=== PATIENT | female | born 1940 | race Caucasian/White ===

== ENCOUNTER → 2020-05-24 12:04 | Outpatient (BNVA) | payer MEDICARE, SELFPAY | PROVIDERS: PCP Family Medicine; Visit Provider Internal Medicine Endocrinology, Diabetes & Metabolism | DX: Z13.89 Encounter for screening for other disorder (principal) | CPT/HCPCS: 99212 ==

== ENCOUNTER 2020-05-31 08:05 | Outpatient (REF) | payer MEDICARE, SELFPAY ==
[2020-05-31 10:18] LABS: Estimated Average Glucose 148 mg/dL; Hemoglobin A1c % 6.8 %
[2020-05-31 10:29] LABS: Alkaline Phosphatase 85 U/L (39-117); Anion Gap 16 (12-20); Aspartate Amino Transferase 15 U/L (5-31); Bilirubin Total 0.4 mg/dL (0.0-1.0); Carbon Dioxide 20 mmol/L (22-29); Chloride 104 mmol/L (96-108); Cholesterol 88 mg/dL; Estimated Glomerular Filt Rate 16; Glucose Fasting 139 mg/dL (60-99); Potassium 4.6 mmol/l (3.3-5.1); Sodium 135 mmol/L (135-145); Total Protein 6.9 g/dL (6.5-8.0); Triglycerides 78 mg/dL
[2020-05-31 10:30] LABS: Alanine Aminotransferase 21 U/L (0-31); Calcium 10.8 mg/dL (8.4-10.2); HDL Cholesterol 39 mg/dL; LDL Cholesterol Calculated 34 mg/dl
[2020-05-31 11:09] LABS: Blood Urea Nitrogen 102 mg/dL (9-16)
[2020-05-31 14:17] LABS: Creatinine Urine 35.98 mg/dL; Microalbum/Creatinine Ratio Ur 714.2 ug/mg cr
[2020-06-01 07:22] LABS: LDL Cholesterol Direct 35 mg/dL (<100)
== END 2020-05-31 08:06 | disposition home or self-care (01) ==
LOC: HO.LAB 08:05
PROVIDERS: PCP Family Medicine; Visit Provider Internal Medicine Endocrinology, Diabetes & Metabolism
DX: Z13.89 Encounter for screening for other disorder (principal)
CPT/HCPCS: 80053; 80061; 82043; 83036; 83721

== ENCOUNTER 2020-05-31 12:58 | Inpatient (IN) | payer MEDICARE, SELFPAY ==
[2020-05-31] VITALS (7 sets, daily range): BP systolic 139–179; BP diastolic 56–77; PULSE 66–81; RESP 16–18; TEMP 36.5–36.8; O2SAT 96–100; BMI 17.3
--- NOTE | 2020-05-31 15:32 | ECG_ITS ---
Test Reason : ABNORMAL LABS, WEAKNESS Blood Pressure : / mmHG Vent. Rate : 078 BPM Atrial Rate : 078 BPM P-R Int : 214 ms QRS Dur : 076 ms QT Int : 346 ms P-R-T Axes : 039 018 013 degrees QTc Int : 394 ms Poor data quality Sinus rhythm with 1st degree A-V block Nonspecific ST abnormality Abnormal ECG When compared with ECG of 25-NOV-2018 13:48, Heart rate has increased Nonspecific ST abnormality is new Referred By: Kaleigh Brown Electronically Signed By:JACQUES DICKERSON MD
--- NOTE | 2020-05-31 15:32 | CT_ITS ---
EXAMINATION: CT ABDOMEN AND PELVIS WITHOUT CONTRAST CLINICAL INFORMATION: Nausea. Abdominal pain. COMPARISON: 01/15/2010. Ultrasound 08/26/2018 TECHNIQUE: Multidetector volumetric imaging was performed from the superior aspect of the liver through the pubic symphysis. Sagittal and coronal reformatted images were obtained on the technologist's workstation. This CT examination was performed using dose optimization techniques as appropriate, variously including the following: *Automated exposure control *Adjustment of mA and/or kV according to patient size (this includes techniques or standardized protocols for targeted exams where dose is matched to indication/reason for exam; i.e. extremities or head) *Use of iterative reconstruction technique DLP: 334 mGy-cm FINDINGS: LUNG BASES: Bibasilar atelectasis. Enlarged heart. Note is made of significantly dense bilateral breast tissue. LIVER, GALLBLADDER, AND BILIARY TREE: The liver is normal in size, shape, and attenuation. No focal hepatic lesion or biliary ductal dilatation is present. The gallbladder is unremarkable with no evidence of radiopaque gallstones, gallbladder wall thickening, or obvious pericholecystic inflammatory changes. PANCREAS: Unremarkable. SPLEEN: Unremarkable. ADRENAL GLANDS: Unremarkable. KIDNEYS AND URETERS: There is moderate to severe bilateral hydroureteronephrosis. Atrophic right kidney with cortical thinning. Normal size of the left kidney. There are no renal calculi. The ureters are dilated to the level of the bladder. BLADDER: The bladder is distended. Mild circumferential wall thickening with faint adjacent inflammation. Likely diverticulum at the dome of the bladder. No bladder calculi. GASTROINTESTINAL TRACT: The stomach is unremarkable. Normal caliber small bowel. There is no bowel obstruction. Colonic diverticulosis noted without diverticulitis. Mild to moderate colonic stool burden. No free air or free fluid. ABDOMINAL WALL: No significant hernia is appreciated. LYMPH NODES: Normal. VASCULAR: Normal caliber aorta with mild atherosclerotic calcification. PELVIC VISCERA: The uterus and adnexa are unremarkable. OSSEOUS STRUCTURES: No acute or suspicious osseous abnormality. CT/CT abdomen pelvis wo con IMPRESSION: Moderate to severe bilateral hydroureteronephrosis with dilatation to the level of the bladder. No calculi. Chronic right renal atrophy. The bladder is distended with mild circumferential wall thickening. The presence of bladder diverticulum suggests there may be an outlet obstruction. Cystitis also a consideration.
--- NOTE | 2020-05-31 15:33 | ED_ITS ---
HPI - Recheck/Abnormal Lab/Rx General Chief Complaint: Recheck/Abnormal Lab/Rx Stated Complaint: abnormal lab Time Seen by Provider: 05/31/20 15:31 Source: patient and family Mode of arrival: EMS Limitations: altered mental status History of Present Illness complaint: abnormal lab (BUN) Initial visit (ago): day(s) (today) Initial visit for: other (check up) Returns today for: called because of abnormal lab/test Symptoms since prior visit: no new symptoms Context: called for abnormal lab result Associated symptoms: malaise, nausea and abdominal pain Related Data Home Medications Medication Instructions Recorded Confirmed atorvastatin 10 mg tablet 10 mg PO DAILY 05/24/20 05/31/20 denosumab 60 mg/mL subcutaneous 60 mg SUBCUT [id number] 05/24/20 05/31/20 syringe terazosin 1 mg capsule 1 mg PO BEDTIME 05/24/20 05/31/20 insulin aspart U-100 [Novolog 7 - 10 unit SUBCUT TIDAC 05/31/20 05/31/20 Flexpen U-100 Insulin] insulin glargine U-300 conc 12 unit SUBCUT DAILY 05/31/20 05/31/20 [Toujeo SoloStar U-300 Insulin] patiromer calcium sorbitex 8.4 g PO DAILY 05/31/20 05/31/20 [Veltassa] Allergies Allergy/AdvReac Type Severity Reaction Status Date / Time levofloxacin [From LEVAQUIN] Allergy Unknown RASH Verified 05/31/20 15:17 Review of Systems Review of Systems: Constitutional : No Weight loss, No Fever, No Chills ENT/Mouth : No sore throat, No Rhinorrhea Eyes: No Swelling, No Redness Cardiovascular : No Chest Pain, No SOB, NoEdema Respiratory : No Cough, No Sputum, No Wheezing Gastrointestinal : Positive Nausea, noVomiting, no Diarrhea, positive abdominal Pain, No Hematochezia, No Melena Genitourinary : No Dysuria, No Urinary Frequency, No Hematuria, No Urgency Musculoskeletal : No joint pain, No Myalgias, No Joint Swelling Skin : No Skin Lesions, No rash Neuro : pos Weakness, No Numbness, No Dizziness, No Headache Psych : No Anxiety/Panic, No Depression Heme/Lymph: No Bruising, No Lymphadenopathy Endocrine : No Polyuria, No Polydipsia All other systems reviewed and are negative. [facility] Past Medical History Attestation statement: The following information was validated with the patient. Medical History (Updated 05/31/20 @ 17:12 by Kaleigh Brown DO) CKD (chronic kidney disease) stage 4, GFR 15-29 ml/min Dementia Diabetes type 2, uncontrolled Diabetic nephropathy associated with type 2 diabetes mellitus Intellectual disability detention (current) use of insulin Osteoporosis Parkinson disease Urinary retention Social History Social History Alcohol intake: never Smoking Status: Never smoker Smoked in Last 30 Days: No Use of substances other than those prescribed or required for medical reasons: No Advance Directives: No Advance Directives Information Provided: Yes Physical Exam Vital Signs: Vital Signs: Last Vital Signs Temp 98.0 F 05/31/20 15:35 Pulse 78 05/31/20 15:35 Resp 18 05/31/20 15:35 BP 165/67 H 05/31/20 15:35 Pulse Ox 97 05/31/20 15:35 Body Mass Index 17.3 Appearance: Appears frail and weak. Oriented X3. No acute distress. Eyes: Pupils equal, round and reactive to light. ENT: Pharynx normal. Neck: Normal inspection. Neck supple. CVS: Normal heart rate and rhythm. Pulses normal. Respiratory: No respiratory distress. Breath sounds normal. Abdomen: Soft and mild diffuse ttp - slightly distended Skin: Skin warm and dry. Normal skin color. Normal skin turgor. Extremities: No lower extremity edema. No calf ttp Neuro: Oriented X 3. No motor deficit. No sensory deficit. Course Course Course Narrative: IVF and maher ordered plan to admit, given likely cystitis, ceftriaxone ordered MDM - Recheck/Abnormal Lab/Rx MDM Narrative Medical decision making narrative: 80 yo female here from her doctors office for elevated BUN daughter notes for 3 days increased weakness / anorexia / malaise, denies GIB symptoms, her abdomen is ttp will need labs, IVF, CT scan for obstruction, anticipate admission Lab Data Result diagrams: 05/31/20 16:11 05/31/20 16:11 Labs: Lab Results 05/31/20 05/31/20 05/31/20 Range/Units 16:11 16:11 16:11 WBC 4.1 L (4.8-10.8) X10*3/uL RBC 3.57 L (4.20-5.50) X10*6/uL Hgb 10.8 L (12.0-16.0) g/dl Hct 33.3 L (37-47) % MCV 93.3 (80-98) fL MCH 30.3 (27.0-33.0) pg MCHC 32.4 (31.0-35.0) g/dl RDW 13.8 (11.0-16.0) % Plt Count 191 (160-400) X10*3/uL MPV 11.9 (9.4-12.3) fL Immature Gran % (Auto) 0.0 (0.0-0.4) % Neut % (Auto) 63.9 (45-73) % Lymph % (Auto) 23.4 (20-40) % [place] % (Auto) 10.0 (2-11) % Eos % (Auto) 2.2 (0-4) % Baso % (Auto) 0.5 (0-2) % Lymph # (Auto) 1.0 L (1.2-4.9) X10*3/uL [place] # (Auto) 0.4 (0.1-1.2) X10*3/uL Eos # (Auto) 0.1 (0.0-0.4) X10*3/uL Baso # (Auto) 0.0 (0.0-0.2) X10*3/uL Abs Immat Gran (auto) 0.00 (0.00-0.03) X10*3/uL Absolute Neuts (auto) 2.6 (2.0-8.3) X10*3/uL Absolute Nucleated RBC 0.000 (0.0-0.012) X10*3/uL Nucleated RBC % (auto) 0.0 (0.0-0.2) /100WBC Hold Blue Top SEE NOTE Sodium 137 (135-145) mmol/L Potassium 4.7 (3.3-5.1) mmol/l Chloride 103 (96-108) mmol/L Carbon Dioxide 22 (22-29) mmol/L Anion Gap 17 (12-20) BUN 104 H* (9-16) mg/dL Creatinine 2.94 H (0.5-1.4) mg/dL Estim Creat Clear Calc 9.0 Estimated GFR 15 Random Glucose 152 H (60-115) mg/dL Calcium 11.0 H (8.4-10.2) mg/dL Magnesium (1.6-2.6) mg/dL Total Bilirubin (0.0-1.0) mg/dL Direct Bilirubin (0.0-0.5) mg/dL AST (5-31) U/L ALT (0-31) U/L Alkaline Phosphatase (39-117) U/L Total Protein (6.5-8.0) g/dL Albumin (3.5-5.0) g/dL Lipase (8-78) U/L COVID-19 (GIANCARLO) (Negative) COVID-19 Clin Com 05/31/20 05/31/20 Range/Units 16:11 16:11 WBC (4.8-10.8) X10*3/uL RBC (4.20-5.50) X10*6/uL Hgb (12.0-16.0) g/dl Hct (37-47) % MCV (80-98) fL MCH (27.0-33.0) pg MCHC (31.0-35.0) g/dl RDW (11.0-16.0) % Plt Count (160-400) X10*3/uL MPV (9.4-12.3) fL Immature Gran % (Auto) (0.0-0.4) % Neut % (Auto) (45-73) % Lymph % (Auto) (20-40) % [place] % (Auto) (2-11) % Eos % (Auto) (0-4) % Baso % (Auto) (0-2) % Lymph # (Auto) (1.2-4.9) X10*3/uL [place] # (Auto) (0.1-1.2) X10*3/uL Eos # (Auto) (0.0-0.4) X10*3/uL Baso # (Auto) (0.0-0.2) X10*3/uL Abs Immat Gran (auto) (0.00-0.03) X10*3/uL Absolute Neuts (auto) (2.0-8.3) X10*3/uL Absolute Nucleated RBC (0.0-0.012) X10*3/uL Nucleated RBC % (auto) (0.0-0.2) /100WBC Hold Blue Top Sodium (135-145) mmol/L Potassium (3.3-5.1) mmol/l Chloride (96-108) mmol/L Carbon Dioxide (22-29) mmol/L Anion Gap (12-20) BUN (9-16) mg/dL Creatinine (0.5-1.4) mg/dL Estim Creat Clear Calc Estimated GFR Random Glucose (60-115) mg/dL Calcium (8.4-10.2) mg/dL Magnesium 2.1 (1.6-2.6) mg/dL Total Bilirubin 0.4 (0.0-1.0) mg/dL Direct Bilirubin < 0.2 (0.0-0.5) mg/dL AST 16 (5-31) U/L ALT 19 (0-31) U/L Alkaline Phosphatase 87 (39-117) U/L Total Protein 7.1 (6.5-8.0) g/dL Albumin 3.9 (3.5-5.0) g/dL Lipase 28 (8-78) U/L COVID-19 (GIANCARLO) Negative (Negative) COVID-19 Clin Com See Note Discharge Plan Discharge Clinical Impression: Elevated BUN, Weakness Renal failure, chronic Qualifiers: Chronic kidney disease stage: unspecified stage Qualified Code(s): N18.9 - Chronic kidney disease, unspecified Patient Disposition: Admitted As Inpatient
[2020-05-31] MEDS: 0.9 % Sodium Chloride 500 ML IV (16:15)
[2020-05-31 16:18] LABS: Basophils Percent Auto 0.5 % (0-2); Eosinophils Absolute Auto 0.1 X10*3/uL (0.0-0.4); Eosinophils Percent Auto 2.2 % (0-4); Hematocrit 33.3 % (37-47); Hemoglobin 10.8 g/dl (12.0-16.0); Lymphocytes Percent Auto 23.4 % (20-40); Mean Corpuscular HGB Conc 32.4 g/dl (31.0-35.0); Mean Corpuscular Hemoglobin 30.3 pg (27.0-33.0); Mean Corpuscular Volume 93.3 fL (80-98); Mean Platelet Volume 11.9 fL (9.4-12.3); Monocytes Absolute Auto 0.4 X10*3/uL (0.1-1.2); Neutrophils Absolute Auto 2.6 X10*3/uL (2.0-8.3); Neutrophils Percent Auto 63.9 % (45-73); Platelet Count 191 X10*3/uL (160-400); Red Blood Count 3.57 X10*6/uL (4.20-5.50); Red Cell Distribution Width 13.8 % (11.0-16.0); White Blood Count 4.1 X10*3/uL (4.8-10.8)
[2020-05-31 16:19] LABS: MANUAL DIFF FLAG NO
[2020-05-31 16:37] LABS: COVID-19 Test Negative (Negative); IDNOW Serial# 9DD0AD1C
[2020-05-31 16:54] LABS: Alanine Aminotransferase 19 U/L (0-31); Albumin Level 3.9 g/dL (3.5-5.0); Alkaline Phosphatase 87 U/L (39-117); Anion Gap 17 (12-20); Aspartate Amino Transferase 16 U/L (5-31); Bilirubin Direct < 0.2 mg/dL (0.0-0.5); Bilirubin Total 0.4 mg/dL (0.0-1.0); Carbon Dioxide 22 mmol/L (22-29); Chloride 103 mmol/L (96-108); Glucose Random 152 mg/dL (60-115); Lipase 28 U/L (8-78); Magnesium 2.1 mg/dL (1.6-2.6); Potassium 4.7 mmol/l (3.3-5.1); Sodium 137 mmol/L (135-145); Total Protein 7.1 g/dL (6.5-8.0)
[2020-05-31] MEDS: ondansetron HCL 4 MG/2 ML VIAL IVPUSH (16:57)
--- NOTE | 2020-05-31 16:58 | PC.NURSE ---
iv inserted, labs drawn, covid swab performed, pt ivf started and medicated per order, will continue to monitor
[2020-05-31 17:05] LABS: Blood Urea Nitrogen 104 mg/dL (9-16); Estimated Glomerular Filt Rate 15
[2020-05-31 17:49] LABS: Lactic Acid 1.4 mmol/L (0.5-2.0)
--- NOTE | 2020-05-31 17:57 | PC.NURSE ---
CONN CATH INSERTED, URINE OBTAINED, BC DRAWN
[2020-05-31] MEDS: cefTRIAXone sodium 1 GM in 0.9 % Sodium Chloride 50 ML IV (18:08)
--- NOTE | 2020-05-31 18:09 | PC.NURSE ---
iv antibiotis given per order
[2020-05-31 18:19] LABS: Glucose Urine UA NEG (NEG); Leukocyte Esterase Urine 3+ (NEG); Nitrite Urine NEG (NEG); Urine Blood 3+ (NEG); Urine Ketones NEG (NEG); Urine Protein 1+ MG/DL (NEG-TRACE)
[2020-05-31 18:21] LABS: Appearance Urine CLOUDY; Color Urine YELLOW
[2020-05-31 18:30] LABS: Bacteria Urine 3+ /LPF; WBC Urine TNTC /HPF (0-4)
--- NOTE | 2020-05-31 20:14 | PM.IMHP ---
History of Present Illness Date of Service: 05/31/20 <Sabra Ramírez NP - Last Filed: 05/31/20 20:22> Chief Complaint: Abnormal labs <Sabra Ramírez NP - Last Filed: 05/31/20 20:22> 80-year-old Slovenian-speaking woman presented to the ER with her sister. Apparently she had went few days ago for lab work at her PCPs office and was called today and told to come to the ER due to abnormal labs. Patient's sister who is the patient's primary care provider reported that the patient had been in her usual state of health. No fever, chills, nausea vomiting, diarrhea. Her BUN was 104, creatinine 2.94. Abdominal CT showed moderate to severe bilateral hydro ureter nephrosis with dilation to the level of the bladder. Possible bladder outlet obstruction, cystitis considered. She was given Zofran, ceftriaxone and 500 mL of IV fluids. Patient be admitted for further management treatment of UTI, hydronephrosis. <Sabra Ramírez NP - Last Filed: 05/31/20 20:22> [facility] Medical History: Medical History (Updated 06/08/20 @ 00:00 by Shalini Morrison) CKD (chronic kidney disease) stage 4, GFR 15-29 ml/min Dementia Diabetes type 2, uncontrolled Diabetic nephropathy associated with type 2 diabetes mellitus Intellectual disability senior living (current) use of insulin Osteoporosis Parkinson disease Urinary retention <Sabra Ramírez NP - Last Filed: 05/31/20 20:22> Family History: Family History (System 06/01/20 @ 10:55 by Carline Butt) Father No problems noted. Mother Diabetes <Sabra Ramírez NP - Last Filed: 05/31/20 20:22> Social History: Social History (System 06/01/20 @ 10:55 by Carline Butt) Household Members: Family Housing: Apartment Alcohol intake: never Smoking Status: Never smoker service: No Current occupational status: disabled <Sabra Ramírez NP - Last Filed: 05/31/20 20:22> Meds Allergies/Adverse reactions: Allergies Allergy/AdvReac Type Severity Reaction Status Date / Time levofloxacin [From LEVAQUIN] Allergy Unknown RASH Verified 06/01/20 10:55 <Sabra Ramírez NP - Last Filed: 05/31/20 20:22> Home medications: Home Medications Medication Instructions Recorded Confirmed Type atorvastatin 10 mg tablet 10 mg PO DAILY 05/24/20 05/31/20 History denosumab 60 mg/mL subcutaneous 60 mg SUBCUT [id number] 05/24/20 05/31/20 History syringe Toujeo SoloStar U-300 Insulin 12 unit SUBCUT DAILY 05/31/20 05/31/20 History Veltassa 8.4 g PO DAILY 05/31/20 05/31/20 History insulin aspart U-100 [Novolog 7 - 10 unit SUBCUT TIDAC 05/31/20 05/31/20 History Flexpen U-100 Insulin] <Sabra Ramírez NP - Last Filed: 05/31/20 20:22> Physical Exam Vital Signs and Narrative: Vital Signs: Last Vital Signs Temp 98.0 F 05/31/20 20:09 Pulse 72 05/31/20 20:09 Resp 16 05/31/20 20:09 BP 169/65 H 05/31/20 20:09 Pulse Ox 97 05/31/20 20:09 Body Mass Index 17.3 <Sabra Ramírez NP - Last Filed: 05/31/20 20:22> Results Labs CBC and Chem 7: : 06/04/20 09:06 06/04/20 09:06 <Sabra Ramírez NP - Last Filed: 05/31/20 20:22> Labs: Laboratory Results - last 24 hr 05/31/20 05/31/20 05/31/20 16:11 16:11 16:11 MCV 93.3 MCH 30.3 MCHC 32.4 RDW 13.8 Plt Count 191 MPV 11.9 Immature Gran % (Auto) 0.0 Neut % (Auto) 63.9 Lymph % (Auto) 23.4 [place] % (Auto) 10.0 Eos % (Auto) 2.2 Baso % (Auto) 0.5 Lymph # (Auto) 1.0 L [place] # (Auto) 0.4 Eos # (Auto) 0.1 Baso # (Auto) 0.0 Abs Immat Gran (auto) 0.00 Absolute Neuts (auto) 2.6 Absolute Nucleated RBC 0.000 Nucleated RBC % (auto) 0.0 Hold Blue Top SEE NOTE Anion Gap 17 Estim Creat Clear Calc 9.0 Estimated GFR 15 Random Glucose 152 H Lactic Acid Calcium 11.0 H Magnesium Total Bilirubin Direct Bilirubin AST ALT Alkaline Phosphatase Total Protein Albumin Lipase Urine Color Urine Appearance Urine pH Ur Specific [place] Urine Protein Urine Glucose (UA) Urine Ketones Urine Blood Urine Nitrite Ur Leukocyte Esterase Urine RBC Urine WBC Ur Squamous Epith Cells Urine Bacteria COVID-19 (GIANCARLO) COVID-19 Clin Com 05/31/20 05/31/20 05/31/20 16:11 16:11 17:26 MCV MCH MCHC RDW Plt Count MPV Immature Gran % (Auto) Neut % (Auto) Lymph % (Auto) [place] % (Auto) Eos % (Auto) Baso % (Auto) Lymph # (Auto) [place] # (Auto) Eos # (Auto) Baso # (Auto) Abs Immat Gran (auto) Absolute Neuts (auto) Absolute Nucleated RBC Nucleated RBC % (auto) Hold Blue Top Anion Gap Estim Creat Clear Calc Estimated GFR Random Glucose Lactic Acid 1.4 Calcium Magnesium 2.1 Total Bilirubin 0.4 Direct Bilirubin < 0.2 AST 16 ALT 19 Alkaline Phosphatase 87 Total Protein 7.1 Albumin 3.9 Lipase 28 Urine Color Urine Appearance Urine pH Ur Specific [place] Urine Protein Urine Glucose (UA) Urine Ketones Urine Blood Urine Nitrite Ur Leukocyte Esterase Urine RBC Urine WBC Ur Squamous Epith Cells Urine Bacteria COVID-19 (GIANCARLO) Negative COVID-19 Clin Com See Note 05/31/20 17:51 MCV MCH MCHC RDW Plt Count MPV Immature Gran % (Auto) Neut % (Auto) Lymph % (Auto) [place] % (Auto) Eos % (Auto) Baso % (Auto) Lymph # (Auto) [place] # (Auto) Eos # (Auto) Baso # (Auto) Abs Immat Gran (auto) Absolute Neuts (auto) Absolute Nucleated RBC Nucleated RBC % (auto) Hold Blue Top Anion Gap Estim Creat Clear Calc Estimated GFR Random Glucose Lactic Acid Calcium Magnesium Total Bilirubin Direct Bilirubin AST ALT Alkaline Phosphatase Total Protein Albumin Lipase Urine Color YELLOW Urine Appearance CLOUDY Urine pH 7.0 Ur Specific [place] 1.010 Urine Protein 1+ H Urine Glucose (UA) NEG Urine Ketones NEG Urine Blood 3+ H Urine Nitrite NEG Ur Leukocyte Esterase 3+ H Urine RBC 76-150 H Urine WBC TNTC H Ur Squamous Epith Cells NONE Urine Bacteria 3+ COVID-19 (GIANCARLO) COVID-19 Clin Com <Sabra Ramírez NP - Last Filed: 05/31/20 20:22> Imaging Radiologist's Impressions: Impressions Abdomen/Pelvis CT 05/31/20 15:32 IMPRESSION: Moderate to severe bilateral hydroureteronephrosis with dilatation to the level of the bladder. No calculi. Chronic right renal atrophy. The bladder is distended with mild circumferential wall thickening. The presence of bladder diverticulum suggests there may be an outlet obstruction. Cystitis also a consideration. <Sabra Ramírez NP - Last Filed: 05/31/20 20:22> Assessment and Plan (1) DELORIS (acute kidney injury): Status: Resolved <Sabra Ramírez NP - Last Filed: 05/31/20 20:22> (2) UTI (urinary tract infection): Status: Resolved <Sabra Ramírez NP - Last Filed: 05/31/20 20:22> 80-year-old woman admitted with DELORIS on CKD, bilateral hydroureteronephrosis. Hydronephrosis/possible bladder outlet obstruction. Márquez catheter placed, urine draining, urology to follow. Continue terazosin. UTI. Rocephin , follow urine culture. DELORIS. Related to hydronephrosis /bladder outlet obstruction. IV fluids. Avoid nephrotoxins. Normocytic anemia. No signs of bleeding. Follow CBC daily. Diabetes mellitus. Sliding scale, ADA diet, long-acting insulin. DVT prophylaxis with heparin Case discussed with Dr. Nunez DNR <Sabra Ramírez NP - Last Filed: 05/31/20 20:22>
--- NOTE | 2020-05-31 20:47 | PC.NURSE ---
patient awake-non verbal at baseline, warm blanket given, vitals continue to be stable, maher cath patient/draining, will continue to monitor.
--- NOTE | 2020-05-31 23:24 | PC.NURSE ---
Report taken from Tiffanie, this RN resuming care.
--- NOTE | 2020-05-31 23:29 | PC.NURSE ---
Pt found asleep in bed, nonverbal at baseline, resting in NAD. VSS. Continue to monitor.
--- NOTE | 2020-06-01 00:42 | PC.NURSE ---
hvac engineering technician at bedside providing food/drink to pt. Pt tolerating PO well, swallowing soft foods without difficulty.
--- NOTE | 2020-06-01 01:14 | PM.EVENT ---
Event Note Date of Service: 05/31/20 Event Note: 80 y/o female who presented from home due to abnormal labs. To be admitted due to bialteral hydroureteronephrosis likely secondary to obstructive uropathy and UI. ROS/Physical exam as documented in H & P otherwise unremarkable. PMHx: CKD (chronic kidney disease) stage 4, GFR 15-29 ml/min Dementia Diabetes type 2, uncontrolled Diabetic nephropathy associated with type 2 diabetes mellitus Intellectual disability senior care (current) use of insulin Osteoporosis Parkinson disease Urinary retention Psx: none Toxic habits: No documented hx of alcohol abuse, smoking or IVDA Assessment/Plan: 1- Bilaeral Hydroureteronephrosis likely secondary to Obstructive uropathy 2- UTI Continue with Rocephin for gram neg coverage Follow up Bcx/Ucx Continue with M[facility]quez Urology to follow up in am Rest of the plan as discussed with JUWAN Ramírez per H and P.
--- NOTE | 2020-06-01 01:41 | PC.NURSE ---
[facility] RN unavailable to take report at this time, awaiting call back.
--- NOTE | 2020-06-01 02:35 | PC.NURSE ---
Report given to STEVE Waterman RN. Pt being prepared for transport to floor.
[2020-06-01 04:15] VITALS: BP 162/58; PULSE 69; RESP 18; TEMP 36.4
[2020-06-01] MEDS: 0.9 % Sodium Chloride Flush 3 ML SYRINGE IVFLUSH (05:59)
[2020-06-01] MEDS: 0.9 % Sodium Chloride 1,000 ML 75 ML IVCONT ×2 (05:59→20:12)
[2020-06-01 06:38] LABS: MANUAL DIFF FLAG NO
[2020-06-01 06:59] LABS: Eosinophils Absolute Auto 0.2 X10*3/uL (0.0-0.4); Eosinophils Percent Auto 4.4 % (0-4); Hematocrit 29.8 % (37-47); Hemoglobin 9.7 g/dl (12.0-16.0); Lymphocytes Absolute Auto 1.2 X10*3/uL (1.2-4.9); Lymphocytes Percent Auto 30.2 % (20-40); Mean Corpuscular HGB Conc 32.6 g/dl (31.0-35.0); Mean Corpuscular Hemoglobin 29.9 pg (27.0-33.0); Mean Platelet Volume 12.5 fL (9.4-12.3); Monocytes Absolute Auto 0.4 X10*3/uL (0.1-1.2); Monocytes Percent Auto 10.2 % (2-11); Neutrophils Absolute Auto 2.1 X10*3/uL (2.0-8.3); Neutrophils Percent Auto 54.2 % (45-73); Platelet Count 181 X10*3/uL (160-400); Red Blood Count 3.24 X10*6/uL (4.20-5.50); Red Cell Distribution Width 13.8 % (11.0-16.0); White Blood Count 3.8 X10*3/uL (4.8-10.8)
[2020-06-01 07:12] LABS: Anion Gap 13 (12-20); Blood Urea Nitrogen 97 mg/dL (9-16); Calcium 10.2 mg/dL (8.4-10.2); Carbon Dioxide 23 mmol/L (22-29); Chloride 108 mmol/L (96-108); Creatinine Clr Calc Pharmacy 9.4; Estimated Glomerular Filt Rate 16; Glucose Random 226 mg/dL (60-115); Potassium 5.1 mmol/l (3.3-5.1); Sodium 139 mmol/L (135-145)
[2020-06-01 07:51] LABS: Glucose, Whole Blood 241 mg/dL (60-115)
[2020-06-01 08:00] VITALS: BP 142/60; PULSE 73; RESP 20; TEMP 37.1; O2SAT 96
--- NOTE | 2020-06-01 08:56 | MHC.CM.PN ---
Patient has a diagnosis of Dementia and Intellectual disability; CM spoke with Sister/HCP/In School Suspension Coordinator/Blanca at [phone].Patient lives in a house with her Sister, [id number] and Grandson and she uses a w/c to assist with mobility. Patient receives a CCA/RN visit monthly and the goal is to return home. CM has initiated and will follow for dc planning. IMM addressed with Sister and the original will be mailed certified letter to her and a copy has been placed on the chart. PCP is Dr. Audra Perez.
[2020-06-01] MEDS: Atorvastatin Calcium 10 MG TABLET PO (11:19)
[2020-06-01 11:26] LABS: Glucose, Whole Blood 224 mg/dL (60-115)
[2020-06-01 12:00] VITALS: BP 152/60; PULSE 79; RESP 20; TEMP 36.6; O2SAT 97
[2020-06-01] MEDS: Insulin Lispro 100 UNIT/ML 3 ML VIAL SUBCUT (13:00)
--- NOTE | 2020-06-01 13:33 | PC.NURSE ---
blood sugar 224, pt didn't eat breakfast and ate minimal lunch. 7 units of scheduled insulin ordered as well as sliding scale. md made aware, advised to give sliding scale only. small amount of bright red blood noted to maher catheter insertion site, pink tinged urine present in maher bag. denies any pain. md and urologist aware.
[2020-06-01 14:51] VITALS: BMI 17.3
[2020-06-01 15:41] VITALS: BP 156/71; PULSE 82; RESP 18; TEMP 36.5; O2SAT 98
--- NOTE | 2020-06-01 15:47 | HO.PM.IMPN ---
Subjective Subjective Date of Service: 06/01/20 Interval History: patient seen and examined at bedside patient reported abdominal pain Physical Exam Vital Signs: Vital Signs: Last Vital Signs Temp 97.7 F 06/01/20 15:41 Pulse 82 06/01/20 15:41 Resp 18 06/01/20 15:41 BP 156/71 H 06/01/20 15:41 Pulse Ox 98 06/01/20 15:41 Body Mass Index 17.3 Appearance: Appears frail and weak. Oriented X3. No acute distress. Eyes: Pupils equal, round and reactive to light. ENT: Pharynx normal. Neck: Normal inspection. Neck supple. CVS: Normal heart rate and rhythm. Pulses normal. Respiratory: No respiratory distress. Breath sounds normal. Abdomen: Soft and mild diffuse ttp - slightly distended Skin: Skin warm and dry. Normal skin color. Normal skin turgor. Extremities: No lower extremity edema. No calf ttp Neuro: Oriented X 3. No motor deficit. No sensory deficit. Objective Data Current Medications Generic Name Dose Route Start Last Admin Trade Name Freq PRN Reason Stop Dose Admin Acetaminophen 650 mg 06/01/20 04:04 Acetaminophen 325 Mg Tablet PO Q6H PRN Pain, Mild (Pain Scale 1-3) Atorvastatin Calcium 10 mg 06/01/20 09:00 06/01/20 11:19 Atorvastatin Calcium 10 Mg Tablet PO 10 mg DAILY LEIGH Administration Doxazosin Mesylate 1 mg 06/01/20 21:00 Doxazosin Mesylate 1 Mg Tablet PO BEDTIME LEIGH Heparin Sodium (Porcine) 5,000 unit 06/01/20 05:00 06/01/20 05:59 Heparin Sodium,Porcine 5,000 Unit/Ml Vial SUBCUT Not Given Q12H [facility] Ceftriaxone Sodium 1 gm/ 50 mls @ 100 mls/hr 06/01/20 18:00 Sodium Chloride IV Q24H LEIGH Sodium Chloride 1,000 mls @ 75 mls/hr 06/01/20 04:04 06/01/20 05:59 Ns IVCONT 75 mls/hr .[id number] LEIGH Administration Insulin Glargine 12 unit 06/01/20 09:00 06/01/20 11:19 Insulin Glargine,Hum.Rec.Anlog 100 Unit/Ml 10 Ml Vial SUBCUT Not Given DAILY [facility] Insulin Human Lispro 7 unit 06/01/20 07:30 06/01/20 13:01 Insulin Lispro 100 Unit/Ml 3 Ml Vial SUBCUT Not Given TIDAC [facility] Insulin Human Lispro 0 unit 06/01/20 04:04 06/01/20 13:00 Insulin Lispro 100 Unit/Ml 3 Ml Vial SUBCUT 4 unit QIDACHS [facility] Administration Protocol Non-Formulary Medication 60 mg 06/01/20 04:04 Denosumab SUBCUT [id number] [facility] Non-Formulary Medication 8.4 gm 06/01/20 09:00 Patiromer Calcium Sorbitex [Veltassa] PO DAILY [facility] Ondansetron HCl 4 mg 06/01/20 04:04 Ondansetron Hcl 4 Mg/2 Ml Vial IVPUSH Q8H PRN Nausea and Vomiting Pharmacy Consult 1 each 05/31/20 15:31 Consult Rx Perform Med Rec MISCELLANE ONCE PRN Consult order Sodium Chloride 3 ml 06/01/20 04:04 06/01/20 11:19 0.9 % Sodium Chloride Flush 3 Ml Syringe IVFLUSH Not Given QSHIFT [facility] Labs CBC & Chem 7: 06/01/20 06:08 06/01/20 06:01 Microbiology Microbiology Results: Microbiology 05/31/20 18:23 Urine clean catch - Clean Catch Midstream Urine Culture - Preliminary Culture in progress. Assessment and Plan (1) DELORIS (acute kidney injury): Status: Acute (2) UTI (urinary tract infection): Status: Acute Assessment and Plan: 80-year-old woman admitted with DELORIS on CKD, bilateral hydroureteronephrosis. Hydronephrosis/possible bladder outlet obstruction. continueFoley catheter placed, Continue terazosin urology consult pending UTI. continueRocephin urine culture DELORIS. Related to hydronephrosis /bladder outlet obstruction. continue IV fluids. Avoid nephrotoxins. continue folic catheter Normocytic anemia. No signs of bleeding. Follow CBC daily. Diabetes mellitus. continue Sliding scale, ADA diet, long-acting insulin. DVT prophylaxis with heparin
[2020-06-01 16:14] LABS: Glucose, Whole Blood 232 mg/dL (60-115)
--- NOTE | 2020-06-01 17:06 | PM.UROCN ---
History of Present Illness Consult details Consult date: 06/01/20 Narrative: 80-year-old Surinamese-speaking female. Known to Urology. Had been reviewed previously. Has developmental delay. Looked after by her family. 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 At this point presented with imaging that did show moderate to severe bilateral hydroureteronephrosis. Dilated to the level of bladder. Elevated creatinine. If creatinine does not resolve with gentle fluids will need timed voiding. Either Márquez catheter and repeat creatinine after 48 hours. Or will need intermittent catheterization. This had been discussed before with the family. With they had felt neither approach would be appropriate with her for longer-term. Baseline creatinine 2.4 in November 2018. 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 Mother Diabetes Social History Social History (System 06/01/20 @ 10:55 by Carline Butt) Do you presently have visiting nurse or other home services: No Smoking Status: Never smoker Smoked in Last 30 Days: No Use of substances other than those prescribed or required for medical reasons: Unknown Currently Displaying Signs/Symptoms of Drug Intoxication Withdrawal: No Any prior treatment program specific to substance use: No Advance Directives: No Advance Directives Information Provided: Yes Advance Directives on File: No Do you have thoughts of harming others: None Do you have a plan to hurt others: No Plan Recently lost weight without trying: Unsure Meds Allergies Allergy/AdvReac Type Severity Reaction Status Date / Time levofloxacin [From LEVAQUIN] Allergy Unknown RASH Verified 06/01/20 10:55 Home Medications Medication Instructions Recorded Confirmed Type atorvastatin 10 mg tablet 10 mg PO DAILY 05/24/20 05/31/20 History denosumab 60 mg/mL subcutaneous 60 mg SUBCUT [id number] 05/24/20 05/31/20 History syringe terazosin 1 mg capsule 1 mg PO BEDTIME 05/24/20 05/31/20 History insulin aspart U-100 [Novolog 7 - 10 unit SUBCUT TIDAC 05/31/20 05/31/20 History Flexpen U-100 Insulin] insulin glargine U-300 conc 12 unit SUBCUT DAILY 05/31/20 05/31/20 History [Toujeo SoloStar U-300 Insulin] patiromer calcium sorbitex 8.4 g PO DAILY 05/31/20 05/31/20 History [Veltassa] Physical Exam Vital Signs: Vital Signs: Last Vital Signs Temp 97.7 F 06/01/20 15:41 Pulse 82 06/01/20 15:41 Resp 18 06/01/20 15:41 BP 156/71 H 06/01/20 15:41 Pulse Ox 98 06/01/20 15:41 Body Mass Index 17.3 Const: General: cooperative, healthy appearing, comfortable and no acute distress Nutritional Appearance: average body habitus Orientation/consciousness: oriented to person, oriented to place and oriented to time Eyes: General: appearance normal, both eyes and all related structures Chest: Chest palpation & inspection: normal inspection of the chest Resp: Effort & Inspection: normal respiratory effort Cardio: Rate: regular rate GI: Inspection: Yes normal to inspection Skin: Hair: normal Neuro: General: oriented to person, oriented to place and oriented to time Extrem: General: Yes normal to inspection Results Labs Result diagrams: 06/01/20 06:08 06/01/20 06:01 Labs: Abnormal lab results 05/31/20 06/01/20 06/01/20 Range/Units 17:51 06:01 06:08 WBC 3.8 L (4.8-10.8) X10*3/uL RBC 3.24 L (4.20-5.50) X10*6/uL Hgb 9.7 L (12.0-16.0) g/dl Hct 29.8 L (37-47) % MPV 12.5 H (9.4-12.3) fL Eos % (Auto) 4.4 H (0-4) % BUN 97 H* (9-16) mg/dL Creatinine 2.81 H (0.5-1.4) mg/dL POC Glucose (60-115) mg/dL Random Glucose 226 H D (60-115) mg/dL Urine Protein 1+ H (NEG-TRACE) MG/DL Urine Blood 3+ H (NEG) Ur Leukocyte Esterase 3+ H (NEG) Urine RBC 76-150 H (0) /HPF Urine WBC TNTC H (0-4) /HPF 06/01/20 06/01/20 06/01/20 Range/Units 07:46 11: 16:09 WBC (4.8-10.8) X10*3/uL RBC (4.20-5.50) X10*6/uL Hgb (12.0-16.0) g/dl Hct (37-47) % MPV (9.4-12.3) fL Eos % (Auto) (0-4) % BUN (9-16) mg/dL Creatinine (0.5-1.4) mg/dL POC Glucose 241 H 224 H 232 H (60-115) mg/dL Random Glucose (60-115) mg/dL Urine Protein (NEG-TRACE) MG/DL Urine Blood (NEG) Ur Leukocyte Esterase (NEG) Urine RBC (0) /HPF Urine WBC (0-4) /HPF Short CBC 06/01/20 Range/Units 06:08 WBC 3.8 L (4.8-10.8) X10*3/uL Hgb 9.7 L (12.0-16.0) g/dl Hct 29.8 L (37-47) % Plt Count 181 (160-400) X10*3/uL BMP 06/01/20 06:01 Sodium 139 Potassium 5.1 Chloride 108 Carbon Dioxide 23 BUN 97 H* Creatinine 2.81 H Calcium 10.2 D Urine 05/31/20 Range/Units 17:51 Urine Color YELLOW Urine Appearance CLOUDY Urine pH 7.0 (5.0-8.0) Ur Specific Bartley 1.010 (1.005-1.025) Urine Protein 1+ H (NEG-TRACE) MG/DL Urine Glucose (UA) NEG (NEG) MG/DL All other labs normal. Moderate to severe bilateral hydroureteronephrosis with dilatation to the level of the bladder. No calculi. Chronic right renal atrophy. The bladder is distended with mild circumferential wall thickening. The presence of bladder diverticulum suggests there may be an outlet obstruction. Cystitis also a consideration. Assessment and Plan (1) Bladder outlet obstruction: Status: Acute (2) Diabetic neuropathy associated with diabetes mellitus due to underlying condition: Status: Acute On alpha-renetta for emptying If failure to improve creatinine with hydration could consider short-term Márquez catheter use Procedures Abscess I/D Date of Service: 06/01/20
[2020-06-01] MEDS: Insulin Lispro 100 UNIT/ML 3 ML VIAL 7 UNIT SUBCUT (17:17)
[2020-06-01] MEDS: Heparin Sodium,Porcine 5,000 UNIT/ML VIAL 5000 UNIT SUBCUT (17:18)
[2020-06-01] MEDS: cefTRIAXone sodium 1 GM in 0.9 % Sodium Chloride 50 ML IV (17:27)
[2020-06-01 19:14] VITALS: BP 176/74; PULSE 72; RESP 18; TEMP 36.8; O2SAT 97
[2020-06-01] MEDS: Doxazosin Mesylate 1 MG TABLET PO (20:12)
[2020-06-01 20:31] LABS: Glucose, Whole Blood 96 mg/dL (60-115)
[2020-06-01 23:22] VITALS: BP 142/57; PULSE 82; RESP 20; TEMP 36.7; O2SAT 97
[2020-06-02] MEDS: 0.9 % Sodium Chloride Flush 3 ML SYRINGE IVFLUSH (00:39)
[2020-06-02 03:12] VITALS: BP 140/76; PULSE 82; RESP 20; TEMP 36.9; O2SAT 97
[2020-06-02] MEDS: Heparin Sodium,Porcine 5,000 UNIT/ML VIAL 5000 UNIT SUBCUT ×2 (05:31→18:14)
[2020-06-02 07:26] VITALS: BP 160/72; PULSE 50; RESP 20; TEMP 36.7; O2SAT 97
[2020-06-02 07:43] LABS: Glucose, Whole Blood 165 mg/dL (60-115)
[2020-06-02] MEDS: Insulin Lispro 100 UNIT/ML 3 ML VIAL SUBCUT ×3 (08:19→21:37)
[2020-06-02] MEDS: Insulin Lispro 100 UNIT/ML 3 ML VIAL 7 UNIT SUBCUT ×2 (08:19→11:58)
[2020-06-02] MEDS: Atorvastatin Calcium 10 MG TABLET PO (08:20)
[2020-06-02] MEDS: 0.9 % Sodium Chloride 1,000 ML 75 ML IVCONT ×2 (08:22→21:37)
[2020-06-02 10:25] LABS: MANUAL DIFF FLAG NO
[2020-06-02] MEDS: Insulin Glargine,Hum.rec.anlog 100 UNIT/ML 10 ML VIAL 12 UNIT SUBCUT (10:26)
[2020-06-02 10:38] LABS: Basophils Percent Auto 0.9 % (0-2); Eosinophils Absolute Auto 0.1 X10*3/uL (0.0-0.4); Eosinophils Percent Auto 2.1 % (0-4); Hematocrit 28.9 % (37-47); Hemoglobin 9.3 g/dl (12.0-16.0); Imm Gran Abs Auto 0.05 X10*3/uL (0.00-0.03); Imm Gran Pct Auto 1.2 % (0.0-0.4); Lymphocytes Percent Auto 22.9 % (20-40); Mean Corpuscular HGB Conc 32.2 g/dl (31.0-35.0); Mean Corpuscular Volume 93.2 fL (80-98); Mean Platelet Volume 12.5 fL (9.4-12.3); Monocytes Absolute Auto 0.3 X10*3/uL (0.1-1.2); Monocytes Percent Auto 6.4 % (2-11); Neutrophils Absolute Auto 2.8 X10*3/uL (2.0-8.3); Neutrophils Percent Auto 66.5 % (45-73); Platelet Count 174 X10*3/uL (160-400); Red Cell Distribution Width 14.1 % (11.0-16.0); White Blood Count 4.2 X10*3/uL (4.8-10.8)
--- NOTE | 2020-06-02 11:24 | MHC.CM.PN ---
The goal for dc continues to be for Patient to return home with her family/Caretakers. Patient is still receiving IV Ceftriaxone for a UTI and CM will continue to follow for dc planning and possible need to adjust the dc plan.
[2020-06-02 11:25] LABS: Glucose, Whole Blood 187 mg/dL (60-115)
[2020-06-02 11:29] LABS: Anion Gap 13 (12-20); Blood Urea Nitrogen 70 mg/dL (9-16); Carbon Dioxide 20 mmol/L (22-29); Chloride 111 mmol/L (96-108); Creatinine Clr Calc Pharmacy 11.1; Estimated Glomerular Filt Rate 20; Glucose Random 242 mg/dL (60-115); Potassium 4.1 mmol/l (3.3-5.1); Sodium 140 mmol/L (135-145)
[2020-06-02 12:00] VITALS: BP 158/70; PULSE 71; RESP 18; TEMP 36.6; O2SAT 98
--- NOTE | 2020-06-02 14:42 | HO.PM.IMPN ---
Subjective Subjective Date of Service: 06/02/20 Interval History: patient seen and examined at bedside patient reported some abdominal discomfort Review of Systems Constitutional : No Weight loss, No Fever, No Chills ENT/Mouth : No sore throat, No Rhinorrhea Eyes: No Swelling, No Redness Cardiovascular : No Chest Pain, No SOB, NoEdema Respiratory : No Cough, No Sputum, No Wheezing Gastrointestinal : Positive Nausea, noVomiting, no Diarrhea, positive abdominal Pain, No Hematochezia, No Melena Genitourinary : No Dysuria, No Urinary Frequency, No Hematuria, No Urgency Musculoskeletal : No joint pain, No Myalgias, No Joint Swelling Skin : No Skin Lesions, No rash Neuro : pos Weakness, No Numbness, No Dizziness, No Headache Psych : No Anxiety/Panic, No Depression Heme/Lymph: No Bruising, No Lymphadenopathy Endocrine : No Polyuria, No Polydipsia All other systems reviewed and are negative. Physical Exam Vital Signs: Vital Signs: Last Vital Signs Temp 97.7 F 06/01/20 15:41 Pulse 82 06/01/20 15:41 Resp 18 06/01/20 15:41 BP 156/71 H 06/01/20 15:41 Pulse Ox 98 06/01/20 15:41 Body Mass Index 17.3 Appearance: Appears frail and weak. Oriented X3. No acute distress. Eyes: Pupils equal, round and reactive to light. ENT: Pharynx normal. Neck: Normal inspection. Neck supple. CVS: Normal heart rate and rhythm. Pulses normal. Respiratory: No respiratory distress. Breath sounds normal. Abdomen: Soft and mild diffuse ttp - slightly distended Skin: Skin warm and dry. Normal skin color. Normal skin turgor. Extremities: No lower extremity edema. No calf ttp Neuro: Oriented X 3. No motor deficit. No sensory deficit. Const: Other: Last Vital Signs Temp 97.7 F 06/01/20 15:41 Pulse 82 06/01/20 15:41 Resp 18 06/01/20 15:41 BP 156/71 H 06/01/20 15:41 Pulse Ox 98 06/01/20 15:41 Body Mass Index 17.3 Cardio: Other: Last Vital Signs Temp 97.7 F 06/01/20 15:41 Pulse 82 06/01/20 15:41 Resp 18 06/01/20 15:41 BP 156/71 H 06/01/20 15:41 Pulse Ox 98 06/01/20 15:41 Body Mass Index 17.3 Objective Data Current Medications Generic Name Dose Route Start Last Admin Trade Name Freq PRN Reason Stop Dose Admin Acetaminophen 650 mg 06/01/20 04:04 Acetaminophen 325 Mg Tablet PO Q6H PRN Pain, Mild (Pain Scale 1-3) Atorvastatin Calcium 10 mg 06/01/20 09:00 06/02/20 08:20 Atorvastatin Calcium 10 Mg Tablet PO 10 mg DAILY LEIGH Administration Doxazosin Mesylate 1 mg 06/01/20 21:00 06/01/20 20:12 Doxazosin Mesylate 1 Mg Tablet PO 1 mg BEDTIME LEIGH Administration Heparin Sodium (Porcine) 5,000 unit 06/01/20 05:00 06/02/20 05:31 Heparin Sodium,Porcine 5,000 Unit/Ml Vial SUBCUT 5,000 unit Q12H LEIGH Administration Ceftriaxone Sodium 1 gm/ 50 mls @ 100 mls/hr 06/01/20 18:00 06/01/20 18:11 Sodium Chloride IV Infused Q24H LEIGH Infusion Sodium Chloride 1,000 mls @ 75 mls/hr 06/01/20 04:04 06/02/20 08:22 Ns IVCONT 75 mls/hr .[id number] LEIGH Administration Insulin Glargine 12 unit 06/01/20 09:00 06/02/20 10:26 Insulin Glargine,Hum.Rec.Anlog 100 Unit/Ml 10 Ml Vial SUBCUT 12 unit DAILY [facility] Administration Insulin Human Lispro 7 unit 06/01/20 07:30 06/02/20 11:58 Insulin Lispro 100 Unit/Ml 3 Ml Vial SUBCUT 7 unit TIDAC [facility] Administration Insulin Human Lispro 0 unit 06/01/20 04:04 06/02/20 11:59 Insulin Lispro 100 Unit/Ml 3 Ml Vial SUBCUT 2 unit QIDACHS [facility] Administration Protocol Non-Formulary Medication 60 mg 06/01/20 04:04 Denosumab SUBCUT [id number] [facility] Non-Formulary Medication 8.4 gm 06/01/20 09:00 Patiromer Calcium Sorbitex [Veltassa] PO DAILY [facility] Ondansetron HCl 4 mg 06/01/20 04:04 Ondansetron Hcl 4 Mg/2 Ml Vial IVPUSH Q8H PRN Nausea and Vomiting Pharmacy Consult 1 each 05/31/20 15:31 Consult Rx Perform Med Rec MISCELLANE ONCE PRN Consult order Sodium Chloride 3 ml 06/01/20 04:04 06/02/20 08:59 0.9 % Sodium Chloride Flush 3 Ml Syringe IVFLUSH Not Given QSHIFT LEIGH Labs CBC & Chem 7: 06/02/20 09:42 06/02/20 09:42 Microbiology Microbiology Results: Microbiology 05/31/20 18:23 Urine clean catch - Clean Catch Midstream Urine Culture - Final 05/31/20 17:43 Blood - Venous Blood Culture - Preliminary No growth after 24 hours. 05/31/20 17:43 Blood - Venous Blood Culture - Preliminary No growth after 24 hours. Assessment and Plan (1) DELORIS (acute kidney injury): Status: Acute (2) UTI (urinary tract infection): Status: Acute Assessment and Plan: 80-year-old woman admitted with DELORIS on CKD, bilateral hydroureteronephrosis. Hydronephrosis/possible bladder outlet obstruction. Continue Maher catheter Continue terazosin urology consulted recommended continue maher catheter plan to repeat imaging tomorrow UTI. [place]ce[place]in [place] [address] g negative rods DELORIS. Related to hydronephrosis /bladder outlet obstruction. creatinine little improved from 2.8-2.5 continue IV fluids. Avoid nephrotoxins. continue maher catheter Normocytic anemia. No signs of bleeding. Follow CBC daily. Diabetes mellitus. continue Sliding scale, ADA diet, long-acting insulin. DVT prophylaxis with heparin
[2020-06-02 16:00] VITALS: BP 176/75; PULSE 73; RESP 18; TEMP 36.4; O2SAT 97
[2020-06-02 16:37] LABS: Glucose, Whole Blood 88 mg/dL (60-115)
[2020-06-02] MEDS: cefTRIAXone sodium 1 GM in 0.9 % Sodium Chloride 50 ML IV (18:14)
[2020-06-02 19:16] VITALS: BP 122/77; PULSE 77; RESP 18; TEMP 36.8; O2SAT 97
[2020-06-02 20:46] LABS: Glucose, Whole Blood 186 mg/dL (60-115)
[2020-06-02] MEDS: Doxazosin Mesylate 1 MG TABLET PO (20:53)
[2020-06-02 23:15] VITALS: BP 138/84; PULSE 74; RESP 18; TEMP 37.2; O2SAT 95
--- NOTE | 2020-06-03 | US_ITS ---
EXAMINATION: US RETROPERITONEAL LIMITED (RENAL ONLY) CLINICAL INFORMATION: Hydronephrosis followup. COMPARISON: CT of the abdomen without contrast on 05/31/2020 and renal ultrasound on 08/26/2018 TECHNIQUE: Real-time imaging of the kidneys. FINDINGS: RIGHT KIDNEY: 5.1 x 2.1 x 5.1 cm (SAG x AP x TRV). The right kidney is atrophic with increased cortical echogenicity. No echogenic renal calculi or focal lesions are identified. There is mild hydronephrosis, overall decreased in extent when compared to a CT performed on 05/31/2020. LEFT KIDNEY: 4.8 x 3.3 x 4.1 cm (SAG x AP x TRV). There is mild hydronephrosis. There is a 2 mm echogenic focus which demonstrates twinkle artifact on color imaging which could potentially represent a punctate nonobstructing stone within the midpole. A 2.8 cm upper pole cyst is stable from the comparison CT and is anechoic. There is a minimally complex, septated 1.4 x 1.4 x 1.7 cm cyst within the lower pole. This is unchanged in size or character from the comparison ultrasound in 2019. US/US renal BI IMPRESSION: Mild bilateral hydronephrosis. This appears decreased in overall extent when compared to the CT on 05/31/2020. Atrophic right kidney. A simple, anechoic cyst within the upper pole of the left kidney is increased in size from the 2019 ultrasound, however, remains unchanged in character. A minimally complex cyst within the lower pole is unchanged in size and character.
[2020-06-03 02:59] VITALS: BP 128/64; PULSE 88; RESP 18; TEMP 37; O2SAT 98
[2020-06-03] MEDS: Heparin Sodium,Porcine 5,000 UNIT/ML VIAL 5000 UNIT SUBCUT (06:41)
[2020-06-03 07:02] LABS: Glucose, Whole Blood 161 mg/dL (60-115)
--- NOTE | 2020-06-03 07:36 | PC.NURSE ---
P -Patient had 8 beat of Vtach. I- Patient assessed, sleeping , asymptomatic. Dr. Enrique Tim notified. E Sinus Rhythm on telemetry, will continue to monitor.
[2020-06-03 07:41] LABS: Anion Gap 12 (12-20); Blood Urea Nitrogen 53 mg/dL (9-16); Calcium 8.1 mg/dL (8.4-10.2); Carbon Dioxide 20 mmol/L (22-29); Chloride 113 mmol/L (96-108); Creatinine Clr Calc Pharmacy 13.3; Estimated Glomerular Filt Rate 24; Glucose Random 161 mg/dL (60-115); Potassium 4.3 mmol/l (3.3-5.1); Sodium 141 mmol/L (135-145)
[2020-06-03 07:44] VITALS: BP 116/56; PULSE 84; RESP 18; TEMP 36.6; O2SAT 97
[2020-06-03] MEDS: Insulin Glargine,Hum.rec.anlog 100 UNIT/ML 10 ML VIAL 12 UNIT SUBCUT (10:55)
[2020-06-03] MEDS: 0.9 % Sodium Chloride 1,000 ML 75 ML IVCONT (10:55)
[2020-06-03 11:49] VITALS: BP 134/66; PULSE 85; RESP 20; TEMP 36.8; O2SAT 94
[2020-06-03 11:54] LABS: Glucose, Whole Blood 260 mg/dL (60-115)
[2020-06-03] MEDS: Insulin Lispro 100 UNIT/ML 3 ML VIAL SUBCUT (13:26)
[2020-06-03 15:21] VITALS: BP 135/66; PULSE 87; RESP 20; TEMP 37.2; O2SAT 95
--- NOTE | 2020-06-03 15:26 | P.PNIM_ITS ---
Subjective Subjective Date of Service: 06/02/20 Interval History: patient seen and examined at bedside patient reported weakness Review of Systems Constitutional : No Weight loss, No Fever, No Chills ENT/Mouth : No sore throat, No Rhinorrhea Eyes: No Swelling, No Redness Cardiovascular : No Chest Pain, No SOB, NoEdema Respiratory : No Cough, No Sputum, No Wheezing Gastrointestinal : Positive Nausea, noVomiting, no Diarrhea, positive abdominal Pain, No Hematochezia, No Melena Genitourinary : No Dysuria, No Urinary Frequency, No Hematuria, No Urgency Musculoskeletal : No joint pain, No Myalgias, No Joint Swelling Skin : No Skin Lesions, No rash Neuro : pos Weakness, No Numbness, No Dizziness, No Headache Psych : No Anxiety/Panic, No Depression Heme/Lymph: No Bruising, No Lymphadenopathy Endocrine : No Polyuria, No Polydipsia All other systems reviewed and are negative. Physical Exam Vital Signs: Vital Signs: Last Vital Signs Temp 97.7 F 06/01/20 15:41 Pulse 82 06/01/20 15:41 Resp 18 06/01/20 15:41 BP 156/71 H 06/01/20 15:41 Pulse Ox 98 06/01/20 15:41 Body Mass Index 17.3 Appearance: Appears frail and weak. Oriented X3. No acute distress. Eyes: Pupils equal, round and reactive to light. ENT: Pharynx normal. Neck: Normal inspection. Neck supple. CVS: Normal heart rate and rhythm. Pulses normal. Respiratory: No respiratory distress. Breath sounds normal. Abdomen: Soft and mild diffuse ttp - slightly distended Skin: Skin warm and dry. Normal skin color. Normal skin turgor. Extremities: No lower extremity edema. No calf ttp Neuro: Oriented X 3. No motor deficit. No sensory deficit. Const: Other: Last Vital Signs Temp 97.7 F 06/01/20 15:41 Pulse 82 06/01/20 15:41 Resp 18 06/01/20 15:41 BP 156/71 H 06/01/20 15:41 Pulse Ox 98 06/01/20 15:41 Body Mass Index 17.3 Cardio: Other: Last Vital Signs Temp 97.7 F 06/01/20 15:41 Pulse 82 06/01/20 15:41 Resp 18 06/01/20 15:41 BP 156/71 H 06/01/20 15:41 Pulse Ox 98 06/01/20 15:41 Body Mass Index 17.3 Objective Data Current Medications Generic Name Dose Route Start Last Admin Trade Name Pabloq PRN Reason Stop Dose Admin Acetaminophen 650 mg 06/01/20 04:04 Acetaminophen 325 Mg Tablet PO Q6H PRN Pain, Mild (Pain Scale 1-3) Atorvastatin Calcium 10 mg 06/01/20 09:00 06/03/20 11:04 Atorvastatin Calcium 10 Mg Tablet PO Not Given DAILY [facility] Doxazosin Mesylate 1 mg 06/01/20 21:00 06/02/20 20:53 Doxazosin Mesylate 1 Mg Tablet PO 1 mg BEDTIME [facility] Administration Heparin Sodium (Porcine) 5,000 unit 06/01/20 05:00 06/03/20 06:41 Heparin Sodium,Porcine 5,000 Unit/Ml Vial SUBCUT 5,000 unit Q12H [facility] Administration Ceftriaxone Sodium 1 gm/ 50 mls @ 100 mls/hr 06/01/20 18:00 06/02/20 18:45 Sodium Chloride IV Infused Q24H [facility] Infusion Sodium Chloride 1,000 mls @ 75 mls/hr 06/01/20 04:04 06/03/20 10:55 Ns IVCONT 75 mls/hr .[id number] [facility] Administration Insulin Glargine 12 unit 06/01/20 09:00 06/03/20 10:55 Insulin Glargine,Hum.Rec.Anlog 100 Unit/Ml 10 Ml Vial SUBCUT 12 unit DAILY [facility] Administration Insulin Human Lispro 7 unit 06/01/20 07:30 06/03/20 13:27 Insulin Lispro 100 Unit/Ml 3 Ml Vial SUBCUT Not Given TIDAC [facility] Insulin Human Lispro 0 unit 06/01/20 04:04 06/03/20 13:26 Insulin Lispro 100 Unit/Ml 3 Ml Vial SUBCUT 6 unit QIDACHS [facility] Administration Protocol Non-Formulary Medication 8.4 gm 06/01/20 09:00 Patiromer Calcium Sorbitex [Veltassa] PO DAILY [facility] Ondansetron HCl 4 mg 06/01/20 04:04 Ondansetron Hcl 4 Mg/2 Ml Vial IVPUSH Q8H PRN Nausea and Vomiting Pharmacy Consult 1 each 05/31/20 15:31 Consult Rx Perform Med Rec MISCELLANE ONCE PRN Consult order Sodium Chloride 3 ml 06/01/20 04:04 06/03/20 10:55 0.9 % Sodium Chloride Flush 3 Ml Syringe IVFLUSH Not Given QSHIFT [facility] Labs CBC & Chem 7: 06/02/20 09:42 06/03/20 05:31 Microbiology Microbiology Results: Microbiology 05/31/20 17:43 Blood - Venous Blood Culture - Preliminary No growth after 48 hours. 05/31/20 17:43 Blood - Venous Blood Culture - Preliminary No growth after 48 hours. 05/31/20 18:23 Urine clean catch - Clean Catch Midstream Urine Culture - Final Assessment and Plan (1) DELORIS (acute kidney injury): Status: Acute (2) UTI (urinary tract infection): Status: Acute Assessment and Plan: 80-year-old woman admitted with DELORIS on CKD, bilateral hydroureteronephrosis. Hydronephrosis/possible bladder outlet obstruction. Continue Maher catheter Continue terazosin urology consulted recommended continue maher catheter will repeat ultrasound today UTI. [place]Rocephin [place] [address] g negative rods DELORIS. Related to hydronephrosis /bladder outlet obstruction. creatinine little improved from 2.8-2.5 1.98 trending down continue IV fluids. Avoid nephrotoxins. continue maher catheter Normocytic anemia. No signs of bleeding. Follow CBC daily. Diabetes mellitus. continue Sliding scale, ADA diet, long-acting insulin. DVT prophylaxis with heparin
[2020-06-03 16:48] LABS: Glucose, Whole Blood 135 mg/dL (60-115)
[2020-06-03 16:54] LABS: Glucose, Whole Blood 136 mg/dL (60-115)
[2020-06-03] MEDS: cefTRIAXone sodium 1 GM in 0.9 % Sodium Chloride 50 ML IV (18:41)
[2020-06-03 20:00] VITALS: BP 142/60; PULSE 100; RESP 18; TEMP 37.6; O2SAT 98
--- NOTE | 2020-06-03 20:34 | MHC.PIE ---
P: PATIENT HAD EARLIER DENIED PAIN, NOW REPORTS 12/10 ABDOMINAL PAIN, VAGUE DESCRIPTION DUE TO APHASIA. ONLY PAIN MEDICATION IS TYLENOL 1-3 OUT OF 10 PAIN P: PATIENT HAS HAD SOME PINK (BLOOD-TINGED?) DISCHARGE APPARENTLY FROM GENITOURINARY AREA, BUT HAS CONN IN DRAINING CLEAR YELLOW URINE, HAS HEPARIN DUE P: PATIENT WITH VERY POOR PO INTAKE I: ASSESS PATIENT: ALERT, ORIENTED TO PERSON, APHASIA APPARENT, UNABLE TO DESCRIBE NEEDS CLEARLY, ENDORSES 12/10 PAIN TO ABDOMEN, LOWER LEFT SIDE. I: DISCUSS WITH DR. MIRANDA, AND HOLD DOSE OF PROPHYLACTIC HEPARIN. I: REQUEST MEDICATION FOR HIGHER LEVEL OF PAIN, REPOSITION PATIENT I: DISCUSS POOR PO NUTRITION WITH MD. ORDER PROTOCOL NUTRITION CONSULT I: DISCUSS WITH ONCOMING NURSE E: PATIENT REPOSITIONED AND CLEANED. DISCUSSED WITH DR. MIRANDA, NO NEW ORDERS AT THIS TIME, PASSED ALONG TO ONCOMING NURSE. HELD HEPARIN.
[2020-06-03 20:44] LABS: Glucose, Whole Blood 86 mg/dL (60-115)
[2020-06-03] MEDS: Doxazosin Mesylate 1 MG TABLET PO (22:36)
[2020-06-03 23:07] VITALS: BP 134/63; PULSE 83; RESP 18; TEMP 36.6; O2SAT 98
[2020-06-04] MEDS: 0.9 % Sodium Chloride 1,000 ML 75 ML IVCONT (00:29)
[2020-06-04 03:29] VITALS: BP 146/70; PULSE 98; RESP 18; TEMP 36.4; O2SAT 98
[2020-06-04 04:00] VITALS: RESP 18
--- NOTE | 2020-06-04 07:28 | PC.NURSE ---
0500 sc heparin dose held d/t noted some vaginal bleeding on pad. Dr. Enrique Tim made aware. Per , hold future heparin. Next shift made aware.
[2020-06-04 08:00] VITALS: BP 157/74; PULSE 84; RESP 16; TEMP 37.1; O2SAT 94
[2020-06-04 08:07] LABS: Glucose, Whole Blood 115 mg/dL (60-115)
[2020-06-04] MEDS: Insulin Glargine,Hum.rec.anlog 100 UNIT/ML 10 ML VIAL 12 UNIT SUBCUT (08:11)
[2020-06-04] MEDS: Atorvastatin Calcium 10 MG TABLET PO (08:11)
[2020-06-04 09:20] LABS: Basophils Percent Auto 0.4 % (0-2); Eosinophils Percent Auto 0.2 % (0-4); Hematocrit 26.3 % (37-47); Hemoglobin 8.6 g/dl (12.0-16.0); Imm Gran Abs Auto 0.09 X10*3/uL (0.00-0.03); Imm Gran Pct Auto 1.9 % (0.0-0.4); Lymphocytes Absolute Auto 0.9 X10*3/uL (1.2-4.9); Lymphocytes Percent Auto 18.7 % (20-40); MANUAL DIFF FLAG NO; Mean Corpuscular HGB Conc 32.7 g/dl (31.0-35.0); Mean Corpuscular Hemoglobin 30.1 pg (27.0-33.0); Mean Platelet Volume 11.7 fL (9.4-12.3); Monocytes Absolute Auto 0.4 X10*3/uL (0.1-1.2); Monocytes Percent Auto 7.7 % (2-11); Neutrophils Absolute Auto 3.3 X10*3/uL (2.0-8.3); Neutrophils Percent Auto 71.1 % (45-73); Platelet Count 144 X10*3/uL (160-400); Red Blood Count 2.86 X10*6/uL (4.20-5.50); Red Cell Distribution Width 14.3 % (11.0-16.0); White Blood Count 4.7 X10*3/uL (4.8-10.8)
[2020-06-04 09:41] LABS: Anion Gap 15 (12-20); Blood Urea Nitrogen 44 mg/dL (9-16); Calcium 7.7 mg/dL (8.4-10.2); Carbon Dioxide 17 mmol/L (22-29); Chloride 117 mmol/L (96-108); Creatinine Clr Calc Pharmacy 14.2; Estimated Glomerular Filt Rate 26; Glucose Random 168 mg/dL (60-115); Potassium 4.3 mmol/l (3.3-5.1); Sodium 145 mmol/L (135-145)
[2020-06-04 11:38] VITALS: BP 154/72; PULSE 86; RESP 18; TEMP 36.2; O2SAT 97
[2020-06-04 11:51] LABS: Glucose, Whole Blood 162 mg/dL (60-115)
--- NOTE | 2020-06-04 12:28 | MHC.CLN ---
RE:CONSULT PO INTAKE 25% AVG DIET RX: 1800 DM CHOPPED-APPROPRIATE DIET WILL PROMOTE WT GAIN WILL ADD GLUCERNA BID TO INCREASE KCALS NOTED FAUSTINO SCORE 11 AT INCREASED NUTRITION RISK FOLLOWING
--- NOTE | 2020-06-04 13:23 | P.DS_ITS ---
DS: Providers Provider Date of admission: 05/31/20 19:50 Primary care physician: Audra Perez MD Consults: 06/01/20 04:04 Consult to Urology Routine Consulting Provider: Adonis Oconnor Reason for consultation: bilateral hydro, ? obstructive uropathy Has provider been notified: No 06/04/20 08:41 Consult to Urology Routine Consulting Provider: Adonis Oconnor Reason for consultation: follow up on hydronephrosis DS: Diagnosis Discharge Diagnosis (1) DELORIS (acute kidney injury): Status: Acute (2) UTI (urinary tract infection): Status: Acute DS: Medications Discharge Medications Home Medications: Home Medications Medication Instructions Recorded Confirmed atorvastatin 10 mg tablet 10 mg PO DAILY 05/24/20 05/31/20 denosumab 60 mg/mL subcutaneous 60 mg SUBCUT [id number] 05/24/20 05/31/20 syringe Toujeo SoloStar U-300 Insulin 12 unit SUBCUT DAILY 05/31/20 05/31/20 Veltassa 8.4 g PO DAILY 05/31/20 05/31/20 insulin aspart U-100 [Novolog 7 - 10 unit SUBCUT TIDAC 05/31/20 05/31/20 Flexpen U-100 Insulin] Previous Rx's Medication Instructions Recorded cefuroxime axetil 250 mg PO DAILY 7 Days #7 tab 06/04/20 terazosin 2 mg PO BEDTIME #30 cap 06/04/20 DS: Summary Hospital Course Hospital Course: 80-year-old female admitted with Acute on chronic kidney injury, UTI, CT abdomen shows bilateral hydronephrosis, patient was started on IV fluids, Rocephin, patient was seen by Urology recommended maher catheter, creatinine was trending down, [place] [address] g negative rods, repeat ultrasound shows improvement in hydronephrosis, urology recommended no intervention and recommended continue maher catheter and increasing terazosin from 1 mg to 2 mg,trazosin dose was increased to 2 mg, blood cultures were negative, creatinine was back to baseline, patient was stable discharged home with Maher catheter, patient will follow-up urology Dr. Oconnor as outpatient Time Spent with Patient Time attestation: Total time spent providing and/or coordinating discharge services: Physical Exam Vital Signs: Vital Signs: Last Vital Signs Temp 97.2 F 06/04/20 11:38 Pulse 86 06/04/20 11:38 Resp 18 06/04/20 11:38 BP 154/72 H 06/04/20 11:38 Pulse Ox 97 06/04/20 11:38 Body Mass Index 17.3 Appearance: Appears frail and weak. Oriented X3. No acute distress. Eyes: Pupils equal, round and reactive to light. ENT: Pharynx normal. Neck: Normal inspection. Neck supple. CVS: Normal heart rate and rhythm. Pulses normal. Respiratory: No respiratory distress. Breath sounds normal. Abdomen: Soft and mild diffuse ttp - slightly distended Skin: Skin warm and dry. Normal skin color. Normal skin turgor. Extremities: No lower extremity edema. No calf ttp Neuro: Oriented X 3. No motor deficit. No sensory deficit. Const: Other: Last Vital Signs Temp 97.2 F 06/04/20 11:38 Pulse 86 06/04/20 11:38 Resp 18 06/04/20 11:38 BP 154/72 H 06/04/20 11:38 Pulse Ox 97 06/04/20 11:38 Body Mass Index 17.3 Cardio: Other: Last Vital Signs Temp 97.2 F 06/04/20 11:38 Pulse 86 06/04/20 11:38 Resp 18 06/04/20 11:38 BP 154/72 H 06/04/20 11:38 Pulse Ox 97 06/04/20 11:38 Body Mass Index 17.3 DS: Data Data Completed and Pending Labs on day of discharge: 05/31/20 15:31 Consult Rx Perform Med Rec 1 each MISCELLANE ONCE PRN ondansetron HCL [Zofran] 4 mg IVPUSH ONCE ONE 05/31/20 15:32 ECG 12 lead EKG Stat EKG Documentation DIRECTED CT abdomen pelvis wo con Stat 05/31/20 15:45 0.9 % Sodium Chloride [Ns] 500 ml IV 500 mls/hr 05/31/20 16:11 Basic Metabolic Panel Stat COVID-19 ID NOW (Tamayo) Stat Complete Blood Count Auto Diff Stat Hold Lt Blue - Possible Coag Stat Lipase Stat Liver Panel Stat Magnesium Stat 05/31/20 17:04 cefTRIAXone sodium [Rocephin] 1 gm 0.9 % Sodium Chloride [Ns] 50 ml IV ONCE 05/31/20 17:26 Lactic Acid Stat 05/31/20 18:05 cefTRIAXone sodium [Rocephin] 1 gm .ROUTE .K-MED ONE 05/31/20 18:23 Urine Culture Routine 05/31/20 19:38 Transfer Order Routine 06/01/20 04:04 0.9 % Sodium Chloride [Ns] 1,000 ml IVCONT 75 mls/hr 06/01/20 04:04 IV insert/maintain Q4HR Intake and Output QSHIFTE Vital Signs Q4HR 06/01/20 05:03 Flu Vacc [id number](6mos up)/PF [Fluarix Quad [id number]] 0.5 ml IM .ONCE ONE 06/01/20 06:01 Basic Metabolic Panel DAILY@0600 06/01/20 06:08 Complete Blood Count Auto Diff DAILY@0600 06/01/20 07:46 Glucose, Whole Blood Routine 06/01/20 Breakfast Diabetic Diet 06/01/20 11:20 Glucose, Whole Blood Routine 06/01/20 16:09 Glucose, Whole Blood Routine 06/01/20 17:15 cefTRIAXone sodium [Rocephin] 1 gm .ROUTE .STK-MED ONE 06/01/20 20:23 Glucose, Whole Blood Routine 06/02/20 07:25 Glucose, Whole Blood Routine 06/02/20 09:42 Basic Metabolic Panel Routine Complete Blood Count Auto Diff Routine 06/02/20 11:19 Glucose, Whole Blood Routine 06/02/20 16:34 Glucose, Whole Blood Routine 06/02/20 17:42 cefTRIAXone sodium [Rocephin] 1 gm .ROUTE .[facility] ONE 06/02/20 20:40 Glucose, Whole Blood Routine 06/03/20 US renal BI Routine 06/03/20 05:31 Basic Metabolic Panel Routine 06/03/20 06:57 Glucose, Whole Blood Routine 06/03/20 11:50 Glucose, Whole Blood Routine 06/03/20 11:58 Airlo Bed ONCE 06/03/20 16:44 Glucose, Whole Blood Routine 06/03/20 16:50 Glucose, Whole Blood Routine 06/03/20 18:20 cefTRIAXone sodium [Rocephin] 1 gm .ROUTE .STK-MED ONE 06/03/20 20:38 Glucose, Whole Blood Routine 06/04/20 08:02 Glucose, Whole Blood Routine 06/04/20 09:06 Basic Metabolic Panel Routine Complete Blood Count Auto Diff Routine 06/04/20 11:43 Glucose, Whole Blood Routine Laboratory Last Values WBC 4.7 X10*3/uL (4.8-10.8) L 06/04/20 09:06 RBC 2.86 X10*6/uL (4.20-5.50) L 06/04/20 09:06 Hgb 8.6 g/dl (12.0-16.0) L 06/04/20 09:06 Hct 26.3 % (37-47) L 06/04/20 09:06 MCV 92.0 fL (80-98) 06/04/20 09:06 MCH 30.1 pg (27.0-33.0) 06/04/20 09:06 MCHC 32.7 g/dl (31.0-35.0) 06/04/20 09:06 RDW 14.3 % (11.0-16.0) 06/04/20 09:06 Plt Count 144 X10*3/uL (160-400) L 06/04/20 09:06 MPV 11.7 fL (9.4-12.3) 06/04/20 09:06 Immature Gran % (Auto) 1.9 % (0.0-0.4) H 06/04/20 09:06 Neut % (Auto) 71.1 % (45-73) 06/04/20 09:06 Lymph % (Auto) 18.7 % (20-40) L 06/04/20 09:06 [place] % (Auto) 7.7 % (2-11) 06/04/20 09:06 Eos % (Auto) 0.2 % (0-4) 06/04/20 09:06 Baso % (Auto) 0.4 % (0-2) 06/04/20 09:06 Lymph # (Auto) 0.9 X10*3/uL (1.2-4.9) L 06/04/20 09:06 [place] # (Auto) 0.4 X10*3/uL (0.1-1.2) 06/04/20 09:06 Eos # (Auto) 0.0 X10*3/uL (0.0-0.4) 06/04/20 09:06 Baso # (Auto) 0.0 X10*3/uL (0.0-0.2) 06/04/20 09:06 Abs Immat Gran (auto) 0.09 X10*3/uL (0.00-0.03) H 06/04/20 09:06 Absolute Neuts (auto) 3.3 X10*3/uL (2.0-8.3) 06/04/20 09:06 Absolute Nucleated RBC 0.000 X10*3/uL (0.0-0.012) 06/04/20 09:06 Nucleated RBC % (auto) 0.0 /100WBC (0.0-0.2) 06/04/20 09:06 Hold Blue Top SEE NOTE 05/31/20 16:11 Sodium 145 mmol/L (135-145) 06/04/20 09:06 Potassium 4.3 mmol/l (3.3-5.1) 06/04/20 09:06 Chloride 117 mmol/L (96-108) H 06/04/20 09:06 Carbon Dioxide 17 mmol/L (22-29) L 06/04/20 09:06 Anion Gap 15 (12-20) 06/04/20 09:06 BUN 44 mg/dL (9-16) H 06/04/20 09:06 Creatinine 1.87 mg/dL (0.5-1.4) H 06/04/20 09:06 Estim Creat Clear Calc 14.2 06/04/20 09:06 Estimated GFR 26 06/04/20 09:06 POC Glucose 162 mg/dL (60-115) H 06/04/20 11:43 Random Glucose 168 mg/dL (60-115) H 06/04/20 09:06 Lactic Acid 1.4 mmol/L (0.5-2.0) 05/31/20 17:26 Calcium 7.7 mg/dL (8.4-10.2) L 06/04/20 09:06 Magnesium 2.1 mg/dL (1.6-2.6) 05/31/20 16:11 Total Bilirubin 0.4 mg/dL (0.0-1.0) 05/31/20 16:11 Direct Bilirubin < 0.2 mg/dL (0.0-0.5) 05/31/20 16:11 AST 16 U/L (5-31) 05/31/20 16:11 ALT 19 U/L (0-31) 05/31/20 16:11 Alkaline Phosphatase 87 U/L (39-117) 05/31/20 16:11 Total Protein 7.1 g/dL (6.5-8.0) 05/31/20 16:11 Albumin 3.9 g/dL (3.5-5.0) 05/31/20 16:11 Lipase 28 U/L (8-78) 05/31/20 16:11 Urine Color YELLOW 05/31/20 17:51 Urine Appearance CLOUDY 05/31/20 17:51 Urine pH 7.0 (5.0-8.0) 05/31/20 17:51 Ur Specific [place] 1.010 (1.005-1.025) 05/31/20 17:51 Urine Protein 1+ MG/DL (NEG-TRACE) H 05/31/20 17:51 Urine Glucose (UA) NEG MG/DL (NEG) 05/31/20 17:51 Urine Ketones NEG MG/DL (NEG) 05/31/20 17:51 Urine Blood 3+ (NEG) H 05/31/20 17:51 Urine Nitrite NEG (NEG) 05/31/20 17:51 Ur Leukocyte Esterase 3+ (NEG) H 05/31/20 17:51 Urine RBC 76-150 /HPF (0) H 05/31/20 17:51 Urine WBC TNTC /HPF (0-4) H 05/31/20 17:51 Ur Squamous Epith Cells NONE /LPF 05/31/20 17:51 Urine Bacteria 3+ /LPF 05/31/20 17:51 COVID-19 (GIANCARLO) Negative (Negative) 05/31/20 16:11 COVID-19 Clin Com See Note 05/31/20 16:11 Preliminary micro results at discharge 05/31/20 17:43 Blood Culture - Preliminary Blood - Venous No growth after 48 hours. 05/31/20 17:43 Blood Culture - Preliminary Blood - Venous No growth after 48 hours. Discharge Plan Discharge Anticipated Discharge Date/Time: 06/04/20 13:16 Patient Disposition: Home Health Service Referrals: [facility] [Other] (PLEASE RESUME NURSE CM SERVICES ) Audra Perez MD [Primary Care Provider] - Discharge Medications: New cefuroxime axetil 250 mg tablet 250 mg PO DAILY 7 Days Qty: 7 RF: 0 terazosin 2 mg capsule 2 mg PO BEDTIME Qty: 30 RF: 0 Continued insulin aspart U-100 [Novolog Flexpen U-100 Insulin] 100 unit/mL (3 mL) insulin pen 7 - 10 unit subcut TIDAC RF: 0 Veltassa 8.4 gram powder in packet 8.4 g PO DAILY RF: 0 Toujeo SoloStar U-300 Insulin 300 unit/mL (1.5 mL) insulin pen 12 unit subcut DAILY RF: 0 Prolia 60 mg/mL syringe 60 mg subcut [id number] RF: 0 atorvastatin 10 mg tablet 10 mg PO DAILY RF: 0 Discontinued terazosin 1 mg capsule 1 mg PO BEDTIME RF: 0 Discharge Orders: Discharge Order (Routine); Ordered 06/04/20 Ordered By: Brandan Cardoza Diet: advance to usual diet Activity on Discharge: As tolerated Discharge Date/Time: 06/04/20 16:02 Visit Report Forms: Patient Portal Discharge page Care Plan Goals: treat urinary retention Health Concerns: urinary retention Plan of Treatment: maher catheter and increasing terazosin
--- NOTE | 2020-06-04 13:30 | MHC.CM.PN ---
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 CM ATTEMPTED TO CONTACT PTS SISTER, SCOTT ([phone]). CALL WENT TO . A MESSAGE WAS LEFT INFORMING HER OF DC AND REQUESTING A RETURN CALL. PER NOTES, PLAN WAS FOR PTS SISTER TO PROVIDE TRANSPORTATION
--- NOTE | 2020-06-04 14:46 | MHC.CM.PN ---
CM contacted pts sister, Blanca ([phone]) to confirm DC plan. Current DC plan is home with resumption of home care. AVERY notified of DC and will do a post DC assessment within 48 hours and assess for clinical needs. Blanca reports she will transport pt at DC and will be here at approximately 1545 hours.
--- NOTE | 2020-06-04 15:12 | PC.NURSE ---
IV AND TELEPACK REMOVED, PTS SISTER SCOTT LONDON CALLED TO REVIEW DISCHARGE INSTRUCTIONS. PT GOING HOME WITH FABIEN, FAMILY EDUCATED ON FABIEN.
== END 2020-06-04 16:02 | disposition home health service (06) | DRG 690 ==
LOC: HO.ED 17:12 → HO.IMC 06-01 01:36
PROVIDERS: Nurse Practitioner Acute Care; Admitting Provider Internal Medicine; Emergency Provider Emergency Medicine; PCP Family Medicine; Visit Provider Internal Medicine
DX: N13.6 Pyonephrosis (principal); N17.9 Acute kidney failure, unspecified; F79 Unspecified intellectual disabilities; G20 Parkinson's disease; N32.0 Bladder-neck obstruction; D63.1 Anemia in chronic kidney disease; F02.80 Dementia in other diseases classified elsewhere, unspecified severity, without behavioral disturbance, psychotic disturbance, mood disturbance, and anxiety; N18.4 Chronic kidney disease, stage 4 (severe); E11.22 Type 2 diabetes mellitus with diabetic chronic kidney disease; Z20.828 Contact with and (suspected) exposure to other viral communicable diseases; Z79.4 Long term (current) use of insulin; Z79.899 Other long term (current) drug therapy
CPT/HCPCS: 36415; 74176; 76775; 80048; 80053; 80061; 80076; 81001; 82043; 82947; 83036; 83605; 83690; 83721; 83735; 85025; 87040; 87086; 87635; 93005; 96361; 96365; 96375; 99285; J0696; J2405

== ENCOUNTER → 2020-06-15 09:46 | Outpatient (BNVA) | payer MEDICARE, SELFPAY | PROVIDERS: PCP Family Medicine; Visit Provider Urology | DX: R33.9 Retention of urine, unspecified (principal) | CPT/HCPCS: 51700; 99212 ==

== ENCOUNTER 2020-06-16 10:49 | Emergency (ER) | payer MEDICARE, SELFPAY ==
--- NOTE | 2020-06-16 10:53 | ED.GENADULT ---
HPI - General Adult General Chief complaint: General Medical Stated complaint: hypotensive/vidya Time Seen by Provider: 06/16/20 10:52 Source: patient and EMS Mode of arrival: EMS Limitations: language barrier History of Present Illness HPI narrative: Patient with no complaints. Family sent her in for low blood pressure and bradycardia. No CP no SOB complaint: 2 Onset (ago): hour(s) Exacerbating factors: none Associated symptoms: denies other symptoms Related Data Home Medications Medication Instructions Recorded Confirmed atorvastatin 10 mg tablet 10 mg PO DAILY 05/24/20 05/31/20 denosumab 60 mg/mL subcutaneous 60 mg SUBCUT [id number] 05/24/20 05/31/20 syringe Toujeo SoloStar U-300 Insulin 12 unit SUBCUT DAILY 05/31/20 05/31/20 Veltassa 8.4 g PO DAILY 05/31/20 05/31/20 insulin aspart U-100 [Novolog 7 - 10 unit SUBCUT TIDAC 05/31/20 05/31/20 Flexpen U-100 Insulin] Previous Rx's Medication Instructions Recorded cefuroxime axetil 250 mg PO DAILY 7 Days #7 tab 06/04/20 bethanechol chloride 25 mg tablet 25 mg PO BID 30 Days #60 tab 06/15/20 doxazosin 1 mg tablet 0.5 mg PO BEDTIME 30 Days #15 tab 06/15/20 Allergies Allergy/AdvReac Type Severity Reaction Status Date / Time levofloxacin [From LEVAQUIN] Allergy Unknown RASH Verified 06/01/20 10:55 Review of Systems Constitutional: Constitutional: Reports no additional constitutional complaints Eyes: Eyes: Reports no additional eye complaints ENT: Denies dizziness Cardiovascular: Cardiovascular: Reports no additional cardiovascular complaints Respiratory: Respiratory: Reports as per HPI Gastrointestinal: Gastrointestinal: Reports no additional gastrointestinal complaints Genitourinary: Genitourinary: Reports no additional female genitourinary complaints Musculoskeletal: Musculoskeletal: Reports no additional musculoskeletal complaints Integumentary/Breasts: Skin/Breast: Denies rash Neurologic: Reports system reviewed and no additional complaints, except as documented, Denies dizziness and Denies Sensory deficit (Neuro) Psychiatric: Psychiatric: Denies anxiety PMFSH Past Medical History Medical History CKD (chronic kidney disease) stage 4, GFR 15-29 ml/min Dementia Diabetes type 2, uncontrolled Diabetic nephropathy associated with type 2 diabetes mellitus 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 Mother Diabetes Social History Social History Household Members: Family Housing: Apartment Alcohol intake: never Smoking Status: Never smoker Smoked in Last 30 Days: No Use of substances other than those prescribed or required for medical reasons: No Advance Directives: No Advance Directives Information Provided: No service: No Current occupational status: disabled Physical Exam Vital Signs: Vital Signs: Last Vital Signs Temp 97.5 F 06/16/20 11:01 Pulse 53 06/16/20 11:01 Resp 19 06/16/20 11:01 BP 108/34 L 06/16/20 11:01 Pulse Ox 99 06/16/20 11:01 Body Mass Index 16.8 Const: Other: thin elderly female, very small General: healthy appearing Nutritional Appearance: thin Orientation/consciousness: oriented to person and patient oriented x3 Limitations: no limitations HENMT: Head: Yes normal to inspection Ears: external ears normal General nose exam: Normal external nose present Mouth: Normal oral and palatal mucosa present and oropharynx normal Throat: Yes posterior oropharynx normal Eyes: Other: left eye blind with severe cataract Neck: Other: supple Neck: Yes normal visual inspection Chest: Chest palpation & inspection: normal inspection of the chest Resp: Auscultation: clear to auscultation bilaterally Cardio: Jugular venous distension: no JVD Rate: regular rate Rhythm: regular rhythm Heart sounds: S1 normal heart sound present and S2 normal heart sound present GI: Inspection: Yes normal to inspection Palpation (GI): Soft to palpation, nontender and No hepatosplenomegaly present Auscultation: normal bowel sounds : General: Yes no CVA tenderness Back/Spine/Pelvis: Back: no CVA tenderness Skin: General skin exam: no rashes or lesions noted Neuro: General: oriented to person and patient oriented x3 Cranial nerves: Yes CN's II-XII intact bilaterally Motor exam (neuro): 5/5 motor strength present throughout Sensory Exam: No Sensory deficit (Neuro) Extrem: General: Yes normal to inspection Psych: Appearance: grossly normal Course Course Course Narrative: looking well BP 146/65 Medical Decision Making MDM Narrative Medical decision making narrative: patient with slight dehydration, otherwise looks well. Patient with chronic renal failure and chronic anemia Differential Diagnosis Differential Diagnosis: dehydration, cardiac, sepsis, renal failure, anemia Lab Data Result diagrams: 06/16/20 11:41 06/16/20 11:41 Labs: Lab Results 06/16/20 06/16/20 06/16/20 Range/Units 11:41 11:41 11:41 WBC 6.0 (4.8-10.8) X10*3/uL RBC 3.05 L (4.20-5.50) X10*6/uL Hgb 9.3 L (12.0-16.0) g/dl Hct 28.8 L (37-47) % MCV 94.4 (80-98) fL MCH 30.5 (27.0-33.0) pg MCHC 32.3 (31.0-35.0) g/dl RDW 14.5 (11.0-16.0) % Plt Count 180 (160-400) X10*3/uL MPV 11.3 (9.4-12.3) fL Immature Gran % (Auto) 0.3 (0.0-0.4) % Neut % (Auto) 73.3 H (45-73) % Lymph % (Auto) 17.4 L (20-40) % [place] % (Auto) 7.2 (2-11) % Eos % (Auto) 1.3 (0-4) % Baso % (Auto) 0.5 (0-2) % Lymph # (Auto) 1.0 L (1.2-4.9) X10*3/uL [place] # (Auto) 0.4 (0.1-1.2) X10*3/uL Eos # (Auto) 0.1 (0.0-0.4) X10*3/uL Baso # (Auto) 0.0 (0.0-0.2) X10*3/uL Abs Immat Gran (auto) 0.02 (0.00-0.03) X10*3/uL Absolute Neuts (auto) 4.4 (2.0-8.3) X10*3/uL Absolute Nucleated RBC 0.000 (0.0-0.012) X10*3/uL Nucleated RBC % (auto) 0.0 (0.0-0.2) /100WBC Sodium 135 (135-145) mmol/L Potassium 4.7 (3.3-5.1) mmol/l Chloride 109 H (96-108) mmol/L Carbon Dioxide 17 L (22-29) mmol/L Anion Gap 14 (12-20) BUN 70 H D (9-16) mg/dL Creatinine 2.23 H (0.5-1.4) mg/dL Estim Creat Clear Calc 12.3 Estimated GFR 21 Random Glucose 117 H (60-115) mg/dL Calcium 9.5 D (8.4-10.2) mg/dL Troponin I High Sens (<3.5-17.0) ng/L Urine Color YELLOW Urine Appearance HAZY Urine pH 5.5 (5.0-8.0) Ur Specific [place] 1.010 (1.005-1.025) Urine Protein 1+ H (NEG-TRACE) MG/DL Urine Glucose (UA) NEG (NEG) MG/DL Urine Ketones NEG (NEG) MG/DL Urine Blood 2+ H (NEG) Urine Nitrite NEG (NEG) Ur Leukocyte Esterase 1+ H (NEG) Urine RBC 5-9 H (0) /HPF Urine WBC 15-29 H (0-4) /HPF Ur Squamous Epith Cells 1+ /LPF Amorphous Sediment 2+ /LPF Urine Bacteria NONE /LPF Urine Mucus 1+ /LPF 06/16/20 Range/Units 11:59 WBC (4.8-10.8) X10*3/uL RBC (4.20-5.50) X10*6/uL Hgb (12.0-16.0) g/dl Hct (37-47) % MCV (80-98) fL MCH (27.0-33.0) pg MCHC (31.0-35.0) g/dl RDW (11.0-16.0) % Plt Count (160-400) X10*3/uL MPV (9.4-12.3) fL Immature Gran % (Auto) (0.0-0.4) % Neut % (Auto) (45-73) % Lymph % (Auto) (20-40) % [place] % (Auto) (2-11) % Eos % (Auto) (0-4) % Baso % (Auto) (0-2) % Lymph # (Auto) (1.2-4.9) X10*3/uL [place] # (Auto) (0.1-1.2) X10*3/uL Eos # (Auto) (0.0-0.4) X10*3/uL Baso # (Auto) (0.0-0.2) X10*3/uL Abs Immat Gran (auto) (0.00-0.03) X10*3/uL Absolute Neuts (auto) (2.0-8.3) X10*3/uL Absolute Nucleated RBC (0.0-0.012) X10*3/uL Nucleated RBC % (auto) (0.0-0.2) /100WBC Sodium (135-145) mmol/L Potassium (3.3-5.1) mmol/l Chloride (96-108) mmol/L Carbon Dioxide (22-29) mmol/L Anion Gap (12-20) BUN (9-16) mg/dL Creatinine (0.5-1.4) mg/dL Estim Creat Clear Calc Estimated GFR Random Glucose (60-115) mg/dL Calcium (8.4-10.2) mg/dL Troponin I High Sens 11.4 (<3.5-17.0) ng/L Urine Color Urine Appearance Urine pH (5.0-8.0) Ur Specific [place] (1.005-1.025) Urine Protein (NEG-TRACE) MG/DL Urine Glucose (UA) (NEG) MG/DL Urine Ketones (NEG) MG/DL Urine Blood (NEG) Urine Nitrite (NEG) Ur Leukocyte Esterase (NEG) Urine RBC (0) /HPF Urine WBC (0-4) /HPF Ur Squamous Epith Cells /LPF Amorphous Sediment /LPF Urine Bacteria /LPF Urine Mucus /LPF ECG Data Attestation: I personally reviewed and interpreted this ECG as follows: Interpretation: sinus bradycardia rate 58, no st or twave changes Discharge Plan Discharge Clinical Impression: Renal failure, chronic Qualifiers: Chronic kidney disease stage: stage 4 (severe) Qualified Code(s): N18.4 - Chronic kidney disease, stage 4 (severe) Anemia Qualifiers: Anemia type: unspecified type Qualified Code(s): D64.9 - Anemia, unspecified Patient Disposition: Home, Self-Care Instructions: Chronic Kidney Disease (ED), End Stage Kidney Disease (ED) Additional Instructions: increase fluid intake Prescriptions: No Action insulin aspart U-100 [Novolog Flexpen U-100 Insulin] 100 unit/mL (3 mL) insulin pen 7 - 10 unit subcut TIDAC RF: 0 Veltassa 8.4 gram powder in packet 8.4 g PO DAILY RF: 0 Toujeo SoloStar U-300 Insulin 300 unit/mL (1.5 mL) insulin pen 12 unit subcut DAILY RF: 0 cefuroxime axetil 250 mg tablet 250 mg PO DAILY 7 Days Qty: 7 RF: 0 Prolia 60 mg/mL syringe 60 mg subcut [id number] RF: 0 atorvastatin 10 mg tablet 10 mg PO DAILY RF: 0 doxazosin 1 mg tablet 0.5 mg PO BEDTIME 30 Days Qty: 15 RF: 1 bethanechol chloride 25 mg tablet 25 mg PO BID 30 Days Qty: 60 RF: 0 Referrals: Audra Perez MD [Primary Care Provider] - 2 days
[2020-06-16 11:01] VITALS: BP 108/34; PULSE 53; RESP 19; TEMP 36.4; O2SAT 99; BMI 16.8
--- NOTE | 2020-06-16 11:07 | ECG_ITS ---
Test Reason : HYPOTENSIVE Blood Pressure : / mmHG Vent. Rate : 057 BPM Atrial Rate : 057 BPM P-R Int : 216 ms QRS Dur : 082 ms QT Int : 402 ms P-R-T Axes : 089 020 032 degrees QTc Int : 391 ms Sinus bradycardia with 1st degree A-V block Otherwise normal ECG When compared with ECG of 31-MAY-2020 18:22, No significant change was found Referred By: Nathaniel Gordon Electronically Signed By:TL GARLAND MD
[2020-06-16] MEDS: 0.9 % Sodium Chloride 500 ML 999 ML IVCONT (11:22)
--- NOTE | 2020-06-16 11:33 | PC.NURSE ---
Pt presents to the ED from home with reports of low BP and HR. She is alert rr even, speaks in brief sentences, skin is pwdi, and she is in nad. BP upon arrival is higher than originally reported. Dr Gordon in to see pt and provided orders. IV line placed and IVF hung per emar.
[2020-06-16 11:50] LABS: MANUAL DIFF FLAG NO
[2020-06-16 11:56] LABS: Glucose Urine UA NEG (NEG); Leukocyte Esterase Urine 1+ (NEG); Nitrite Urine NEG (NEG); PH 5.5 (5.0-8.0); Urine Blood 2+ (NEG); Urine Ketones NEG (NEG); Urine Protein 1+ MG/DL (NEG-TRACE)
[2020-06-16 11:59] LABS: Appearance Urine HAZY; Color Urine YELLOW
[2020-06-16 12:08] LABS: Basophils Percent Auto 0.5 % (0-2); Eosinophils Absolute Auto 0.1 X10*3/uL (0.0-0.4); Eosinophils Percent Auto 1.3 % (0-4); Hematocrit 28.8 % (37-47); Hemoglobin 9.3 g/dl (12.0-16.0); Imm Gran Abs Auto 0.02 X10*3/uL (0.00-0.03); Imm Gran Pct Auto 0.3 % (0.0-0.4); Lymphocytes Percent Auto 17.4 % (20-40); Mean Corpuscular HGB Conc 32.3 g/dl (31.0-35.0); Mean Corpuscular Hemoglobin 30.5 pg (27.0-33.0); Mean Corpuscular Volume 94.4 fL (80-98); Mean Platelet Volume 11.3 fL (9.4-12.3); Monocytes Absolute Auto 0.4 X10*3/uL (0.1-1.2); Monocytes Percent Auto 7.2 % (2-11); Neutrophils Absolute Auto 4.4 X10*3/uL (2.0-8.3); Neutrophils Percent Auto 73.3 % (45-73); Platelet Count 180 X10*3/uL (160-400); Red Blood Count 3.05 X10*6/uL (4.20-5.50); Red Cell Distribution Width 14.5 % (11.0-16.0)
[2020-06-16 12:09] LABS: Amorphous Sediment Urine 2+ /LPF; Mucus Urine 1+ /LPF; Squamous Epithelial Cell Urine 1+ /LPF
[2020-06-16 12:13] LABS: Anion Gap 14 (12-20); Blood Urea Nitrogen 70 mg/dL (9-16); Calcium 9.5 mg/dL (8.4-10.2); Carbon Dioxide 17 mmol/L (22-29); Chloride 109 mmol/L (96-108); Creatinine Clr Calc Pharmacy 12.3; Estimated Glomerular Filt Rate 21; Glucose Random 117 mg/dL (60-115); Potassium 4.7 mmol/l (3.3-5.1); Sodium 135 mmol/L (135-145)
[2020-06-16 12:59] LABS: Troponin-I High Sensitivity 11.4 ng/L (<3.5-17.0)
[2020-06-16 14:19] VITALS: BP 147/65; PULSE 63; RESP 18; O2SAT 97
== END 2020-06-16 15:05 | disposition home or self-care (01) ==
PROVIDERS: Emergency Provider Emergency Medicine; PCP Family Medicine
DX: I95.9 Hypotension, unspecified (principal); R00.1 Bradycardia, unspecified; D64.9 Anemia, unspecified; E11.22 Type 2 diabetes mellitus with diabetic chronic kidney disease; E11.65 Type 2 diabetes mellitus with hyperglycemia; N18.4 Chronic kidney disease, stage 4 (severe); Z79.899 Other long term (current) drug therapy
CPT/HCPCS: 36415; 80048; 81001; 81003; 84484; 85025; 87086; 87088; 87186; 93005; 99284

== ENCOUNTER 2020-07-21 10:59 | Inpatient (IN) | payer MEDICARE, SELFPAY ==
[2020-07-21] VITALS (7 sets, daily range): BP systolic 127–165; BP diastolic 55–90; PULSE 67–75; RESP 16–21; TEMP 36.3–37; O2SAT 95–99; BMI 17.6
[2020-07-21 11:22] LABS: Glucose, Whole Blood 300 mg/dL (60-115)
--- NOTE | 2020-07-21 11:27 | ECG_ITS ---
Test Reason : NAUSEA Blood Pressure : / mmHG Vent. Rate : 066 BPM Atrial Rate : 066 BPM P-R Int : 178 ms QRS Dur : 072 ms QT Int : 360 ms P-R-T Axes : 062 025 039 degrees QTc Int : 377 ms Normal sinus rhythm Normal ECG When compared with ECG of 16-JUN-2020 11:29, AK interval has decreased Referred By: Emile Lozano Electronically Signed By:Amos Randall
--- NOTE | 2020-07-21 11:27 | XR_ITS ---
EXAMINATION: XR CHEST CLINICAL INFORMATION: Pneumonia COMPARISON: Previous chest x-ray most recent March 2018 TECHNIQUE: Frontal view of the chest was obtained. FINDINGS: The cardiac and mediastinal contours are stable. The lungs are clear without evidence of pneumonia. There is no pleural effusion or pneumothorax. Bony structures are unremarkable. XR/XR chest 1V IMPRESSION: No evidence for acute disease in the chest.
--- NOTE | 2020-07-21 11:49 | ED.GENADULT ---
HPI - General Adult General Chief complaint: Nausea/Vomiting/Diarrhea Stated complaint: vomiting, lethargy Time Seen by Provider: 07/21/20 11:13 Source: patient Mode of arrival: ambulatory Limitations: no limitations History of Present Illness HPI narrative: Patient presents to ED for decreased p.o. intake, vomiting, and lethargic for the past 2 days. Patient at baseline does not speak and has severe dementia. Patient cannot give history on her own. Related Data Home Medications Medication Instructions Recorded Confirmed atorvastatin 10 mg tablet 10 mg PO BEDTIME 05/24/20 07/21/20 denosumab 60 mg/mL subcutaneous 60 mg SUBCUT [id number] 05/24/20 07/21/20 syringe Toujeo SoloStar U-300 Insulin 8 unit SUBCUT DAILY 05/31/20 07/21/20 Veltassa 8.4 g PO DAILY 05/31/20 07/21/20 insulin aspart U-100 [Novolog 7 unit SUBCUT TIDAC 05/31/20 07/21/20 Flexpen U-100 Insulin] ascorbic acid (vitamin C) 500 mg PO BID 07/21/20 07/21/20 bethanechol chloride 25 mg PO BID 07/21/20 07/21/20 ferrous sulfate 325 mg PO BID 07/21/20 07/21/20 ondansetron HCl 4 mg PO TID PRN 07/21/20 07/21/20 Previous Rx's Medication Instructions Recorded doxazosin 1 mg tablet 0.5 mg PO BEDTIME #15 tab 07/22/20 Allergies Allergy/AdvReac Type Severity Reaction Status Date / Time levofloxacin [From LEVAQUIN] Allergy Unknown RASH Verified 06/01/20 10:55 Review of Systems Review of Systems: Yes Unobtainable due to mental status (Does not speak and severe dementia) [facility] Past Medical History Medical History (Updated 07/21/20 @ 20:49 by Sabra Ramírez NP) CKD (chronic kidney disease) stage 4, GFR 15-29 ml/min Dementia Diabetic nephropathy associated with type 2 diabetes mellitus Intellectual disability Osteoporosis Parkinson disease Urinary retention Surgical History (Updated 07/21/20 @ 20:50 by Sabra Ramírez NP) H/O cystoscopy Family History Family History Father No problems noted. Mother Diabetes Social History Social History Household Members: Family Housing: Apartment Alcohol intake: never Smoking Status: Never smoker Advance Directives: No Advance Directives Information Provided: No service: No Current occupational status: disabled Physical Exam Vital Signs: Vital Signs: Last Vital Signs Temp 98.6 F 07/21/20 21:57 Pulse 66 07/22/20 07:09 Resp 14 07/22/20 05:56 BP 157/62 H 07/22/20 07:09 Pulse Ox 98 07/22/20 07:09 Body Mass Index 17.6 Const: General: cooperative, healthy appearing, comfortable, no acute distress, well developed, alert and awake HENMT: Head: Yes normal to inspection and Yes No palpable skull fracture present Eyes: General: appearance normal, both eyes and all related structures Neck: Neck: Yes normal visual inspection, Yes full ROM, Yes no lymphadenopathy, Yes no meningeal signs, Yes trachea midline, Yes supple and No tender Chest: Chest palpation & inspection: normal inspection of the chest Resp: Effort & Inspection: normal respiratory effort and able to speak in complete sentences Auscultation: clear to auscultation bilaterally Cardio: Jugular venous distension: no JVD Heart sounds: S1 normal heart sound present and S2 normal heart sound present GI: Inspection: Yes normal to inspection and No abdominal wall ecchymosis Palpation (GI): Soft to palpation, not firm, nontender, no guarding and not rigid : General: No CVA tenderness and Yes no CVA tenderness Back/Spine/Pelvis: Back: no CVA tenderness, No CVA tenderness and No back tenderness Skin: General skin exam: no rashes or lesions noted Neuro: Other: Patient is bedbound, has severe dementia, and does not speak at baseline. General: no meningeal signs Extrem: General: Yes normal to inspection and Yes full ROM Psych: Appearance: grossly normal, well kempt and not disheveled Course Course Course Narrative: Due to patient not being able to give a history. Patient had basic labs, EKG, troponin, chest x-ray, and urinalysis to see cause of decreasing p.o. intake. Reevaluation(s) Reevaluation #1: Patient initial lab shows acute on chronic kidney failure. Patient given IV fluids will repeat chemistry. Spoke with hospitalist on-call and she recommended do CT scan to make sure there is no obstruction and then call Nephrology if indicated. Nurse spoke with daughter who states patient is at her baseline which is severe dementia and nonverbal. Patient had Márquez placed and had 600 mL in the Márquez bag. Patient will be sent for abdominal CT scan to rule out obstruction. Time: 15:32 Reevaluation #2: Patient started on renal dose Zosyn. Awaiting results of CT scan. Time: 18:00 Reevaluation #3: Dr. Lester, will follow up with case. Recommend given patient more fluids and repeating chemistry. Hospitalist realized that patient has history of chronic urinary tension and was supposed to be placed on intermittent Márquez but family members never brought patient for follow-up. Patient to be admitted to the hospital Time: 18:13 Medical Decision Making MDM Narrative Medical decision making narrative: UTI. Acute on chronic kidney failure Lab Data Result diagrams: 07/22/20 06:00 07/21/20 21:31 Labs: Lab Results 07/21/20 07/21/20 07/21/20 Range/Units 11:16 12:07 12:07 WBC 7.0 (4.8-10.8) X10*3/uL RBC 3.77 L D (4.20-5.50) X10*6/uL Hgb 11.6 L D (12.0-16.0) g/dl Hct 35.0 L D (37-47) % MCV 92.8 (80-98) fL MCH 30.8 (27.0-33.0) pg MCHC 33.1 (31.0-35.0) g/dl RDW 14.6 (11.0-16.0) % Plt Count 240 D (160-400) X10*3/uL MPV 12.2 (9.4-12.3) fL Immature Gran % (Auto) 0.4 (0.0-0.4) % Neut % (Auto) 82.4 H (45-73) % Lymph % (Auto) 11.4 L (20-40) % [place] % (Auto) 5.7 (2-11) % Eos % (Auto) 0.0 (0-4) % Baso % (Auto) 0.1 (0-2) % Lymph # (Auto) 0.8 L (1.2-4.9) X10*3/uL [place] # (Auto) 0.4 (0.1-1.2) X10*3/uL Eos # (Auto) 0.0 (0.0-0.4) X10*3/uL Baso # (Auto) 0.0 (0.0-0.2) X10*3/uL Abs Immat Gran (auto) 0.03 (0.00-0.03) X10*3/uL Absolute Neuts (auto) 5.8 (2.0-8.3) X10*3/uL Absolute Nucleated RBC 0.000 (0.0-0.012) X10*3/uL Nucleated RBC % (auto) 0.0 (0.0-0.2) /100WBC Sodium Cancelled Potassium Cancelled Chloride Cancelled Carbon Dioxide Cancelled Anion Gap Cancelled BUN Cancelled Creatinine Cancelled Estim Creat Clear Calc Cancelled Estimated GFR Cancelled POC Glucose 300 H (60-115) mg/dL Random Glucose Cancelled Lactic Acid (0.5-2.0) mmol/L Calcium Cancelled Total Bilirubin Cancelled Direct Bilirubin Cancelled AST Cancelled ALT Cancelled Alkaline Phosphatase Cancelled Troponin I High Sens Total Protein Cancelled Albumin Cancelled Lipase Cancelled Urine Color Urine Appearance Urine pH (5.0-8.0) Ur Specific [place] (1.005-1.025) Urine Protein (NEG-TRACE) MG/DL Urine Glucose (UA) (NEG) MG/DL Urine Ketones (NEG) MG/DL Urine Blood (NEG) Urine Nitrite (NEG) Ur Leukocyte Esterase (NEG) Urine RBC (0) /HPF Urine WBC (0-4) /HPF Ur Squamous Epith Cells /LPF Urine Bacteria /LPF Coronavirus (PCR) (Negative) Influenza Type A (PCR) (Negative) Influenza Type B (PCR) (Negative) RSV RNA Qual (PCR) (Negative) 07/21/20 07/21/20 07/21/20 Range/Units 12:07 12:07 12:39 WBC (4.8-10.8) X10*3/uL RBC (4.20-5.50) X10*6/uL Hgb (12.0-16.0) g/dl Hct (37-47) % MCV (80-98) fL MCH (27.0-33.0) pg MCHC (31.0-35.0) g/dl RDW (11.0-16.0) % Plt Count (160-400) X10*3/uL MPV (9.4-12.3) fL Immature Gran % (Auto) (0.0-0.4) % Neut % (Auto) (45-73) % Lymph % (Auto) (20-40) % [place] % (Auto) (2-11) % Eos % (Auto) (0-4) % Baso % (Auto) (0-2) % Lymph # (Auto) (1.2-4.9) X10*3/uL [place] # (Auto) (0.1-1.2) X10*3/uL Eos # (Auto) (0.0-0.4) X10*3/uL Baso # (Auto) (0.0-0.2) X10*3/uL Abs Immat Gran (auto) (0.00-0.03) X10*3/uL Absolute Neuts (auto) (2.0-8.3) X10*3/uL Absolute Nucleated RBC (0.0-0.012) X10*3/uL Nucleated RBC % (auto) (0.0-0.2) /100WBC Sodium 144 Potassium 5.2 H Chloride 110 H Carbon Dioxide 16 L Anion Gap 23 H BUN 148 H* D Creatinine 6.23 H* Estim Creat Clear Calc 4.8 Estimated GFR 6 POC Glucose (60-115) mg/dL Random Glucose 326 H D Lactic Acid (0.5-2.0) mmol/L Calcium 9.4 Total Bilirubin 0.4 Direct Bilirubin 0.2 AST 33 H D ALT 31 Alkaline Phosphatase 75 Troponin I High Sens Cancelled Total Protein 7.2 Albumin 4.0 Lipase 51 Urine Color Urine Appearance Urine pH (5.0-8.0) Ur Specific [place] (1.005-1.025) Urine Protein (NEG-TRACE) MG/DL Urine Glucose (UA) (NEG) MG/DL Urine Ketones (NEG) MG/DL Urine Blood (NEG) Urine Nitrite (NEG) Ur Leukocyte Esterase (NEG) Urine RBC (0) /HPF Urine WBC (0-4) /HPF Ur Squamous Epith Cells /LPF Urine Bacteria /LPF Coronavirus (PCR) NEGATIVE (Negative) Influenza Type A (PCR) NEGATIVE (Negative) Influenza Type B (PCR) NEGATIVE (Negative) RSV RNA Qual (PCR) NEGATIVE (Negative) 07/21/20 07/21/20 07/21/20 Range/Units 12:39 14:26 17:38 WBC (4.8-10.8) X10*3/uL RBC (4.20-5.50) X10*6/uL Hgb (12.0-16.0) g/dl Hct (37-47) % MCV (80-98) fL MCH (27.0-33.0) pg MCHC (31.0-35.0) g/dl RDW (11.0-16.0) % Plt Count (160-400) X10*3/uL MPV (9.4-12.3) fL Immature Gran % (Auto) (0.0-0.4) % Neut % (Auto) (45-73) % Lymph % (Auto) (20-40) % [place] % (Auto) (2-11) % Eos % (Auto) (0-4) % Baso % (Auto) (0-2) % Lymph # (Auto) (1.2-4.9) X10*3/uL [place] # (Auto) (0.1-1.2) X10*3/uL Eos # (Auto) (0.0-0.4) X10*3/uL Baso # (Auto) (0.0-0.2) X10*3/uL Abs Immat Gran (auto) (0.00-0.03) X10*3/uL Absolute Neuts (auto) (2.0-8.3) X10*3/uL Absolute Nucleated RBC (0.0-0.012) X10*3/uL Nucleated RBC % (auto) (0.0-0.2) /100WBC Sodium Potassium Chloride Carbon Dioxide Anion Gap BUN Creatinine Estim Creat Clear Calc Estimated GFR POC Glucose (60-115) mg/dL Random Glucose Lactic Acid 0.4 L (0.5-2.0) mmol/L Calcium Total Bilirubin Direct Bilirubin AST ALT Alkaline Phosphatase Troponin I High Sens 29.8 H D Total Protein Albumin Lipase Urine Color YELLOW Urine Appearance CLOUDY Urine pH 6.0 (5.0-8.0) Ur Specific [place] 1.020 (1.005-1.025) Urine Protein 2+ H (NEG-TRACE) MG/DL Urine Glucose (UA) NEG (NEG) MG/DL Urine Ketones NEG (NEG) MG/DL Urine Blood 3+ H (NEG) Urine Nitrite NEG (NEG) Ur Leukocyte Esterase 3+ H (NEG) Urine RBC 50-75 H (0) /HPF Urine WBC 76-150 H (0-4) /HPF Ur Squamous Epith Cells TRACE /LPF Urine Bacteria 3+ /LPF Coronavirus (PCR) (Negative) Influenza Type A (PCR) (Negative) Influenza Type B (PCR) (Negative) RSV RNA Qual (PCR) (Negative) ECG Data Interpretation: Normal sinus rhythm. Normal EKG. Ventricular rate 66. NJ interval 178. QRS 72. QTC 377. Negative STEMI Discharge Plan Discharge Clinical Impression: Acute renal failure, Acute UTI Patient Disposition: Admitted As Inpatient
[2020-07-21 12:15] LABS: MANUAL DIFF FLAG NO
[2020-07-21 12:18] LABS: Basophils Percent Auto 0.1 % (0-2); Hemoglobin 11.6 g/dl (12.0-16.0); Imm Gran Abs Auto 0.03 X10*3/uL (0.00-0.03); Imm Gran Pct Auto 0.4 % (0.0-0.4); Lymphocytes Absolute Auto 0.8 X10*3/uL (1.2-4.9); Lymphocytes Percent Auto 11.4 % (20-40); Mean Corpuscular HGB Conc 33.1 g/dl (31.0-35.0); Mean Corpuscular Hemoglobin 30.8 pg (27.0-33.0); Mean Corpuscular Volume 92.8 fL (80-98); Mean Platelet Volume 12.2 fL (9.4-12.3); Monocytes Absolute Auto 0.4 X10*3/uL (0.1-1.2); Monocytes Percent Auto 5.7 % (2-11); Neutrophils Absolute Auto 5.8 X10*3/uL (2.0-8.3); Neutrophils Percent Auto 82.4 % (45-73); Platelet Count 240 X10*3/uL (160-400); Red Blood Count 3.77 X10*6/uL (4.20-5.50); Red Cell Distribution Width 14.6 % (11.0-16.0)
[2020-07-21] MEDS: 0.9 % Sodium Chloride 1,000 ML 999 ML IV ×2 (12:35→18:11)
--- NOTE | 2020-07-21 12:43 | CT_ITS ---
EXAMINATION: CT HEAD WITHOUT CONTRAST CLINICAL INFORMATION: Lethargy for 2 days. COMPARISON: None TECHNIQUE: Contiguous axial imaging was performed from the skull base to vertex without intravenous administration of contrast. This CT examination was performed using dose optimization techniques as appropriate, variously including the following: *Automated exposure control *Adjustment of mA and/or kV according to patient size (this includes techniques or standardized protocols for targeted exams where dose is matched to indication/reason for exam; i.e. extremities or head) *Use of iterative reconstruction technique DLP: 491 mGy-cm FINDINGS: There is no evidence of acute intracranial hemorrhage or territorial infarction. No abnormal mass effect or midline shift is seen. Gomez to white matter differentiation is well preserved. No extra-axial fluid collections are identified. The lateral ventricles are moderately enlarged and so are the cortical sulci. There is no abnormal attenuation within the brain parenchyma. The osseous structures and soft tissues are normal. There is diffuse mucoperiosteal thickening involving the left sphenoid, ethmoid, maxillary and frontal sinuses. CT/CT head/brain wo con IMPRESSION: No acute intracranial process seen. Age-related mild cerebral volume loss with chronic small vessel ischemic changes in both cerebral hemispheres.
[2020-07-21 12:54] LABS: Influenza A PCR NEGATIVE (Negative); Influenza B PCR NEGATIVE (Negative); Resp Syncy Virus RNA Qual PCR NEGATIVE (Negative); SARS COV2 PCR INHOUSE NEGATIVE (Negative)
[2020-07-21 13:43] LABS: Alanine Aminotransferase 31 U/L (0-31); Alkaline Phosphatase 75 U/L (39-117); Anion Gap 23 (12-20); Aspartate Amino Transferase 33 U/L (5-31); Bilirubin Direct 0.2 mg/dL (0.0-0.5); Bilirubin Total 0.4 mg/dL (0.0-1.0); Calcium 9.4 mg/dL (8.4-10.2); Carbon Dioxide 16 mmol/L (22-29); Chloride 110 mmol/L (96-108); Glucose Random 326 mg/dL (60-115); Lipase 51 U/L (8-78); Potassium 5.2 mmol/l (3.3-5.1); Sodium 144 mmol/L (135-145); Total Protein 7.2 g/dL (6.5-8.0); Troponin-I High Sensitivity 29.8 ng/L (<3.5-17.0)
[2020-07-21 13:51] LABS: Blood Urea Nitrogen 148 mg/dL (9-16); Creatinine Clr Calc Pharmacy 4.8; Estimated Glomerular Filt Rate 6
--- NOTE | 2020-07-21 14:11 | PC.NURSE ---
spoke with pt niece. reports that pt was seen recently for problem with bladder and patient has not been voiding often at home. also reports pt baseline dementia, pt baseline is confused. informed PA of above information. pt having maher placed at this time.
[2020-07-21 14:35] LABS: Glucose Urine UA NEG (NEG); Leukocyte Esterase Urine 3+ (NEG); Nitrite Urine NEG (NEG); Urine Blood 3+ (NEG); Urine Ketones NEG (NEG); Urine Protein 2+ MG/DL (NEG-TRACE)
[2020-07-21 14:36] LABS: Appearance Urine CLOUDY; Color Urine YELLOW
[2020-07-21 14:46] LABS: Bacteria Urine 3+ /LPF; RBC Urine 50-75 /HPF (0); Squamous Epithelial Cell Urine TRACE /LPF
--- NOTE | 2020-07-21 15:25 | CT_ITS ---
EXAMINATION: CT ABDOMEN AND PELVIS WITHOUT CONTRAST CLINICAL INFORMATION: Hydronephrosis, kidney obstruction?, Kidney stones? COMPARISON: CT abdomen and pelvis 05/31/2020, renal ultrasound 06/03/2020. TECHNIQUE: Multidetector volumetric imaging was performed from the superior aspect of the liver through the pubic symphysis. Sagittal and coronal reformatted images were obtained on the technologist's workstation. This CT examination was performed using dose optimization techniques as appropriate, variously including the following: *Automated exposure control *Adjustment of mA and/or kV according to patient size (this includes techniques or standardized protocols for targeted exams where dose is matched to indication/reason for exam; i.e. extremities or head) *Use of iterative reconstruction technique DLP: 491 mGy-cm FINDINGS: LUNG BASES: The heart is enlarged and bibasilar atelectasis is present. Extremely dense breasts are once again seen. I suspect that the patient is anemic as the intracardiac blood is of decreased attenuation compared to the myometrium. LIVER, GALLBLADDER, AND BILIARY TREE: The liver is normal in size, shape, and attenuation. No focal hepatic lesion or biliary ductal dilatation is present. The gallbladder is unremarkable with no evidence of radiopaque gallstones, gallbladder wall thickening, or obvious pericholecystic inflammatory changes. PANCREAS: Unremarkable. SPLEEN: Unremarkable. ADRENAL GLANDS: Unremarkable. KIDNEYS AND URETERS: Again seen is a small atrophic right kidney which contains cysts. The left kidney also contains cysts. Bilateral hydronephrosis previously seen with bilaterally dilated ureters has significantly improved since the prior study when a Márquez catheter was not present. BLADDER: A Márquez catheter is present in the bladder with a thickened 0.9 cm trabeculated wall. GASTROINTESTINAL TRACT: The small and large bowel are unremarkable. The appendix is unremarkable. ABDOMINAL WALL: No significant hernia is appreciated. LYMPH NODES: No retroperitoneal lymphadenopathy. Calcific aortoiliac calcifications are present. No aneurysm seen. VASCULAR: Unremarkable. PELVIC VISCERA: Status post hysterectomy. An abnormal adnexal mass or free intraperitoneal fluid is not seen. OSSEOUS STRUCTURES: Unremarkable. CT/CT abdomen pelvis wo con IMPRESSION: 1. Resolved hydronephrosis status post Márquez catheter presumably secondary to bladder outlet obstruction. The right kidney remains atrophic. No renal stones are present. Bilateral renal cysts are present. 2. Thick-walled trabeculated bladder. 3. Cardiomegaly and anemia.
[2020-07-21] MEDS: 0.9 % Sodium Chloride 500 ML IV (15:53)
[2020-07-21] MEDS: Piperacillin Sodium/Tazobactam 2.25 GM in 0.9 % Sodium Chloride 50 ML IV (17:49)
--- NOTE | 2020-07-21 17:53 | PC.NURSE ---
Márquez draining red tinged urine, dark, some small clots noted in catheter tubing, PA shown. waiting CT results.
[2020-07-21 18:10] LABS: Lactic Acid 0.4 mmol/L (0.5-2.0)
--- NOTE | 2020-07-21 18:11 | PM.EVENT ---
Event Note Date of Service: 07/21/20 Event Note: Patient seen and examined independently and was present during nunn portion of E/M service. Agree with midlevel's history, physical, assessment, and plan. 80F presented with lethargy found to have DELORIS on CKD deloris on ckd IV likely obstgructive and prerenal maher, nephro, monitor, ivf hematuria monitor cbc, continue maher, flush if needed uti ceftriaxone, follow up cultures
--- NOTE | 2020-07-21 20:39 | PM.IMHP ---
History of Present Illness Date of Service: 07/21/20 <Sabra Ramírez NP - Last Filed: 07/21/20 20:54> Chief Complaint: Failure to thrive <Sabra Ramírez NP - Last Filed: 07/21/20 20:54> 80 year old women presenting with poor appetite, nausea, vomiting and lethargy. She is nonverbal at baseline secondary to dementia . She has a long history of UTI and hematuria in the past. She has a history diabetic cyst opacity and does intermittent catheterizations at home. Initial lab showed potassium 5.2, bicarb 16, anion gap 23, BUN 148, creatinine 6.23 with history of chronic kidney disease. Blood sugar was 326 with history of brittle diabetes. Urinalysis appeared to be positive. Negative COVID. Abdominal and pelvic CT showed resolved hydronephrosis status post Maher catheter presumably secondary to bladder outlet obstruction. She was given 3 L of IV fluids and Zosyn ER. She will be admitted for further management and treatment of bladder outlet obstruction, UTI. <Sabra Ramírez NP - Last Filed: 07/21/20 20:54> Review of Systems Review of Systems: Yes Unobtainable due to mental status <Sabra Ramírez NP - Last Filed: 07/21/20 20:54> [facility] Medical History: Medical History CKD (chronic kidney disease) stage 4, GFR 15-29 ml/min Dementia Diabetic nephropathy associated with type 2 diabetes mellitus Intellectual disability Osteoporosis Parkinson disease Urinary retention <Sabra Ramírez NP - Last Filed: 07/21/20 20:54> Family History: Family History Father No problems noted. Mother Diabetes <Sabra Ramírez NP - Last Filed: 07/21/20 20:54> Surgical History: Surgical History H/O cystoscopy <Sabra Ramírez NP - Last Filed: 07/21/20 20:54> Social History: Social History Household Members: Unknown / Unable to assess Housing: Unknown / Unable to assess Alcohol intake: never Smoking Status: Unknown if ever smoked service: No Current occupational status: disabled <Sabra Ramírez NP - Last Filed: 07/21/20 20:54> Meds Allergies/Adverse reactions: Allergies Allergy/AdvReac Type Severity Reaction Status Date / Time levofloxacin [From LEVAQUIN] Allergy Unknown RASH Verified 06/01/20 10:55 <Sabra Ramírez NP - Last Filed: 07/21/20 20:54> Physical Exam Vital Signs and Narrative: Vital Signs: Last Vital Signs Temp 97.8 F 07/21/20 17:46 Pulse 74 07/21/20 20:00 Resp 16 07/21/20 20:00 BP 152/61 H 07/21/20 20:00 Pulse Ox 97 07/21/20 20:00 Body Mass Index 17.6 <Sabra Ramírez NP - Last Filed: 07/21/20 20:54> very frail and thin appearing head is normocephalic atraumatic eyes pupils are PERRLA sclera is anicteric mouth throat mucous membranes are intact and dry lung sounds are clear/Diminished heart regular rate rhythm positive bowel sounds, abdomen is soft, nontender neuro eyes closed only responding within no answer to every question unable to assess for focal deficits <Sabra Ramírez NP - Last Filed: 07/21/20 20:54> Results Labs CBC and Chem 7: : 07/26/20 05:30 07/26/20 05:30 <Sabra Ramírez NP - Last Filed: 07/21/20 20:54> Labs: Laboratory Results - last 24 hr 07/21/20 07/21/20 07/21/20 11:16 12:07 12:07 MCV 92.8 MCH 30.8 MCHC 33.1 RDW 14.6 Plt Count 240 D MPV 12.2 Immature Gran % (Auto) 0.4 Neut % (Auto) 82.4 H Lymph % (Auto) 11.4 L [place] % (Auto) 5.7 Eos % (Auto) 0.0 Baso % (Auto) 0.1 Lymph # (Auto) 0.8 L [place] # (Auto) 0.4 Eos # (Auto) 0.0 Baso # (Auto) 0.0 Abs Immat Gran (auto) 0.03 Absolute Neuts (auto) 5.8 Absolute Nucleated RBC 0.000 Nucleated RBC % (auto) 0.0 Sodium Anion Gap Cancelled Estim Creat Clear Calc Cancelled Estimated GFR Cancelled POC Glucose 300 H Random Glucose Cancelled Lactic Acid Calcium Cancelled Total Bilirubin Cancelled Direct Bilirubin Cancelled AST Cancelled ALT Cancelled Alkaline Phosphatase Cancelled Troponin I High Sens Total Protein Cancelled Albumin Cancelled Lipase Cancelled Urine Color Urine Appearance Urine pH Ur Specific [place] Urine Protein Urine Glucose (UA) Urine Ketones Urine Blood Urine Nitrite Ur Leukocyte Esterase Urine RBC Urine WBC Ur Squamous Epith Cells Urine Bacteria Coronavirus (PCR) Influenza Type A (PCR) Influenza Type B (PCR) RSV RNA Qual (PCR) 07/21/20 07/21/20 07/21/20 12:07 12:07 12:39 MCV MCH MCHC RDW Plt Count MPV Immature Gran % (Auto) Neut % (Auto) Lymph % (Auto) [place] % (Auto) Eos % (Auto) Baso % (Auto) Lymph # (Auto) Ross # (Auto) Eos # (Auto) Baso # (Auto) Abs Immat Gran (auto) Absolute Neuts (auto) Absolute Nucleated RBC Nucleated RBC % (auto) Sodium 144 Anion Gap 23 H Estim Creat Clear Calc 4.8 Estimated GFR 6 POC Glucose Random Glucose 326 H D Lactic Acid Calcium 9.4 Total Bilirubin 0.4 Direct Bilirubin 0.2 AST 33 H D ALT 31 Alkaline Phosphatase 75 Troponin I High Sens Cancelled Total Protein 7.2 Albumin 4.0 Lipase 51 Urine Color Urine Appearance Urine pH Ur Specific [place] Urine Protein Urine Glucose (UA) Urine Ketones Urine Blood Urine Nitrite Ur Leukocyte Esterase Urine RBC Urine WBC Ur Squamous Epith Cells Urine Bacteria Coronavirus (PCR) NEGATIVE Influenza Type A (PCR) NEGATIVE Influenza Type B (PCR) NEGATIVE RSV RNA Qual (PCR) NEGATIVE 07/21/20 07/21/20 07/21/20 12:39 14:26 17:38 MCV MCH MCHC RDW Plt Count MPV Immature Gran % (Auto) Neut % (Auto) Lymph % (Auto) Ross % (Auto) Eos % (Auto) Baso % (Auto) Lymph # (Auto) Ross # (Auto) Eos # (Auto) Baso # (Auto) Abs Immat Gran (auto) Absolute Neuts (auto) Absolute Nucleated RBC Nucleated RBC % (auto) Sodium Anion Gap Estim Creat Clear Calc Estimated GFR POC Glucose Random Glucose Lactic Acid 0.4 L Calcium Total Bilirubin Direct Bilirubin AST ALT Alkaline Phosphatase Troponin I High Sens 29.8 H D Total Protein Albumin Lipase Urine Color YELLOW Urine Appearance CLOUDY Urine pH 6.0 Ur Specific [place] 1.020 Urine Protein 2+ H Urine Glucose (UA) NEG Urine Ketones NEG Urine Blood 3+ H Urine Nitrite NEG Ur Leukocyte Esterase 3+ H Urine RBC 50-75 H Urine WBC 76-150 H Ur Squamous Epith Cells TRACE Urine Bacteria 3+ Coronavirus (PCR) Influenza Type A (PCR) Influenza Type B (PCR) RSV RNA Qual (PCR) <Sabra Ramírez NP - Last Filed: 07/21/20 20:54> Imaging Radiologist's Impressions: Impressions Chest X-Ray 07/21/20 11:27 IMPRESSION: No evidence for acute disease in the chest. Head CT 07/21/20 12:43 IMPRESSION: No acute intracranial process seen. Age-related mild cerebral volume loss with chronic small vessel ischemic changes in both cerebral hemispheres. Abdomen/Pelvis CT 07/21/20 15:25 IMPRESSION: 1. Resolved hydronephrosis status post Maher catheter presumably secondary to bladder outlet obstruction. The right kidney remains atrophic. No renal stones are present. Bilateral renal cysts are present. 2. Thick-walled trabeculated bladder. 3. Cardiomegaly and anemia. <Sabra Ramírez NP - Last Filed: 07/21/20 20:54> Assessment and Plan (1) Acute renal failure: Problem details: Pt presented with prerenal and post renal DELORIS superimposed on advanced CKD with bilateral renal atrophy and bladder outflow problems with hydro improved with maher cath placement; UTI enterococcal as well <Sabra Ramírez NP - Last Filed: 07/21/20 20:54> Status: Acute <Sabra Ramírez NP - Last Filed: 07/21/20 20:54> (2) Acute UTI: Problem details: He has urinary infection He has sensitivity to Ampicillin-continue <Sabra Ramírez NP - Last Filed: 07/21/20 20:54> Status: Acute <Sabra Ramírez NP - Last Filed: 07/21/20 20:54> 72-year-old woman admitted with bladder outlet obstruction and UTI. Patient has history of hydronephrosis and hematuria. She does intermittent catheterizations at home. Hydronephrosis with obstruction. Resolved after Maher catheter. Still has some hematuria and clots. At some point may necessitate CBI but for now Maher catheter is draining. UTI. Last culture showed Enterococcus faecalis bacteria, we will treat with Zosyn. DELORIS on CKD. Related to hydronephrosis, will follow BMP IV fluids, nephrology consultation. Anemia. Chronic. Hematuria, follow CBC. Diabetes mellitus. Brittle diabetes. Sliding scale, ADA diet, continue insulin. Hyperlipidemia. Continue statin. DVT prophylaxis with mechanical compression boots due to hematuria Case discussed with Dr. Gann Full code <Sabra Ramírez NP - Last Filed: 07/21/20 20:54>
[2020-07-21 21:16] LABS: Troponin-I High Sensitivity 33.2 ng/L (<3.5-17.0)
[2020-07-21 22:12] LABS: Alanine Aminotransferase 25 U/L (0-31); Albumin Level 3.2 g/dL (3.5-5.0); Alkaline Phosphatase 61 U/L (39-117); Anion Gap 19 (12-20); Aspartate Amino Transferase 32 U/L (5-31); Bilirubin Total 0.2 mg/dL (0.0-1.0); Calcium 7.5 mg/dL (8.4-10.2); Carbon Dioxide 11 mmol/L (22-29); Chloride 123 mmol/L (96-108); Creatinine Clr Calc Pharmacy 5.6; Estimated Glomerular Filt Rate 8; Glucose Random 98 mg/dL (60-115); Potassium 4.7 mmol/l (3.3-5.1); Sodium 148 mmol/L (135-145); Total Protein 5.9 g/dL (6.5-8.0)
[2020-07-21 22:25] LABS: Blood Urea Nitrogen 126 mg/dL (9-16)
[2020-07-22] VITALS (9 sets, daily range): BP systolic 117–185; BP diastolic 62–82; PULSE 60–92; RESP 14–29; TEMP 36.3–37.1; O2SAT 95–100; BMI 17.6
[2020-07-22 06:27] LABS: MANUAL DIFF FLAG NO
[2020-07-22 06:30] LABS: Basophils Percent Auto 0.3 % (0-2); Hematocrit 34.2 % (37-47); Hemoglobin 10.9 g/dl (12.0-16.0); Imm Gran Abs Auto 0.22 X10*3/uL (0.00-0.03); Imm Gran Pct Auto 2.8 % (0.0-0.4); Lymphocytes Percent Auto 13.4 % (20-40); Mean Corpuscular HGB Conc 31.9 g/dl (31.0-35.0); Mean Corpuscular Hemoglobin 30.3 pg (27.0-33.0); Mean Platelet Volume 11.4 fL (9.4-12.3); Monocytes Absolute Auto 0.4 X10*3/uL (0.1-1.2); Monocytes Percent Auto 5.4 % (2-11); Neutrophils Absolute Auto 6.1 X10*3/uL (2.0-8.3); Neutrophils Percent Auto 78.1 % (45-73); Platelet Count 190 X10*3/uL (160-400); Red Cell Distribution Width 14.9 % (11.0-16.0); White Blood Count 7.8 X10*3/uL (4.8-10.8)
--- NOTE | 2020-07-22 07:11 | PC.NURSE ---
sr on monitor w frequent pvcs, warm blnket provided, eyes open, confused,
[2020-07-22] MEDS: 0.9 % Sodium Chloride Flush 3 ML SYRINGE IVFLUSH (10:34)
[2020-07-22] MEDS: Ascorbic Acid 500 MG TABLET PO (10:34)
[2020-07-22] MEDS: Doxazosin Mesylate 1 MG TABLET 0.5 MG PO ×2 (11:00→20:55)
[2020-07-22 11:02] LABS: Alanine Aminotransferase 27 U/L (0-31); Albumin Level 3.5 g/dL (3.5-5.0); Alkaline Phosphatase 65 U/L (39-117); Aspartate Amino Transferase 33 U/L (5-31); Bilirubin Total 0.2 mg/dL (0.0-1.0); Glucose Random 120 mg/dL (60-115); Total Protein 6.5 g/dL (6.5-8.0)
[2020-07-22 11:07] LABS: Glucose, Whole Blood 140 mg/dL (60-115)
--- NOTE | 2020-07-22 11:26 | P.CONNP_ITS ---
History of Present Illness Reason for Consult Consult date: 07/22/20 Reason for consult: DELORIS Chief Complaint Chief complaint: UTI, DELORIS on CKD History of Present Illness Narrative: 80 year old women presenting with poor appetite, nausea, vomiting and lethargy. She is nonverbal at baseline secondary to dementia . She has a long history of UTI and hematuria in the past. She does intermittent catheterizations at home. Initial lab showed potassium 5.2, bicarb 16, anion gap 23, BUN 148, creatinine 6.23 . She has history of chronic kidney disease with one atrophic kidney. Negative COVID. Abdominal and pelvic CT showed resolved hydronephrosis status post Márquez catheter presumably secondary to bladder outlet obstruction. She will be admitted for further management . Nephrology has been consulted to assist in her clinical care Review of Systems Review of Systems Yes Unobtainable due to mental condition PMFSH Past Medical History Medical History CKD (chronic kidney disease) stage 4, GFR 15-29 ml/min Dementia Diabetic nephropathy associated with type 2 diabetes mellitus Intellectual disability Osteoporosis Parkinson disease Urinary retention Family History Family History Father No problems noted. Mother Diabetes Surgical History Surgical History H/O cystoscopy Social History Social History Household Members: Unknown / Unable to assess Housing: Unknown / Unable to assess Alcohol intake: never Smoking Status: Unknown if ever smoked Use of substances other than those prescribed or required for medical reasons: Unknown Advance Directives: No Advance Directives Information Provided: No service: No Current occupational status: disabled Meds Allergies Allergy/AdvReac Type Severity Reaction Status Date / Time levofloxacin [From LEVAQUIN] Allergy Unknown RASH Verified 06/01/20 10:55 Home Medications Medication Instructions Recorded Confirmed Type atorvastatin 10 mg tablet 10 mg PO BEDTIME 05/24/20 07/21/20 History denosumab 60 mg/mL subcutaneous 60 mg SUBCUT [id number] 05/24/20 07/21/20 History syringe Toujeo SoloStar U-300 Insulin 8 unit SUBCUT DAILY 05/31/20 07/21/20 History Veltassa 8.4 g PO DAILY 05/31/20 07/21/20 History insulin aspart U-100 [Novolog 7 unit SUBCUT TIDAC 05/31/20 07/21/20 History Flexpen U-100 Insulin] ascorbic acid (vitamin C) 500 mg PO BID 07/21/20 07/21/20 History bethanechol chloride 25 mg PO BID 07/21/20 07/21/20 History ferrous sulfate 325 mg PO BID 07/21/20 07/21/20 History ondansetron HCl 4 mg PO TID PRN 07/21/20 07/21/20 History Physical Exam Vital Signs: Last Vital Signs Temp 97.9 F 07/22/20 11:11 Pulse 68 07/22/20 11:11 Resp 18 07/22/20 11:11 BP 166/82 H 07/22/20 11:11 Pulse Ox 96 07/22/20 11:11 Body Mass Index 17.6 Const General: comfortable Neck Neck: Yes supple Resp Auscultation: diminished lung sounds Cardio Rate: regular rate GI Palpation (GI): Soft to palpation Neuro General: moves all extremities Results Lab Results Result Diagrams: 07/22/20 06:00 07/22/20 06:00 Lab results: Chemistry 07/21/20 07/21/20 07/21/20 12:07 12:39 19:59 Sodium Cancelled 144 Cancelled Potassium Cancelled 5.2 H Cancelled Carbon Dioxide Cancelled 16 L Cancelled BUN Cancelled 148 H* D Cancelled Creatinine Cancelled 6.23 H* Cancelled Calcium Cancelled 9.4 Cancelled 07/21/20 21:31 Sodium 148 H Potassium 4.7 Carbon Dioxide 11 L BUN 126 H* Creatinine 5.27 H* Calcium 7.5 L D Hematology 07/21/20 07/22/20 12:07 06:00 WBC 7.0 7.8 Hgb 11.6 L D 10.9 L Plt Count 240 D 190 Urinalysis 07/21/20 14:26 Urine Color YELLOW Urine Appearance CLOUDY Urine pH 6.0 Ur Specific [place] 1.020 Urine Protein 2+ H Urine Glucose (UA) NEG Urine Ketones NEG Urine Blood 3+ H Urine Nitrite NEG Ur Leukocyte Esterase 3+ H Urine RBC 50-75 H Urine WBC 76-150 H Ur Squamous Epith Cells TRACE Assessment and Plan (1) Acute renal failure: Problem details: DELORIS due to compromised renal perfusion Has CKD 4 at baseline; No hydro by imaging One kidney atrophic; Discontinue Vitamin C Start IV fluids; No indication for renal replacement Labs AM; All medication should be dosed for GFR Shall follow along Status: Acute
[2020-07-22 11:28] LABS: Anion Gap 21 (12-20); Blood Urea Nitrogen 121 mg/dL (9-16); Calcium 8.1 mg/dL (8.4-10.2); Carbon Dioxide 13 mmol/L (22-29); Chloride 122 mmol/L (96-108); Potassium 4.5 mmol/l (3.3-5.1); Sodium 151 mmol/L (135-145)
[2020-07-22 11:41] LABS: Creatinine Clr Calc Pharmacy 5.7; Estimated Glomerular Filt Rate 8
--- NOTE | 2020-07-22 12:34 | MHC.CLN ---
PT IS MILDLY MALNOURISHED, ALTHOUGH GAINED WT SINCE LAST ADMISSION REMAINS UNDER WEIGHT-WILL ADD GLUCERNA BID TO INCREASE KCALS MONITOR PO INTAKES AND WEIGHT CLOSELY SEE ALSO CLINICAL NUTRITION ASSESSMENT
--- NOTE | 2020-07-22 13:12 | HO.PM.IMPN ---
Subjective Subjective Date of Service: 07/22/20 Interval History: patient seen and examined at bedside patient remains confused Physical Exam Vital Signs: Vital Signs: Last Vital Signs Temp 97.9 F 07/22/20 11:11 Pulse 68 07/22/20 11:11 Resp 18 07/22/20 11:11 BP 166/82 H 07/22/20 11:11 Pulse Ox 96 07/22/20 11:11 Body Mass Index 17.6 Const: General: cooperative, healthy appearing, comfortable, no acute distress, well developed, alert and awake HENMT: Head: Yes normal to inspection and Yes No palpable skull fracture present Eyes: General: appearance normal, both eyes and all related structures Neck: Neck: Yes normal visual inspection, Yes full ROM, Yes no lymphadenopathy, Yes no meningeal signs, Yes trachea midline, Yes supple and No tender Chest: Chest palpation & inspection: normal inspection of the chest Resp: Effort & Inspection: normal respiratory effort and able to speak in complete sentences Auscultation: clear to auscultation bilaterally and diminished lung sounds Cardio: Jugular venous distension: no JVD Rate: regular rate Heart sounds: S1 normal heart sound present and S2 normal heart sound present GI: Inspection: Yes normal to inspection and No abdominal wall ecchymosis Palpation (GI): Soft to palpation, not firm, nontender, no guarding and not rigid : General: No CVA tenderness and Yes no CVA tenderness Back/Spine/Pelvis: Back: no CVA tenderness, No CVA tenderness and No back tenderness Skin: General skin exam: no rashes or lesions noted Neuro: Other: Patient is bedbound, has severe dementia, and does not speak at baseline. General: moves all extremities and no meningeal signs Extrem: General: Yes normal to inspection and Yes full ROM Psych: Appearance: grossly normal, well kempt and not disheveled Objective Data Current Medications Generic Name Dose Route Start Last Admin Trade Name Freq PRN Reason Stop Dose Admin Acetaminophen 650 mg 07/22/20 09:17 Acetaminophen 325 Mg Tablet PO Q6H PRN Pain, Mild (Pain Scale 1-3) Atorvastatin Calcium 10 mg 07/22/20 09:17 07/22/20 10:39 Atorvastatin Calcium 10 Mg Tablet PO Not Given BEDTIME LEIGH Bethanechol Chloride 25 mg 07/22/20 21:00 Bethanechol Chloride 25 Mg Tablet PO BID LEIGH Doxazosin Mesylate 0.5 mg 07/22/20 09:17 07/22/20 11:00 Doxazosin Mesylate 1 Mg Tablet PO 0.5 mg BEDTIME [facility] Administration Protocol Ferrous Sulfate 324 mg 07/22/20 21:00 Ferrous Sulfate 324 Mg Tablet.Dr PO BID [facility] Insulin Glargine 5 unit 07/23/20 09:00 Insulin Glargine,Hum.Rec.Anlog 100 Unit/Ml 10 Ml Vial SUBCUT DAILY [facility] Insulin Human Lispro 7 unit 07/22/20 11:30 07/22/20 11:06 Insulin Lispro 100 Unit/Ml 3 Ml Vial SUBCUT Not Given TIDAC [facility] Non-Formulary Medication 8.4 gm 07/22/20 09:17 Patiromer Calcium Sorbitex [Veltassa] PO DAILY [facility] Ondansetron HCl 4 mg 07/22/20 09:17 Ondansetron Hcl 4 Mg/2 Ml Vial IVPUSH Q8H PRN Nausea and Vomiting Pharmacy Consult 1 each 07/21/20 18:26 Consult Rx Perform Med Rec MISCELLANE ONCE PRN Consult order Sodium Chloride 3 ml 07/22/20 09:17 07/22/20 10:34 0.9 % Sodium Chloride Flush 3 Ml Syringe IVFLUSH 3 ml QSHIFT [facility] Administration Labs CBC & Chem 7: 07/22/20 06:00 07/22/20 06:00 Microbiology Microbiology Results: Microbiology 07/21/20 15:14 Urine Catheterized - Straight Catheter Urine Culture - Preliminary Enterococcus/Streptococcus sp Assessment and Plan (1) Acute renal failure: Status: Acute (2) Urinary retention with incomplete bladder emptying: Status: Acute (3) Acute UTI: Status: Acute Assessment and Plan: 72-year-old woman admitted with bladder outlet obstruction and UTI. Patient has history of hydronephrosis and hematuria. She does intermittent catheterizations at home. DELORIS on ckd likely multifactorial dehydration ATN Hydronephrosis with obstruction. status post maher c catheter seen by nephrology creatinine still around 5 continue IV fluids, will switch to D5 half NS given hyper natremia monitor kidney function closely avoid nephrotoxins hypernatremia sodium around 151 avoid over-correction will switch to D5 half NS monitor sodium UTI. continue IV antibiotic follow-up cultures Anemia. acute on chronic now with hematuria resolving monitor CBC Diabetes mellitus. Brittle diabetes. continue Sliding scale, ADA diet, continue insulin. Hyperlipidemia. Continue statin. DVT prophylaxis with mechanical compression boots due to hematuria
[2020-07-22] MEDS: Dextrose 5 % and 0.45 % NaCl 1,000 ML 80 ML IVCONT (14:16)
--- NOTE | 2020-07-22 15:29 | MHC.CM.PN ---
IMM 07/22/2020 Female 80 DX UTI DELORIS.CRF. 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 She has dementia, and is non verbal. She is able to ambulate short distances with 2 assist. She is dependent adls and feeding. Information was obtained from Family interview and [facility]. DP return home with resumption of [facility] services, and [employer]. CM will follow to assess for change in dc needs.
[2020-07-22 18:10] LABS: Glucose, Whole Blood 262 mg/dL (60-115)
[2020-07-22] MEDS: Insulin Lispro 100 UNIT/ML 3 ML VIAL 7 UNIT SUBCUT (18:13)
[2020-07-22 20:30] LABS: Glucose, Whole Blood 263 mg/dL (60-115)
[2020-07-22] MEDS: Ferrous Sulfate 324 MG TABLET.DR PO (20:55)
[2020-07-22] MEDS: Bethanechol Chloride 25 MG TABLET PO (20:56)
[2020-07-22] MEDS: Atorvastatin Calcium 10 MG TABLET PO (20:56)
--- NOTE | 2020-07-22 21:04 | PC.NURSE ---
PATIENT SPITTED OUT MOST OF HER BEDTIME MEDS
[2020-07-23] VITALS (7 sets, daily range): BP systolic 133–173; BP diastolic 55–76; PULSE 69–80; RESP 18–20; TEMP 36.2–37.1; O2SAT 97–100
[2020-07-23] MEDS: Dextrose 5 % and 0.45 % NaCl 1,000 ML 80 ML IVCONT ×2 (00:47→12:42)
[2020-07-23] MEDS: Ampicillin Sodium 500 MG in 0.9 % Sodium Chloride 50 ML 100 MG IV ×5 (01:03→23:49)
[2020-07-23 06:53] LABS: Basophils Percent Auto 0.2 % (0-2); Hematocrit 29.5 % (37-47); Hemoglobin 9.5 g/dl (12.0-16.0); Imm Gran Abs Auto 0.27 X10*3/uL (0.00-0.03); Imm Gran Pct Auto 4.2 % (0.0-0.4); Lymphocytes Absolute Auto 0.6 X10*3/uL (1.2-4.9); Lymphocytes Percent Auto 9.9 % (20-40); MANUAL DIFF FLAG SCAN; Mean Corpuscular HGB Conc 32.2 g/dl (31.0-35.0); Mean Corpuscular Volume 93.1 fL (80-98); Mean Platelet Volume 11.5 fL (9.4-12.3); Monocytes Absolute Auto 0.4 X10*3/uL (0.1-1.2); Monocytes Percent Auto 6.2 % (2-11); Neutrophils Absolute Auto 5.2 X10*3/uL (2.0-8.3); Neutrophils Percent Auto 79.5 % (45-73); Platelet Count 182 X10*3/uL (160-400); Red Blood Count 3.17 X10*6/uL (4.20-5.50); Red Cell Distribution Width 14.9 % (11.0-16.0); SCAN SMEAR FLAG 1; White Blood Count 6.5 X10*3/uL (4.8-10.8)
[2020-07-23 07:32] LABS: Glucose Random 316 mg/dL (60-115)
[2020-07-23 07:43] LABS: Anion Gap 17 (12-20); Blood Urea Nitrogen 114 mg/dL (9-16); Calcium 7.3 mg/dL (8.4-10.2); Carbon Dioxide 15 mmol/L (22-29); Chloride 120 mmol/L (96-108); Potassium 4.2 mmol/l (3.3-5.1); Sodium 148 mmol/L (135-145)
[2020-07-23 07:50] LABS: SLIDE REVIEW VERIFIED
[2020-07-23 07:53] LABS: Creatinine Clr Calc Pharmacy 6.7; Estimated Glomerular Filt Rate 10
[2020-07-23] MEDS: 0.9 % Sodium Chloride Flush 3 ML SYRINGE IVFLUSH ×2 (08:00→23:49)
[2020-07-23 08:01] LABS: Glucose, Whole Blood 304 mg/dL (60-115)
[2020-07-23] MEDS: Insulin Lispro 100 UNIT/ML 3 ML VIAL 7 UNIT SUBCUT ×2 (08:02→12:07)
[2020-07-23] MEDS: Bethanechol Chloride 25 MG TABLET PO (08:02)
[2020-07-23] MEDS: Insulin Glargine,Hum.rec.anlog 100 UNIT/ML 10 ML VIAL SUBCUT (08:02)
[2020-07-23] MEDS: Ferrous Sulfate 324 MG TABLET.DR PO (08:02)
--- NOTE | 2020-07-23 08:48 | MHC.CDI.CONC ---
CDI Concurrent Query Service Date: 07/23/20 Documentation Clarification: Please clarify if you are treating a probable/suspected/likely or confirmed: Malnutrition, mild, moderate or severe Please specify if known or other Provider Response: Mild Protein-Calorie Malnutrition PLEASE DO NOT DELETE/MODIFY EXISTING CONTENT Additional information is needed in order to code to the highest accuracy and appropriate Severity of Illness (SOI). Please clarify the information noted below in your progress notes and discharge summary. Risk Factors/Clinical Indicators/Treatments Nutrition notes pt is mildly malnourished BMI 17.6 Total protein 5.9 Albumin 3.2 FTT, dehydration adding glucerna CDS: Aleah Todd, DARIEN, CDIS Contact Number: [phone] Please Review the information above and exercise your independent professional judgment in responding to the query. If you concur, pleas document in the PROGRESS NOTES and DISCHARGE SUMMARY. If you do not agree with the query, please document in the query above. THIS QUERY IS PART OF THE PERMANENT MEDICAL RECORD
--- NOTE | 2020-07-23 11:24 | MHC.CM.PN ---
per rounds dc anticapted in 1 to 2 days home with [facility]/ services
[2020-07-23 11:39] LABS: Glucose, Whole Blood 210 mg/dL (60-115)
--- NOTE | 2020-07-23 11:58 | MHC.CLN ---
F/U WILL RE-START GLUCERNA BID TO INCREASE KCALS MONITOR PO INTAKES AND WEIGHT CLOSELY SEE ALSO CLINICAL NUTRITION ASSESSMENT
--- NOTE | 2020-07-23 12:54 | PM.PNNEP ---
Subjective Subjective Date of Service: 07/23/20 Interval history: Seen and examined. Events noted. All recent data reviewed. D/W Hospitalist Physical Exam Vital Signs: Vital Signs: Last Vital Signs Temp 97.6 F 07/23/20 11:59 Pulse 75 07/23/20 11:59 Resp 20 07/23/20 11:59 BP 141/65 H 07/23/20 11:59 Pulse Ox 100 07/23/20 11:59 Body Mass Index 17.6 Const: General: no acute distress Neck: Neck: Yes supple Resp: Auscultation: diminished lung sounds Cardio: Heart sounds: no rubs GI: Palpation (GI): Soft to palpation Neuro: General: moves all extremities Objective Data Labs CBC & Chem 7: 07/23/20 05:29 07/23/20 05:29 Labs: Laboratory Results - last 24 hr 07/22/20 07/22/20 07/23/20 18:06 20:25 05:29 WBC 6.5 RBC 3.17 L Hgb 9.5 L Hct 29.5 L MCV 93.1 MCH 30.0 MCHC 32.2 RDW 14.9 Plt Count 182 MPV 11.5 Immature Gran % (Auto) 4.2 H Neut % (Auto) 79.5 H Lymph % (Auto) 9.9 L Brown % (Auto) 6.2 Eos % (Auto) 0.0 Baso % (Auto) 0.2 Lymph # (Auto) 0.6 L Brown # (Auto) 0.4 Eos # (Auto) 0.0 Baso # (Auto) 0.0 Abs Immat Gran (auto) 0.27 H Absolute Neuts (auto) 5.2 Absolute Nucleated RBC 0.000 Nucleated RBC % (auto) 0.0 Smear Tech's Comments VERIFIED Sodium Potassium Chloride Carbon Dioxide Anion Gap BUN Creatinine Estim Creat Clear Calc Estimated GFR POC Glucose 262 H 263 H Random Glucose Calcium 07/23/20 07/23/20 07/23/20 05:29 07:39 11:16 WBC RBC Hgb Hct MCV MCH MCHC RDW Plt Count MPV Immature Gran % (Auto) Neut % (Auto) Lymph % (Auto) Brown % (Auto) Eos % (Auto) Baso % (Auto) Lymph # (Auto) Brown # (Auto) Eos # (Auto) Baso # (Auto) Abs Immat Gran (auto) Absolute Neuts (auto) Absolute Nucleated RBC Nucleated RBC % (auto) Smear Tech's Comments Sodium 148 H Potassium 4.2 Chloride 120 H Carbon Dioxide 15 L Anion Gap 17 BUN 114 H* Creatinine 4.41 H* Estim Creat Clear Calc 6.7 Estimated GFR 10 POC Glucose 304 H 210 H Random Glucose 316 H D Calcium 7.3 L D Microbiology Microbiology Results: Microbiology 07/21/20 15:14 Urine Catheterized - Straight Catheter Urine Culture - Final Enterococcus faecalis 07/21/20 17:40 Blood - Venous Blood Culture - Preliminary 07/21/20 17:38 Blood - Venous Blood Culture - Preliminary No growth after 24 hours. Assessment & Plan Assessment and plan (1) CKD (chronic kidney disease) stage 4, GFR 15-29 ml/min: Problem details: DELORIS on CKD due to tubular injury Has H/O Hydronephrosis with obstruction Hypernatremic. Serum creatinine improving Has CKD 4 at baseline with U/L atrophic kidney Hemodynamics stable; Fluid rate adjusted Concur with rest of current supportive care Labs AM. Shall follow up Status: Acute Time Spent With Patient Time: Total time spent is greater than 50% in coordination of care (as documented) at patient's floor/unit and/or counseling patient:
--- NOTE | 2020-07-23 15:40 | HO.PM.IMPN ---
Subjective Subjective Date of Service: 07/23/20 Interval History: patient seen and examined at bedside patient remains confused Physical Exam Vital Signs: Vital Signs: Last Vital Signs Temp 97.6 F 07/23/20 11:59 Pulse 75 07/23/20 11:59 Resp 20 07/23/20 11:59 BP 141/65 H 07/23/20 11:59 Pulse Ox 100 07/23/20 11:59 Body Mass Index 17.6 Const: General: cooperative, healthy appearing, comfortable, no acute distress, well developed, alert and awake HENMT: Head: Yes normal to inspection and Yes No palpable skull fracture present Eyes: General: appearance normal, both eyes and all related structures Neck: Neck: Yes normal visual inspection, Yes full ROM, Yes no lymphadenopathy, Yes no meningeal signs, Yes trachea midline, Yes supple and No tender Chest: Chest palpation & inspection: normal inspection of the chest Resp: Effort & Inspection: normal respiratory effort and able to speak in complete sentences Auscultation: clear to auscultation bilaterally and diminished lung sounds Cardio: Jugular venous distension: no JVD Rate: regular rate Heart sounds: S1 normal heart sound present and S2 normal heart sound present GI: Inspection: Yes normal to inspection and No abdominal wall ecchymosis Palpation (GI): Soft to palpation, not firm, nontender, no guarding and not rigid : General: No CVA tenderness and Yes no CVA tenderness Back/Spine/Pelvis: Back: no CVA tenderness, No CVA tenderness and No back tenderness Skin: General skin exam: no rashes or lesions noted Neuro: Other: Patient is bedbound, has severe dementia, and does not speak at baseline. General: moves all extremities and no meningeal signs Extrem: General: Yes normal to inspection and Yes full ROM Psych: Appearance: grossly normal, well kempt and not disheveled Objective Data Current Medications Generic Name Dose Route Start Last Admin Trade Name Freq PRN Reason Stop Dose Admin Acetaminophen 650 mg 07/22/20 09:17 Acetaminophen 325 Mg Tablet PO Q6H PRN Pain, Mild (Pain Scale 1-3) Atorvastatin Calcium 10 mg 07/22/20 09:17 07/22/20 20:56 Atorvastatin Calcium 10 Mg Tablet PO 10 mg BEDTIME LEIGH Administration Bethanechol Chloride 25 mg 07/22/20 21:00 07/23/20 08:02 Bethanechol Chloride 25 Mg Tablet PO 25 mg BID LEIGH Administration Doxazosin Mesylate 0.5 mg 07/22/20 09:17 07/22/20 20:55 Doxazosin Mesylate 1 Mg Tablet PO 0.5 mg BEDTIME LEIGH Administration Protocol Ferrous Sulfate 324 mg 07/22/20 21:00 07/23/20 08:02 Ferrous Sulfate 324 Mg Tablet.Dr PO 324 mg BID LEIGH Administration Dextrose/Sodium Chloride 1,000 mls @ 100 mls/hr 07/22/20 13:15 07/23/20 12:44 D51/2ns IVCONT 80 mls/hr .Q10H LEIGH Infusion Ampicillin Sodium 500 mg/ 50 mls @ 100 mls/hr 07/23/20 00:00 07/23/20 12:45 Sodium Chloride IV Infused RQ6H [facility] Infusion Insulin Glargine 5 unit 07/23/20 09:00 07/23/20 08:02 Insulin Glargine,Hum.Rec.Anlog 100 Unit/Ml 10 Ml Vial SUBCUT 5 unit DAILY [facility] Administration Insulin Human Lispro 7 unit 07/22/20 11:30 07/23/20 12:07 Insulin Lispro 100 Unit/Ml 3 Ml Vial SUBCUT 7 unit TIDAC [facility] Administration Non-Formulary Medication 8.4 gm 07/22/20 09:17 Patiromer Calcium Sorbitex [Veltassa] PO DAILY [facility] Ondansetron HCl 4 mg 07/22/20 09:17 Ondansetron Hcl 4 Mg/2 Ml Vial IVPUSH Q8H PRN Nausea and Vomiting Pharmacy Consult 1 each 07/21/20 18:26 Consult Rx Perform Med Rec MISCELLANE ONCE PRN Consult order Sodium Chloride 3 ml 07/22/20 09:17 07/23/20 08:00 0.9 % Sodium Chloride Flush 3 Ml Syringe IVFLUSH 3 ml QSHIFT [facility] Administration Labs CBC & Chem 7: 07/23/20 05:29 07/23/20 05:29 Microbiology Microbiology Results: Microbiology 07/21/20 15:14 Urine Catheterized - Straight Catheter Urine Culture - Final Enterococcus faecalis 07/21/20 17:40 Blood - Venous Blood Culture - Preliminary 07/21/20 17:38 Blood - Venous Blood Culture - Preliminary No growth after 24 hours. Assessment and Plan (1) CKD (chronic kidney disease) stage 4, GFR 15-29 ml/min: Status: Acute Assessment and Plan: 72-year-old woman admitted with bladder outlet obstruction and UTI. Patient has history of hydronephrosis and hematuria. She does intermittent catheterizations at home. DELORIS on ckd likely multifactorial dehydration ATN Hydronephrosis with obstruction. status post maher c catheter seen by nephrology creatinine slowly trending down continue IV d5ns monitor kidney function closely avoid nephrotoxins Hypernatremia improving sodium 148 today avoid over-correction continue D5 half NS monitor sodium UTI. continue IV antibiotic follow-up cultures Anemia. acute on chronic now with hematuria resolving monitor CBC Diabetes mellitus. Brittle diabetes. continue Sliding scale, ADA diet, continue insulin. Hyperlipidemia. Continue statin. DVT prophylaxis with mechanical compression boots due to hematuria
[2020-07-23 16:37] LABS: Glucose, Whole Blood 137 mg/dL (60-115)
[2020-07-23 20:55] LABS: Glucose, Whole Blood 129 mg/dL (60-115)
[2020-07-24] MEDS: Dextrose 5 % and 0.45 % NaCl 1,000 ML 80 ML IVCONT ×2 (01:22→16:21)
[2020-07-24 03:01] VITALS: BP 131/76; PULSE 81; RESP 18; TEMP 36.8; O2SAT 96
[2020-07-24] MEDS: Ampicillin Sodium 500 MG in 0.9 % Sodium Chloride 50 ML 100 MG IV ×3 (05:30→17:39)
[2020-07-24 07:40] VITALS: BP 162/84; PULSE 68; RESP 22; TEMP 36.8; O2SAT 98
[2020-07-24 08:24] LABS: Glucose, Whole Blood 200 mg/dL (60-115)
[2020-07-24] MEDS: Insulin Glargine,Hum.rec.anlog 100 UNIT/ML 10 ML VIAL SUBCUT (09:04)
--- NOTE | 2020-07-24 12:12 | HO.PM.IMPN ---
Subjective Subjective Date of Service: 07/24/20 Interval History: Patient seen and examined at bedside patient remains confused Physical Exam Vital Signs: Vital Signs: Last Vital Signs Temp 98.2 F 07/24/20 07:40 Pulse 68 07/24/20 07:40 Resp 22 H 07/24/20 07:40 BP 162/84 H 07/24/20 07:40 Pulse Ox 98 07/24/20 07:40 Body Mass Index 17.6 Const: General: cooperative, healthy appearing, comfortable, no acute distress, well developed, alert and awake HENMT: Head: Yes normal to inspection and Yes No palpable skull fracture present Eyes: General: appearance normal, both eyes and all related structures Neck: Neck: Yes normal visual inspection, Yes full ROM, Yes no lymphadenopathy, Yes no meningeal signs, Yes trachea midline, Yes supple and No tender Chest: Chest palpation & inspection: normal inspection of the chest Resp: Effort & Inspection: normal respiratory effort and able to speak in complete sentences Auscultation: clear to auscultation bilaterally and diminished lung sounds Cardio: Jugular venous distension: no JVD Rate: regular rate Heart sounds: S1 normal heart sound present and S2 normal heart sound present GI: Inspection: Yes normal to inspection and No abdominal wall ecchymosis Palpation (GI): Soft to palpation, not firm, nontender, no guarding and not rigid : General: No CVA tenderness and Yes no CVA tenderness Back/Spine/Pelvis: Back: no CVA tenderness, No CVA tenderness and No back tenderness Skin: General skin exam: no rashes or lesions noted Neuro: Other: Patient is bedbound, has severe dementia, and does not speak at baseline. General: moves all extremities and no meningeal signs Extrem: General: Yes normal to inspection and Yes full ROM Psych: Appearance: grossly normal, well kempt and not disheveled Objective Data Current Medications Generic Name Dose Route Start Last Admin Trade Name Freq PRN Reason Stop Dose Admin Acetaminophen 650 mg 07/22/20 09:17 Acetaminophen 325 Mg Tablet PO Q6H PRN Pain, Mild (Pain Scale 1-3) Atorvastatin Calcium 10 mg 07/22/20 09:17 07/23/20 20:35 Atorvastatin Calcium 10 Mg Tablet PO Not Given BEDTIME [facility] Bethanechol Chloride 25 mg 07/22/20 21:00 07/24/20 09:09 Bethanechol Chloride 25 Mg Tablet PO Not Given BID [facility] Doxazosin Mesylate 0.5 mg 07/22/20 09:17 07/23/20 20:36 Doxazosin Mesylate 1 Mg Tablet PO Not Given BEDTIME [facility] Protocol Ferrous Sulfate 324 mg 07/22/20 21:00 07/24/20 09:09 Ferrous Sulfate 324 Mg Tablet.Dr PO Not Given BID LEIGH Dextrose/Sodium Chloride 1,000 mls @ 100 mls/hr 07/22/20 13:15 07/24/20 01:22 D51/2ns IVCONT 80 mls/hr .Q10H [facility] Administration Ampicillin Sodium 500 mg/ 50 mls @ 100 mls/hr 07/23/20 00:00 07/24/20 06:02 Sodium Chloride IV Infused RQ6H [facility] Infusion Insulin Glargine 5 unit 07/23/20 09:00 07/24/20 09:04 Insulin Glargine,Hum.Rec.Anlog 100 Unit/Ml 10 Ml Vial SUBCUT 5 unit DAILY [facility] Administration Insulin Human Lispro 7 unit 07/22/20 11:30 07/24/20 09:04 Insulin Lispro 100 Unit/Ml 3 Ml Vial SUBCUT Not Given TIDAC [facility] Non-Formulary Medication 8.4 gm 07/22/20 09:17 Patiromer Calcium Sorbitex [Veltassa] PO DAILY [facility] Ondansetron HCl 4 mg 07/22/20 09:17 Ondansetron Hcl 4 Mg/2 Ml Vial IVPUSH Q8H PRN Nausea and Vomiting Pharmacy Consult 1 each 07/21/20 18:26 Consult Rx Perform Med Rec MISCELLANE ONCE PRN Consult order Sodium Chloride 3 ml 07/22/20 09:17 07/24/20 09:04 0.9 % Sodium Chloride Flush 3 Ml Syringe IVFLUSH Not Given QSHIFT [facility] Labs CBC & Chem 7: 07/24/20 11:59 07/24/20 11:59 Microbiology Microbiology Results: Microbiology 07/21/20 17:40 Blood - Venous Blood Culture - Final Coag negative Staphylococcus 07/21/20 17:38 Blood - Venous Blood Culture - Preliminary No growth after 48 hours. 07/21/20 15:14 Urine Catheterized - Straight Catheter Urine Culture - Final Enterococcus faecalis Assessment and Plan (1) CKD (chronic kidney disease) stage 4, GFR 15-29 ml/min: Status: Acute Assessment and Plan: 72-year-old woman admitted with bladder outlet obstruction and UTI. Patient has history of hydronephrosis and hematuria. She does intermittent catheterizations at home. DELORIS on ckd likely multifactorial dehydration ATN Hydronephrosis with obstruction. improving status post maher catheter seen by nephrology creatinine slowly trending down down from 5 to 3.6 today continue IV d5ns monitor kidney function closely avoid nephrotoxins Hypernatremia sodium 151 today avoid over-correction continue D5 half NS monitor sodium UTI. continue IV antibiotic urine culture growing enterococcal faecalis will get ID consult 1 set of blood culture grew coagulase-negative Staph likely contamination Anemia. acute on chronic now with hematuria resolving monitor CBC Diabetes mellitus. Brittle diabetes. continue Sliding scale, ADA diet, continue insulin. Hyperlipidemia. Continue statin. DVT prophylaxis with mechanical compression boots due to hematuria
[2020-07-24 12:22] LABS: Hematocrit 29.3 % (37-47); Hemoglobin 9.5 g/dl (12.0-16.0); Mean Corpuscular HGB Conc 32.4 g/dl (31.0-35.0); Mean Corpuscular Hemoglobin 30.2 pg (27.0-33.0); Mean Platelet Volume 10.9 fL (9.4-12.3); Platelet Count 163 X10*3/uL (160-400); Red Blood Count 3.15 X10*6/uL (4.20-5.50); Red Cell Distribution Width 14.7 % (11.0-16.0); White Blood Count 5.9 X10*3/uL (4.8-10.8)
[2020-07-24 12:39] LABS: Glucose, Whole Blood 210 mg/dL (60-115)
[2020-07-24 12:42] VITALS: BP 154/56; PULSE 96; RESP 22; TEMP 36.3; O2SAT 96
[2020-07-24 12:56] LABS: Band Neutrophils Percent 0 % (3-5); Eosinophils Absolute Manual 0.1 X10*3/UL (0.0-0.8); Eosinophils Percent Manual 1 % (0-4); Lymphocytes Absolute Manual 0.3 X10*3/uL (0.6-4.8); Lymphocytes Percent Manual 5 % (20-40); Metamyelocytes Absolute 0.1 X10*3/uL; Metamyelocytes Percent 1 %; Monocytes Absolute Manual 0.1 X10*3/uL (0.0-1.2); Monocytes Percent Manual 1 % (2-11); Neutrophils Absolute Manual 5.4 X10*3/uL (2.2-7.9); Neutrophils Percent Manual 92 % (45-73); Ovalocytes 1+; RBC Morphology NOTED
[2020-07-24 12:57] LABS: Platelet Estimate NORMAL (NORMAL); Platelet Morphology Comment NORMAL
[2020-07-24 13:14] LABS: Anion Gap 15 (12-20); Blood Urea Nitrogen 101 mg/dL (9-16); Calcium 6.7 mg/dL (8.4-10.2); Carbon Dioxide 16 mmol/L (22-29); Chloride 124 mmol/L (96-108); Creatinine Clr Calc Pharmacy 8.3; Estimated Glomerular Filt Rate 12; Glucose Random 250 mg/dL (60-115); Potassium 3.8 mmol/l (3.3-5.1); Sodium 151 mmol/L (135-145)
[2020-07-24] MEDS: 0.9 % Sodium Chloride Flush 3 ML SYRINGE IVFLUSH (13:58)
[2020-07-24 15:29] VITALS: BP 145/63; PULSE 72; RESP 20; O2SAT 97
--- NOTE | 2020-07-24 15:37 | PM.PNNEP ---
Subjective Subjective Date of Service: 07/24/20 Interval history: Patient seen and examined at bedside patient remains confused Physical Exam Vital Signs: Vital Signs: Last Vital Signs Temp 97.4 F 07/24/20 12:42 Pulse 72 07/24/20 15:29 Resp 20 07/24/20 15:29 BP 145/63 H 07/24/20 15:29 Pulse Ox 97 07/24/20 15:29 Body Mass Index 17.6 Const: General: cooperative, healthy appearing, comfortable, no acute distress, well developed, alert and awake HENMT: Head: Yes normal to inspection and Yes No palpable skull fracture present Eyes: General: appearance normal, both eyes and all related structures Neck: Neck: Yes normal visual inspection, Yes full ROM, Yes no lymphadenopathy, Yes no meningeal signs, Yes trachea midline, Yes supple and No tender Chest: Chest palpation & inspection: normal inspection of the chest Resp: Effort & Inspection: normal respiratory effort and able to speak in complete sentences Auscultation: clear to auscultation bilaterally and diminished lung sounds Cardio: Jugular venous distension: no JVD Rate: regular rate Heart sounds: S1 normal heart sound present, S2 normal heart sound present and no rubs GI: Inspection: Yes normal to inspection and No abdominal wall ecchymosis Palpation (GI): Soft to palpation, not firm, nontender, no guarding and not rigid : General: No CVA tenderness and Yes no CVA tenderness Back/Spine/Pelvis: Back: no CVA tenderness, No CVA tenderness and No back tenderness Skin: General skin exam: no rashes or lesions noted Neuro: Other: Patient is bedbound, has severe dementia, and does not speak at baseline. General: moves all extremities and no meningeal signs Extrem: General: Yes normal to inspection and Yes full ROM Psych: Appearance: grossly normal, well kempt and not disheveled Objective Data Labs CBC & Chem 7: 07/24/20 11:59 07/24/20 11:59 Labs: Laboratory Results - last 24 hr 07/23/20 07/23/20 07/24/20 16:33 20:48 07:37 WBC RBC Hgb Hct MCV MCH MCHC RDW Plt Count MPV Immature Gran % (Auto) Neut % (Auto) Lymph % (Auto) [place] % (Auto) Eos % (Auto) Baso % (Auto) Lymph # (Auto) [place] # (Auto) Eos # (Auto) Baso # (Auto) Abs Immat Gran (auto) Absolute Neuts (auto) Absolute Nucleated RBC Nucleated RBC % (auto) Neutrophils % (Manual) Band Neutrophils % Lymphocytes % (Manual) Monocytes % (Manual) Eosinophils % (Manual) Metamyelocytes % Abs Neuts (Manual) Lymphocytes # (Manual) Monocytes # (Manual) Eosinophils # (Manual) Metamyelocytes # Platelet Estimate Plt Morphology Comment RBC Morphology Ovalocytes Sodium Potassium Chloride Carbon Dioxide Anion Gap BUN Creatinine Estim Creat Clear Calc Estimated GFR POC Glucose 137 H 129 H 200 H Random Glucose Calcium 07/24/20 07/24/20 07/24/20 11:59 11:59 12:36 WBC 5.9 RBC 3.15 L Hgb 9.5 L Hct 29.3 L MCV 93.0 MCH 30.2 MCHC 32.4 RDW 14.7 Plt Count 163 MPV 10.9 Immature Gran % (Auto) Cancelled Neut % (Auto) Cancelled Lymph % (Auto) Cancelled [place] % (Auto) Cancelled Eos % (Auto) Cancelled Baso % (Auto) Cancelled Lymph # (Auto) Cancelled [place] # (Auto) Cancelled Eos # (Auto) Cancelled Baso # (Auto) Cancelled Abs Immat Gran (auto) Cancelled Absolute Neuts (auto) Cancelled Absolute Nucleated RBC 0.000 Nucleated RBC % (auto) 0.0 Neutrophils % (Manual) 92 H Band Neutrophils % 0 L Lymphocytes % (Manual) 5 L Monocytes % (Manual) 1 L Eosinophils % (Manual) 1 Metamyelocytes % 1 Abs Neuts (Manual) 5.4 Lymphocytes # (Manual) 0.3 L Monocytes # (Manual) 0.1 Eosinophils # (Manual) 0.1 Metamyelocytes # 0.1 Platelet Estimate NORMAL Plt Morphology Comment NORMAL RBC Morphology NOTED Ovalocytes 1+ Sodium 151 H Potassium 3.8 Chloride 124 H Carbon Dioxide 16 L Anion Gap 15 BUN 101 H* Creatinine 3.58 H Estim Creat Clear Calc 8.3 Estimated GFR 12 POC Glucose 210 H Random Glucose 250 H Calcium 6.7 L D Microbiology Microbiology Results: Microbiology 07/21/20 17:40 Blood - Venous Blood Culture - Final Coag negative Staphylococcus 07/21/20 17:38 Blood - Venous Blood Culture - Preliminary No growth after 48 hours. 07/21/20 15:14 Urine Catheterized - Straight Catheter Urine Culture - Final Enterococcus faecalis Assessment & Plan Assessment and plan (1) CKD (chronic kidney disease) stage 4, GFR 15-29 ml/min: Status: Acute Assessment and Plan: 72-year-old woman admitted with bladder outlet obstruction and UTI. Patient has history of hydronephrosis and hematuria. She does intermittent catheterizations at home. DELORIS on ckd likely multifactorial dehydration ATN Pt is sleepy and may be uremic Hypernatremia sodium 151 today -would continue 1/2 normal saline at 125 cc/hr UTI. continue IV antibiotic urine culture growing enterococcal faecalis will get ID consult Recommendations: D51/2 NS at 125/hr Monitor UO May come to require dialysis Time Spent With Patient Time: Total time spent is greater than 50% in coordination of care (as documented) at patient's floor/unit and/or counseling patient:
[2020-07-24 16:57] LABS: Glucose, Whole Blood 228 mg/dL (60-115)
[2020-07-24] MEDS: Insulin Lispro 100 UNIT/ML 3 ML VIAL 7 UNIT SUBCUT (17:39)
[2020-07-24 19:36] VITALS: BP 159/70; PULSE 77; RESP 18; O2SAT 97
[2020-07-24 20:47] VITALS: BP 159/70; PULSE 77
[2020-07-24] MEDS: Bethanechol Chloride 25 MG TABLET PO (20:47)
[2020-07-24] MEDS: Atorvastatin Calcium 10 MG TABLET PO (20:47)
[2020-07-24] MEDS: Doxazosin Mesylate 1 MG TABLET 0.5 MG PO (20:47)
[2020-07-24] MEDS: Ferrous Sulfate 324 MG TABLET.DR PO (20:47)
[2020-07-24 21:51] LABS: Glucose, Whole Blood 90 mg/dL (60-115)
--- NOTE | 2020-07-24 22:24 | W.PM.IDCN ---
History of Present Illness Data of Consult Service Date: 07/24/20 Requesting physician: Duy Kern Primary Care Provider: MD ANSON Hernandez Reason for consult: weakness,urinary infection He presents to hospital with nausea,vomiting and weakness for 3 days There is enterococcus in urine He has dementia and not able to tell information Review of Systems Review of Systems: Yes Unobtainable due to mental condition Neurologic: Reports confusion Psychiatric: Psychiatric: Reports confusion PMFSH Past Medical History Medical History CKD (chronic kidney disease) stage 4, GFR 15-29 ml/min Dementia Diabetic nephropathy associated with type 2 diabetes mellitus Intellectual disability Osteoporosis Parkinson disease Urinary retention Family History Family History Father No problems noted. Mother Diabetes Family history: reviewed and not pertinent Surgical History Surgical History H/O cystoscopy Social History Social History Household Members: Unknown / Unable to assess Housing: Unknown / Unable to assess Alcohol intake: never Smoking Status: Unknown if ever smoked Use of substances other than those prescribed or required for medical reasons: Unknown Currently Displaying Signs/Symptoms of Drug Intoxication Withdrawal: No Advance Directives: No Advance Directives Information Provided: No Do you have thoughts of harming others: None Do you have a plan to hurt others: No Plan service: No Current occupational status: disabled Meds Allergies Allergy/AdvReac Type Severity Reaction Status Date / Time levofloxacin [From LEVAQUIN] Allergy Unknown RASH Verified 06/01/20 10:55 Home Medications Medication Instructions Recorded Confirmed Type atorvastatin 10 mg tablet 10 mg PO BEDTIME 05/24/20 07/21/20 History denosumab 60 mg/mL subcutaneous 60 mg SUBCUT [id number] 05/24/20 07/21/20 History syringe Toujeo SoloStar U-300 Insulin 8 unit SUBCUT DAILY 05/31/20 07/21/20 History Veltassa 8.4 g PO DAILY 05/31/20 07/21/20 History insulin aspart U-100 [Novolog 7 unit SUBCUT TIDAC 05/31/20 07/21/20 History Flexpen U-100 Insulin] ascorbic acid (vitamin C) 500 mg PO BID 07/21/20 07/21/20 History bethanechol chloride 25 mg PO BID 07/21/20 07/21/20 History ferrous sulfate 325 mg PO BID 07/21/20 07/21/20 History ondansetron HCl 4 mg PO TID PRN 07/21/20 07/21/20 History Physical Exam Vital Signs: Vital Signs: Last Vital Signs Temp 97.4 F 07/24/20 12:42 Pulse 77 07/24/20 20:47 Resp 18 07/24/20 19:36 BP 159/70 H 07/24/20 20:47 Pulse Ox 97 07/24/20 19:36 Body Mass Index 17.6 Const: General: cooperative and confusion Orientation/consciousness: confusion HENMT: Head: Yes normal to inspection Mouth: Normal oral and palatal mucosa present Resp: Effort & Inspection: normal respiratory effort Cardio: Rate: regular rate Rhythm: regular rhythm GI: Inspection: Yes normal to inspection Skin: General skin exam: no rashes or lesions noted Neuro: General: confusion Assessment and Plan (1) Acute UTI: Problem details: He has urinary infection He has sensitivity to Ampicillin Status: Acute Can continue Ampicillin May change to po Amoxiciliin when able total 10 days (2) Acute renal failure: Status: Acute (3) Parkinson disease: Status: Acute Results Labs CBC & Chem 7: 07/24/20 11:59 07/24/20 11:59 Labs: Short CBC 07/24/20 Range/Units 11:59 WBC 5.9 (4.8-10.8) X10*3/uL Hgb 9.5 L (12.0-16.0) g/dl Hct 29.3 L (37-47) % Plt Count 163 (160-400) X10*3/uL BMP 07/24/20 11:59 Sodium 151 H Potassium 3.8 Chloride 124 H Carbon Dioxide 16 L BUN 101 H* Creatinine 3.58 H Calcium 6.7 L D Microbiology Microbiology Results: Microbiology 07/21/20 17:40 Blood - Venous Blood Culture - Final Coag negative Staphylococcus 07/21/20 17:38 Blood - Venous Blood Culture - Preliminary No growth after 48 hours. 07/21/20 15:14 Urine Catheterized - Straight Catheter Urine Culture - Final Enterococcus faecalis
[2020-07-25] VITALS (8 sets, daily range): BP systolic 120–178; BP diastolic 58–84; PULSE 77–101; RESP 19–44; TEMP 36.1–37.2; O2SAT 96–98
[2020-07-25] MEDS: Ampicillin Sodium 500 MG in 0.9 % Sodium Chloride 50 ML 100 MG IV ×2 (00:18→05:41)
[2020-07-25] MEDS: 0.9 % Sodium Chloride Flush 3 ML SYRINGE IVFLUSH ×3 (00:18→22:04)
[2020-07-25] MEDS: Dextrose 5 % and 0.45 % NaCl 1,000 ML 80 ML IVCONT (00:46)
[2020-07-25 07:11] LABS: Hematocrit 27.7 % (37-47); Mean Corpuscular HGB Conc 32.5 g/dl (31.0-35.0); Mean Corpuscular Hemoglobin 29.9 pg (27.0-33.0); Mean Platelet Volume 11.2 fL (9.4-12.3); Platelet Count 155 X10*3/uL (160-400); Red Blood Count 3.01 X10*6/uL (4.20-5.50); Red Cell Distribution Width 14.6 % (11.0-16.0); White Blood Count 5.4 X10*3/uL (4.8-10.8)
[2020-07-25 07:35] LABS: Glucose, Whole Blood 209 mg/dL (60-115)
[2020-07-25 08:01] LABS: Anion Gap 12 (12-20); Blood Urea Nitrogen 84 mg/dL (9-16); Calcium 6.4 mg/dL (8.4-10.2); Carbon Dioxide 16 mmol/L (22-29); Chloride 126 mmol/L (96-108); Creatinine Clr Calc Pharmacy 9.4; Estimated Glomerular Filt Rate 14; Glucose Random 211 mg/dL (60-115); Potassium 3.3 mmol/l (3.3-5.1); Sodium 151 mmol/L (135-145)
[2020-07-25] MEDS: Insulin Glargine,Hum.rec.anlog 100 UNIT/ML 10 ML VIAL SUBCUT (08:09)
[2020-07-25] MEDS: Bethanechol Chloride 25 MG TABLET PO ×2 (08:10→21:53)
[2020-07-25] MEDS: Ferrous Sulfate 324 MG TABLET.DR PO (08:10)
[2020-07-25 08:17] LABS: Band Neutrophils Percent 0 % (3-5); Burr Cells 1+; Lymphocytes Absolute Manual 0.2 X10*3/uL (0.6-4.8); Lymphocytes Percent Manual 3 % (20-40); Monocytes Absolute Manual 0.1 X10*3/uL (0.0-1.2); Monocytes Percent Manual 2 % (2-11); Myelocytes Absolute 0.1 X10*/uL; Myelocytes Percent 2 %; Neutrophils Percent Manual 93 % (45-73); Ovalocytes 1+; Platelet Estimate NORMAL (NORMAL); RBC Morphology NOTED
[2020-07-25 08:18] LABS: Platelet Morphology Comment NORMAL
--- NOTE | 2020-07-25 08:37 | P.PNNP_ITS ---
Subjective Subjective Date of Service: 07/25/20 Interval history: Patient seen and examined at bedside. She is curled up and opens eyes when I call her name; she is tremulous. I do not know her baseline but the record says she has dementia and parkinson's and is nonverbal at baseline. Physical Exam Vital Signs: Vital Signs: Last Vital Signs Temp 98.9 F 07/25/20 07:24 Pulse 88 07/25/20 07:24 Resp 20 07/25/20 07:24 BP 159/70 H 07/25/20 07:24 Pulse Ox 97 07/25/20 07:24 Body Mass Index 17.6 HENMT: Mouth: other (Dry mucous membranes) Neck: Other: JVD noted Resp: Effort & Inspection: normal respiratory effort Auscultation: crackles GI: Inspection: Yes normal to inspection Auscultation: Hypoactive bowel sounds present Skin: Other: no [facility] Objective Data Labs CBC & Chem 7: 07/25/20 05:30 07/25/20 05:30 Labs: Laboratory Results - last 24 hr 07/24/20 07/24/20 07/24/20 11:59 11:59 12:36 WBC 5.9 RBC 3.15 L Hgb 9.5 L Hct 29.3 L MCV 93.0 MCH 30.2 MCHC 32.4 RDW 14.7 Plt Count 163 MPV 10.9 Immature Gran % (Auto) Cancelled Neut % (Auto) Cancelled Lymph % (Auto) Cancelled [place] % (Auto) Cancelled Eos % (Auto) Cancelled Baso % (Auto) Cancelled Lymph # (Auto) Cancelled [place] # (Auto) Cancelled Eos # (Auto) Cancelled Baso # (Auto) Cancelled Abs Immat Gran (auto) Cancelled Absolute Neuts (auto) Cancelled Absolute Nucleated RBC 0.000 Nucleated RBC % (auto) 0.0 Neutrophils % (Manual) 92 H Band Neutrophils % 0 L Lymphocytes % (Manual) 5 L Monocytes % (Manual) 1 L Eosinophils % (Manual) 1 Metamyelocytes % 1 Myelocytes % Abs Neuts (Manual) 5.4 Lymphocytes # (Manual) 0.3 L Monocytes # (Manual) 0.1 Eosinophils # (Manual) 0.1 Metamyelocytes # 0.1 Myelocytes # Platelet Estimate NORMAL Plt Morphology Comment NORMAL RBC Morphology NOTED Ovalocytes 1+ [place] Cells Sodium 151 H Potassium 3.8 Chloride 124 H Carbon Dioxide 16 L Anion Gap 15 BUN 101 H* Creatinine 3.58 H Estim Creat Clear Calc 8.3 Estimated GFR 12 POC Glucose 210 H Random Glucose 250 H Calcium 6.7 L D 07/24/20 07/24/20 07/25/20 16:44 21:09 05:30 WBC 5.4 RBC 3.01 L Hgb 9.0 L Hct 27.7 L MCV 92.0 MCH 29.9 MCHC 32.5 RDW 14.6 Plt Count 155 L MPV 11.2 Immature Gran % (Auto) Cancelled Neut % (Auto) Cancelled Lymph % (Auto) Cancelled [place] % (Auto) Cancelled Eos % (Auto) Cancelled Baso % (Auto) Cancelled Lymph # (Auto) Cancelled [place] # (Auto) Cancelled Eos # (Auto) Cancelled Baso # (Auto) Cancelled Abs Immat Gran (auto) Cancelled Absolute Neuts (auto) Cancelled Absolute Nucleated RBC 0.000 Nucleated RBC % (auto) 0.0 Neutrophils % (Manual) 93 H Band Neutrophils % 0 L Lymphocytes % (Manual) 3 L Monocytes % (Manual) 2 Eosinophils % (Manual) Metamyelocytes % Myelocytes % 2 Abs Neuts (Manual) 5.0 Lymphocytes # (Manual) 0.2 L Monocytes # (Manual) 0.1 Eosinophils # (Manual) Metamyelocytes # Myelocytes # 0.1 Platelet Estimate NORMAL Plt Morphology Comment NORMAL RBC Morphology NOTED Ovalocytes 1+ [place] Cells 1+ Sodium Potassium Chloride Carbon Dioxide Anion Gap BUN Creatinine Estim Creat Clear Calc Estimated GFR POC Glucose 228 H 90 Random Glucose Calcium 07/25/20 07/25/20 05:30 07:23 WBC RBC Hgb Hct MCV MCH MCHC RDW Plt Count MPV Immature Gran % (Auto) Neut % (Auto) Lymph % (Auto) [place] % (Auto) Eos % (Auto) Baso % (Auto) Lymph # (Auto) [place] # (Auto) Eos # (Auto) Baso # (Auto) Abs Immat Gran (auto) Absolute Neuts (auto) Absolute Nucleated RBC Nucleated RBC % (auto) Neutrophils % (Manual) Band Neutrophils % Lymphocytes % (Manual) Monocytes % (Manual) Eosinophils % (Manual) Metamyelocytes % Myelocytes % Abs Neuts (Manual) Lymphocytes # (Manual) Monocytes # (Manual) Eosinophils # (Manual) Metamyelocytes # Myelocytes # Platelet Estimate Plt Morphology Comment RBC Morphology Ovalocytes [place] Cells Sodium 151 H Potassium 3.3 Chloride 126 H Carbon Dioxide 16 L Anion Gap 12 BUN 84 H* Creatinine 3.19 H Estim Creat Clear Calc 9.4 Estimated GFR 14 POC Glucose 209 H Random Glucose 211 H Calcium 6.4 L Microbiology Microbiology Results: Microbiology 07/21/20 17:40 Blood - Venous Blood Culture - Final Coag negative Staphylococcus 07/21/20 17:38 Blood - Venous Blood Culture - Preliminary No growth after 48 hours. 07/21/20 15:14 Urine Catheterized - Straight Catheter Urine Culture - Final Enterococcus faecalis Assessment & Plan Assessment and plan (1) Acute renal failure: Problem details: Pt presented with prerenal and post renal DELORIS superimposed on advanced CKD with bilateral renal atrophy and bladder outflow problems with hydro improved with maher cath placement; UTI enterococcal as well Status: Acute (2) Acute UTI: Problem details: He has urinary infection He has sensitivity to Ampicillin-continue Status: Acute (3) CKD (chronic kidney disease) stage 4, GFR 15-29 ml/min: Status: Acute Assessment and Plan: Has advanced CKD stage 5-with HTN and bilateral severe renal atrophy may also have occult bilateral SINDY as well as bladder dysfunction/obstructive nephropathy. 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 (4) Urinary retention with incomplete bladder emptying: Problem details: Keep indwelling maher cath Status: Acute (5) Hypernatremia: Problem details: Need to change fluids now to D5 W with 2 amps (100 meq) socium bicarb per liter at 60/hr Status: Acute (6) Metabolic acidosis: Problem details: Change fluids as above Status: Acute Time Spent With Patient Time: Total time spent is greater than 50% in coordination of care (as documented) at patient's floor/unit and/or counseling patient:
[2020-07-25 11:32] LABS: Glucose, Whole Blood 258 mg/dL (60-115)
[2020-07-25] MEDS: Sodium Bicarbonate 8.4% 100 MEQ in Dextrose 5 % 900 ML 60 MEQ IV (11:52)
[2020-07-25] MEDS: Insulin Lispro 100 UNIT/ML 3 ML VIAL 7 UNIT SUBCUT (11:52)
[2020-07-25] MEDS: Ampicillin Sodium 500 MG in 0.9 % Sodium Chloride 50 ML 50 MG IV ×2 (11:54→18:30)
--- NOTE | 2020-07-25 16:19 | HO.PM.IMPN ---
Subjective Subjective Date of Service: 07/26/20 Interval History: Patient resting in bed is baseline nonverbal with history of underlying dementia as per RN patient is refusing medications and not eating. Unable to obtain review of system due to underlying dementia. Physical Exam Vital Signs: Vital Signs: Last Vital Signs Temp 98.4 F 07/25/20 15:18 Pulse 77 07/25/20 15:18 Resp 19 07/25/20 15:18 BP 175/71 H 07/25/20 15:18 Pulse Ox 98 07/25/20 15:18 Body Mass Index 17.6 Const: Other: General resting comfortably in acute distress. Neck positive JVD. CVS regular rate rhythm, Respiratory lungs diminished, few basilar rales, no respiratory distress Gastrointestinal abdomen soft, bowel sounds audible, no rigidity. Extremities edema. Neuro moving all 4 extremity . Skin no rash Objective Data Current Medications Generic Name Dose Route Start Last Admin Trade Name Freq PRN Reason Stop Dose Admin Acetaminophen 650 mg 07/22/20 09:17 Acetaminophen 325 Mg Tablet PO Q6H PRN Pain, Mild (Pain Scale 1-3) Bethanechol Chloride 25 mg 07/22/20 21:00 07/25/20 08:10 Bethanechol Chloride 25 Mg Tablet PO 25 mg BID LEIGH Administration Doxazosin Mesylate 0.5 mg 07/22/20 09:17 07/24/20 20:47 Doxazosin Mesylate 1 Mg Tablet PO 0.5 mg BEDTIME LEIGH Administration Protocol Ampicillin Sodium 500 mg/ 50 mls @ 100 mls/hr 07/23/20 00:00 07/25/20 13:28 Sodium Chloride IV Infused RQ6H LEIGH Infusion Ondansetron HCl 4 mg 07/22/20 09:17 Ondansetron Hcl 4 Mg/2 Ml Vial IVPUSH Q8H PRN Nausea and Vomiting Pharmacy Consult 1 each 07/21/20 18:26 Consult Rx Perform Med Rec MISCELLANE ONCE PRN Consult order Sodium Chloride 3 ml 07/22/20 09:17 07/25/20 13:26 0.9 % Sodium Chloride Flush 3 Ml Syringe IVFLUSH Not Given QSHIFT [facility] Labs CBC & Chem 7: 07/26/20 05:30 07/26/20 05:30 Microbiology Microbiology Results: Microbiology 07/21/20 17:40 Blood - Venous Blood Culture - Final Coag negative Staphylococcus 07/21/20 17:38 Blood - Venous Blood Culture - Preliminary No growth after 48 hours. 07/21/20 15:14 Urine Catheterized - Straight Catheter Urine Culture - Final Enterococcus faecalis Assessment and Plan (1) CKD (chronic kidney disease) stage 4, GFR 15-29 ml/min: Status: Acute (2) Hypernatremia: Problem details: Need to change fluids now to D5 W with 2 amps (100 meq) socium bicarb per liter at 60/hr Status: Acute (3) Metabolic acidosis: Problem details: Change fluids as above Status: Acute (4) Acute renal failure: Problem details: Pt presented with prerenal and post renal DELORIS superimposed on advanced CKD with bilateral renal atrophy and bladder outflow problems with hydro improved with maher cath placement; UTI enterococcal as well Status: Acute (5) Urinary retention with incomplete bladder emptying: Problem details: Keep indwelling maher cath Status: Acute (6) Parkinson disease: Status: Acute (7) Intellectual disability: Status: Acute (8) Diabetes type 2, uncontrolled: Status: Acute Assessment and Plan: 72-year-old woman admitted with bladder outlet obstruction and UTI. Patient has history of hydronephrosis and hematuria. She does intermittent catheterizations at home. DELORIS on ckd likely multifactorial both pre renal and post renal with bilateral renal atrophy and bladder outflow obstruction Hydronephrosis with obstruction, improving call continue Maher catheter creatinine slowly trending down from 6.23-3.19, case discussed with Dr. Arteaga from Nephrology it seems that patient is approaching hemodialysis but due to her baseline status case discussed with patient's healthcare proxy Blanca Constantino patient's sister at [phone] via aerial photograph interpreter and discussed treatment options including hemodialysis versus hospice care explained that since patient is not eating and refusing medications it will be difficult to treat patient with aggressive measures she agrees for hospice, RN verified her decision since overall patient condition is poor with advanced dementia, diabetes, poor by mouth intake hypernatremia ongoing urine infection it was decided to change patient go status to hospice hospice consulted,will discontinue IV fluid with elevated JVD Hypernatremia sodium 151 not responded to current IV fluid due to elevated JVD will discontinue all IV fluids UTI. urine culture grew enterococcal faecalis/ 1 set of blood culture grew coagulase-negative Staph likely contamination will DC IV antibiotic Anemia. acute on chronic Hematuria resolved hematocrit remain low but stable Diabetes mellitus. Brittle diabetes. Since patient has no oral intake will discontinue insulin Hyperlipidemia. DC statin. DVT prophylaxis with mechanical compression boots due to hematuria
[2020-07-25 16:25] LABS: Glucose, Whole Blood 42 mg/dL (60-115)
[2020-07-25 19:49] LABS: Glucose, Whole Blood 63 mg/dL (60-115)
[2020-07-25] MEDS: Doxazosin Mesylate 1 MG TABLET 0.5 MG PO (21:53)
[2020-07-26] MEDS: Ampicillin Sodium 500 MG in 0.9 % Sodium Chloride 50 ML 50 MG IV ×2 (00:09→05:30)
[2020-07-26 04:50] VITALS: RESP 40
[2020-07-26 06:33] LABS: Hematocrit 29.5 % (37-47); Hemoglobin 9.6 g/dl (12.0-16.0); Imm Gran Abs Auto 0.26 X10*3/uL (0.00-0.03); Imm Gran Pct Auto 3.7 % (0.0-0.4); Lymphocytes Absolute Auto 0.7 X10*3/uL (1.2-4.9); Lymphocytes Percent Auto 9.3 % (20-40); MANUAL DIFF FLAG SCAN; Mean Corpuscular HGB Conc 32.5 g/dl (31.0-35.0); Mean Corpuscular Hemoglobin 30.2 pg (27.0-33.0); Mean Corpuscular Volume 92.8 fL (80-98); Monocytes Absolute Auto 0.2 X10*3/uL (0.1-1.2); Monocytes Percent Auto 2.7 % (2-11); Neutrophils Absolute Auto 5.9 X10*3/uL (2.0-8.3); Neutrophils Percent Auto 84.3 % (45-73); Platelet Count 164 X10*3/uL (160-400); Red Blood Count 3.18 X10*6/uL (4.20-5.50); Red Cell Distribution Width 14.3 % (11.0-16.0); SCAN SMEAR FLAG 1
[2020-07-26 07:24] LABS: Glucose, Whole Blood 76 mg/dL (60-115)
[2020-07-26 07:33] LABS: Blood Urea Nitrogen 79 mg/dL (9-16); Calcium 6.7 mg/dL (8.4-10.2); Creatinine Clr Calc Pharmacy 9.4; Estimated Glomerular Filt Rate 14; Glucose Random 70 mg/dL (60-115)
[2020-07-26 07:40] VITALS: RESP 22
[2020-07-26 07:48] LABS: Anion Gap 18 (12-20); Carbon Dioxide 15 mmol/L (22-29); Chloride 128 mmol/L (96-108); Potassium 3.5 mmol/l (3.3-5.1); Sodium 157 mmol/L (135-145)
[2020-07-26 09:15] LABS: SLIDE REVIEW VERIFIED
[2020-07-26] MEDS: 0.9 % Sodium Chloride Flush 3 ML SYRINGE IVFLUSH (09:36)
--- NOTE | 2020-07-26 11:01 | MHC.CLN ---
F/U PT IS PENDING HOSPICE SERVICE PER MD SEE MD NOTE DATED 07/25/20 DIET RX: 2000DM PUREED WITH NT LIQ -APPROPRIATE PT REFUSING TO EAT OR TAKE MEDS NOTED STAGE 2 COCCYX WILL FOLLOW WITH CARE TEAM AND PROVIDE SUPPORT NEEDED
[2020-07-26 11:14] LABS: Glucose, Whole Blood 70 mg/dL (60-115)
[2020-07-26 11:27] VITALS: RESP 20
[2020-07-26] MEDS: Ampicillin Sodium 500 MG in 0.9 % Sodium Chloride 50 ML 100 MG IV (12:12)
[2020-07-26 12:13] VITALS: RESP 26
[2020-07-26] MEDS: Morphine Sulfate 2 MG/ML CARTRIDGE 1 MG IVPUSH (12:13)
[2020-07-26 12:26] VITALS: BP 153/91; PULSE 87; RESP 20; TEMP 36.5; O2SAT 96
--- NOTE | 2020-07-26 12:28 | MHC.CM.PN ---
pt going home by kiera today at 3;00 hvns /hospice will have imformatinol at home [facility] family niece maryann aware of dc time
--- NOTE | 2020-07-26 13:01 | PM.DS ---
DS: Providers Provider Date of Service: 07/26/20 Date of admission: 07/21/20 18:24 Primary care physician: Audra Perez MD Consults: 07/22/20 09:17 Consult to Nephrology Routine Consulting Provider: Laureano Cartagena Reason for consultation: DELORIS Has provider been notified: No 07/24/20 14:05 Consult to Infectious Diseases Routine Consulting Provider: Valarie Lott Reason for consultation: enterococcal uTI DS: Diagnosis Discharge Diagnosis (1) CKD (chronic kidney disease) stage 4, GFR 15-29 ml/min: Status: Acute (2) Hypernatremia: Status: Acute Problem details: Need to change fluids now to D5 W with 2 amps (100 meq) socium bicarb per liter at 60/hr (3) Metabolic acidosis: Status: Acute Problem details: Change fluids as above (4) Acute renal failure: Status: Acute Problem details: Pt presented with prerenal and post renal DELORIS superimposed on advanced CKD with bilateral renal atrophy and bladder outflow problems with hydro improved with maher cath placement; UTI enterococcal as well (5) Urinary retention with incomplete bladder emptying: Status: Acute Problem details: Keep indwelling maher cath (6) Parkinson disease: Status: Acute (7) Intellectual disability: Status: Acute (8) Diabetes type 2, uncontrolled: Status: Acute DS: Medications Discharge Medications Home Medications: Previous Rx's Medication Instructions Recorded morphine 5 mg PO Q4H PRN #100 ml 07/26/20 DS: Summary Hospital Course Hospital Course: History of presenting illness 80 year old women presenting with poor appetite, nausea, vomiting and lethargy. She is nonverbal at baseline secondary to dementia . She has a long history of UTI and hematuria in the past. She has a history diabetic cyst opacity and does intermittent catheterizations at home. Initial lab showed potassium 5.2, bicarb 16, anion gap 23, BUN 148, creatinine 6.23 with history of chronic kidney disease. Blood sugar was 326 with history of brittle diabetes. Urinalysis appeared to be positive. Negative COVID. Abdominal and pelvic CT showed resolved hydronephrosis status post Maher catheter presumably secondary to bladder outlet obstruction. She was given 3 L of IV fluids and Zosyn ER. She will be admitted for further management and treatment of bladder outlet obstruction, UTI. Hospital course 72-year-old woman admitted with bladder outlet obstruction and UTI. Patient has history of hydronephrosis and hematuria. She does intermittent catheterizations at home. DELORIS on ckd likely multifactorial both pre renal and post renal with bilateral renal atrophy and bladder outflow obstruction with hydronephrosis Patient treated with IV fluid, Maher catheter placed creatinine trended down but remained elevated, since patient is approaching dialysis but deemed not a candidate for dialysis due to underlying dementia refusing to eat with hypernatremia, urinary tract infection, diabetes mellitus case was discussed with patient's healthcare proxy Blanca Constantino patient's sister at [phone] via engineering associate and discussed treatment options including hemodialysis versus hospice care explained that since patient is not eating and refusing medications it will be difficult to treat patient with aggressive measures she agrees for hospice, RN verified her decision since overall patient condition is poor with advanced dementia, diabetes, poor by mouth intake hypernatremia ongoing urine infection it was decided to change patient status to hospice, patient evaluated by hospice family decided to take patient home with hospice care Therefore all medications has been discontinued patient is being discharged with morphine sulfate for pain and shortness of breath, continue Maher catheter UTI. urine culture grew enterococcal faecalis/ 1 set of blood culture grew coagulase-negative Staph likely contamination, patient received 5 days of IV antibiotic In regard to diabetes mellitus and hyperlipidemia all home medications have been discontinued. Time Spent with Patient Time attestation: Total time spent providing and/or coordinating discharge services: Discharge coordination time: Greater than 30 minutes Physical Exam Vital Signs: Vital Signs: Last Vital Signs Temp 97.7 F 07/26/20 12:26 Pulse 87 07/26/20 12:26 Resp 20 07/26/20 12:26 BP 153/91 H 07/26/20 12:26 Pulse Ox 96 07/26/20 12:26 Body Mass Index 17.6 General resting comfortably in acute distress. Neck no JVD. CVS regular rate rhythm, Respiratory lungs diminished, few basilar rales, no respiratory distress Gastrointestinal abdomen soft, bowel sounds audible, no rigidity. Extremities edema. Neuro moving all 4 extremity . Skin no rash DS: Data Data Completed and Pending Labs on day of discharge: Laboratory Tests 07/21/20 07/21/20 07/21/20 11:16 12:07 12:07 WBC 7.0 RBC 3.77 L D Hgb 11.6 L D Hct 35.0 L D MCV 92.8 MCH 30.8 MCHC 33.1 RDW 14.6 Plt Count 240 D MPV 12.2 Immature Gran % (Auto) 0.4 Neut % (Auto) 82.4 H Lymph % (Auto) 11.4 L [place] % (Auto) 5.7 Eos % (Auto) 0.0 Baso % (Auto) 0.1 Lymph # (Auto) 0.8 L [place] # (Auto) 0.4 Eos # (Auto) 0.0 Baso # (Auto) 0.0 Abs Immat Gran (auto) 0.03 Absolute Neuts (auto) 5.8 Absolute Nucleated RBC 0.000 Nucleated RBC % (auto) 0.0 Neutrophils % (Manual) Band Neutrophils % Lymphocytes % (Manual) Monocytes % (Manual) Eosinophils % (Manual) Metamyelocytes % Myelocytes % Abs Neuts (Manual) Lymphocytes # (Manual) Monocytes # (Manual) Eosinophils # (Manual) Metamyelocytes # Myelocytes # Platelet Estimate Plt Morphology Comment RBC Morphology Ovalocytes [place] Cells Smear Tech's Comments Sodium Cancelled Potassium Cancelled Chloride Cancelled Carbon Dioxide Cancelled Anion Gap Cancelled BUN Cancelled Creatinine Cancelled Estim Creat Clear Calc Cancelled Estimated GFR Cancelled POC Glucose 300 H Random Glucose Cancelled Lactic Acid Calcium Cancelled Total Bilirubin Cancelled Direct Bilirubin Cancelled AST Cancelled ALT Cancelled Alkaline Phosphatase Cancelled Troponin I High Sens Total Protein Cancelled Albumin Cancelled Lipase Cancelled Urine Color Urine Appearance Urine pH Ur Specific [place] Urine Protein Urine Glucose (UA) Urine Ketones Urine Blood Urine Nitrite Ur Leukocyte Esterase Urine RBC Urine WBC Ur Squamous Epith Cells Urine Bacteria Coronavirus (PCR) Influenza Type A (PCR) Influenza Type B (PCR) RSV RNA Qual (PCR) 07/21/20 07/21/20 07/21/20 12:07 12:07 12:39 WBC RBC Hgb Hct MCV MCH MCHC RDW Plt Count MPV Immature Gran % (Auto) Neut % (Auto) Lymph % (Auto) [place] % (Auto) Eos % (Auto) Baso % (Auto) Lymph # (Auto) [place] # (Auto) Eos # (Auto) Baso # (Auto) Abs Immat Gran (auto) Absolute Neuts (auto) Absolute Nucleated RBC Nucleated RBC % (auto) Neutrophils % (Manual) Band Neutrophils % Lymphocytes % (Manual) Monocytes % (Manual) Eosinophils % (Manual) Metamyelocytes % Myelocytes % Abs Neuts (Manual) Lymphocytes # (Manual) Monocytes # (Manual) Eosinophils # (Manual) Metamyelocytes # Myelocytes # Platelet Estimate Plt Morphology Comment RBC Morphology Ovalocytes [place] Cells Smear Tech's Comments Sodium 144 Potassium 5.2 H Chloride 110 H Carbon Dioxide 16 L Anion Gap 23 H BUN 148 H* D Creatinine 6.23 H* Estim Creat Clear Calc 4.8 Estimated GFR 6 POC Glucose Random Glucose 326 H D Lactic Acid Calcium 9.4 Total Bilirubin 0.4 Direct Bilirubin 0.2 AST 33 H D ALT 31 Alkaline Phosphatase 75 Troponin I High Sens Cancelled Total Protein 7.2 Albumin 4.0 Lipase 51 Urine Color Urine Appearance Urine pH Ur Specific [place] Urine Protein Urine Glucose (UA) Urine Ketones Urine Blood Urine Nitrite Ur Leukocyte Esterase Urine RBC Urine WBC Ur Squamous Epith Cells Urine Bacteria Coronavirus (PCR) NEGATIVE Influenza Type A (PCR) NEGATIVE Influenza Type B (PCR) NEGATIVE RSV RNA Qual (PCR) NEGATIVE 07/21/20 07/21/20 07/21/20 12:39 14:26 17:38 WBC RBC Hgb Hct MCV MCH MCHC RDW Plt Count MPV Immature Gran % (Auto) Neut % (Auto) Lymph % (Auto) [place] % (Auto) Eos % (Auto) Baso % (Auto) Lymph # (Auto) [place] # (Auto) Eos # (Auto) Baso # (Auto) Abs Immat Gran (auto) Absolute Neuts (auto) Absolute Nucleated RBC Nucleated RBC % (auto) Neutrophils % (Manual) Band Neutrophils % Lymphocytes % (Manual) Monocytes % (Manual) Eosinophils % (Manual) Metamyelocytes % Myelocytes % Abs Neuts (Manual) Lymphocytes # (Manual) Monocytes # (Manual) Eosinophils # (Manual) Metamyelocytes # Myelocytes # Platelet Estimate Plt Morphology Comment RBC Morphology Ovalocytes [place] Cells Smear Tech's Comments Sodium Potassium Chloride Carbon Dioxide Anion Gap BUN Creatinine Estim Creat Clear Calc Estimated GFR POC Glucose Random Glucose Lactic Acid 0.4 L Calcium Total Bilirubin Direct Bilirubin AST ALT Alkaline Phosphatase Troponin I High Sens 29.8 H D Total Protein Albumin Lipase Urine Color YELLOW Urine Appearance CLOUDY Urine pH 6.0 Ur Specific [place] 1.020 Urine Protein 2+ H Urine Glucose (UA) NEG Urine Ketones NEG Urine Blood 3+ H Urine Nitrite NEG Ur Leukocyte Esterase 3+ H Urine RBC 50-75 H Urine WBC 76-150 H Ur Squamous Epith Cells TRACE Urine Bacteria 3+ Coronavirus (PCR) Influenza Type A (PCR) Influenza Type B (PCR) RSV RNA Qual (PCR) 07/21/20 07/21/20 07/21/20 19:59 19:59 21:31 WBC RBC Hgb Hct MCV MCH MCHC RDW Plt Count MPV Immature Gran % (Auto) Neut % (Auto) Lymph % (Auto) [place] % (Auto) Eos % (Auto) Baso % (Auto) Lymph # (Auto) [place] # (Auto) Eos # (Auto) Baso # (Auto) Abs Immat Gran (auto) Absolute Neuts (auto) Absolute Nucleated RBC Nucleated RBC % (auto) Neutrophils % (Manual) Band Neutrophils % Lymphocytes % (Manual) Monocytes % (Manual) Eosinophils % (Manual) Metamyelocytes % Myelocytes % Abs Neuts (Manual) Lymphocytes # (Manual) Monocytes # (Manual) Eosinophils # (Manual) Metamyelocytes # Myelocytes # Platelet Estimate Plt Morphology Comment RBC Morphology Ovalocytes [place]ana Cells Smear Tech's Comments Sodium Cancelled 148 H Potassium Cancelled 4.7 Chloride Cancelled 123 H Carbon Dioxide Cancelled 11 L Anion Gap Cancelled 19 BUN Cancelled 126 H* Creatinine Cancelled 5.27 H* Estim Creat Clear Calc Cancelled 5.6 Estimated GFR Cancelled 8 POC Glucose Random Glucose Cancelled 98 D Lactic Acid Calcium Cancelled 7.5 L D Total Bilirubin Cancelled 0.2 Direct Bilirubin AST Cancelled 32 H ALT Cancelled 25 Alkaline Phosphatase Cancelled 61 Troponin I High Sens 33.2 H Total Protein Cancelled 5.9 L Albumin Cancelled 3.2 L Lipase Urine Color Urine Appearance Urine pH Ur Specific [place] Urine Protein Urine Glucose (UA) Urine Ketones Urine Blood Urine Nitrite Ur Leukocyte Esterase Urine RBC Urine WBC Ur Squamous Epith Cells Urine Bacteria Coronavirus (PCR) Influenza Type A (PCR) Influenza Type B (PCR) RSV RNA Qual (PCR) 07/22/20 07/22/20 07/22/20 06:00 06:00 10:53 WBC 7.8 RBC 3.60 L Hgb 10.9 L Hct 34.2 L MCV 95.0 MCH 30.3 MCHC 31.9 RDW 14.9 Plt Count 190 MPV 11.4 Immature Gran % (Auto) 2.8 H Neut % (Auto) 78.1 H Lymph % (Auto) 13.4 L [place] % (Auto) 5.4 Eos % (Auto) 0.0 Baso % (Auto) 0.3 Lymph # (Auto) 1.0 L [place] # (Auto) 0.4 Eos # (Auto) 0.0 Baso # (Auto) 0.0 Abs Immat Gran (auto) 0.22 H Absolute Neuts (auto) 6.1 Absolute Nucleated RBC 0.000 Nucleated RBC % (auto) 0.0 Neutrophils % (Manual) Band Neutrophils % Lymphocytes % (Manual) Monocytes % (Manual) Eosinophils % (Manual) Metamyelocytes % Myelocytes % Abs Neuts (Manual) Lymphocytes # (Manual) Monocytes # (Manual) Eosinophils # (Manual) Metamyelocytes # Myelocytes # Platelet Estimate Plt Morphology Comment RBC Morphology Ovalocytes [place] Cells Smear Tech's Comments Sodium 151 H Potassium 4.5 Chloride 122 H Carbon Dioxide 13 L Anion Gap 21 H BUN 121 H* Creatinine 5.17 H* Estim Creat Clear Calc 5.7 Estimated GFR 8 POC Glucose 140 H Random Glucose 120 H Lactic Acid Calcium 8.1 L D Total Bilirubin 0.2 Direct Bilirubin AST 33 H ALT 27 Alkaline Phosphatase 65 Troponin I High Sens Total Protein 6.5 Albumin 3.5 Lipase Urine Color Urine Appearance Urine pH Ur Specific [place] Urine Protein Urine Glucose (UA) Urine Ketones Urine Blood Urine Nitrite Ur Leukocyte Esterase Urine RBC Urine WBC Ur Squamous Epith Cells Urine Bacteria Coronavirus (PCR) Influenza Type A (PCR) Influenza Type B (PCR) RSV RNA Qual (PCR) 07/22/20 07/22/20 07/23/20 18:06 20:25 05:29 WBC 6.5 RBC 3.17 L Hgb 9.5 L Hct 29.5 L MCV 93.1 MCH 30.0 MCHC 32.2 RDW 14.9 Plt Count 182 MPV 11.5 Immature Gran % (Auto) 4.2 H Neut % (Auto) 79.5 H Lymph % (Auto) 9.9 L [place] % (Auto) 6.2 Eos % (Auto) 0.0 Baso % (Auto) 0.2 Lymph # (Auto) 0.6 L [place] # (Auto) 0.4 Eos # (Auto) 0.0 Baso # (Auto) 0.0 Abs Immat Gran (auto) 0.27 H Absolute Neuts (auto) 5.2 Absolute Nucleated RBC 0.000 Nucleated RBC % (auto) 0.0 Neutrophils % (Manual) Band Neutrophils % Lymphocytes % (Manual) Monocytes % (Manual) Eosinophils % (Manual) Metamyelocytes % Myelocytes % Abs Neuts (Manual) Lymphocytes # (Manual) Monocytes # (Manual) Eosinophils # (Manual) Metamyelocytes # Myelocytes # Platelet Estimate Plt Morphology Comment RBC Morphology Ovalocytes Elana Cells Smear Tech's Comments VERIFIED Sodium Potassium Chloride Carbon Dioxide Anion Gap BUN Creatinine Estim Creat Clear Calc Estimated GFR POC Glucose 262 H 263 H Random Glucose Lactic Acid Calcium Total Bilirubin Direct Bilirubin AST ALT Alkaline Phosphatase Troponin I High Sens Total Protein Albumin Lipase Urine Color Urine Appearance Urine pH Ur Specific [place] Urine Protein Urine Glucose (UA) Urine Ketones Urine Blood Urine Nitrite Ur Leukocyte Esterase Urine RBC Urine WBC Ur Squamous Epith Cells Urine Bacteria Coronavirus (PCR) Influenza Type A (PCR) Influenza Type B (PCR) RSV RNA Qual (PCR) 07/23/20 07/23/20 07/23/20 05:29 07:39 11:16 WBC RBC Hgb Hct MCV MCH MCHC RDW Plt Count MPV Immature Gran % (Auto) Neut % (Auto) Lymph % (Auto) [place] % (Auto) Eos % (Auto) Baso % (Auto) Lymph # (Auto) [place] # (Auto) Eos # (Auto) Baso # (Auto) Abs Immat Gran (auto) Absolute Neuts (auto) Absolute Nucleated RBC Nucleated RBC % (auto) Neutrophils % (Manual) Band Neutrophils % Lymphocytes % (Manual) Monocytes % (Manual) Eosinophils % (Manual) Metamyelocytes % Myelocytes % Abs Neuts (Manual) Lymphocytes # (Manual) Monocytes # (Manual) Eosinophils # (Manual) Metamyelocytes # Myelocytes # Platelet Estimate Plt Morphology Comment RBC Morphology Ovalocytes [place] Cells Smear Tech's Comments Sodium 148 H Potassium 4.2 Chloride 120 H Carbon Dioxide 15 L Anion Gap 17 BUN 114 H* Creatinine 4.41 H* Estim Creat Clear Calc 6.7 Estimated GFR 10 POC Glucose 304 H 210 H Random Glucose 316 H D Lactic Acid Calcium 7.3 L D Total Bilirubin Direct Bilirubin AST ALT Alkaline Phosphatase Troponin I High Sens Total Protein Albumin Lipase Urine Color Urine Appearance Urine pH Ur Specific [place] Urine Protein Urine Glucose (UA) Urine Ketones Urine Blood Urine Nitrite Ur Leukocyte Esterase Urine RBC Urine WBC Ur Squamous Epith Cells Urine Bacteria Coronavirus (PCR) Influenza Type A (PCR) Influenza Type B (PCR) RSV RNA Qual (PCR) 07/23/20 07/23/20 07/24/20 16:33 20:48 07:37 WBC RBC Hgb Hct MCV MCH MCHC RDW Plt Count MPV Immature Gran % (Auto) Neut % (Auto) Lymph % (Auto) [place] % (Auto) Eos % (Auto) Baso % (Auto) Lymph # (Auto) [place] # (Auto) Eos # (Auto) Baso # (Auto) Abs Immat Gran (auto) Absolute Neuts (auto) Absolute Nucleated RBC Nucleated RBC % (auto) Neutrophils % (Manual) Band Neutrophils % Lymphocytes % (Manual) Monocytes % (Manual) Eosinophils % (Manual) Metamyelocytes % Myelocytes % Abs Neuts (Manual) Lymphocytes # (Manual) Monocytes # (Manual) Eosinophils # (Manual) Metamyelocytes # Myelocytes # Platelet Estimate Plt Morphology Comment RBC Morphology Ovalocytes [place] Cells Smear Tech's Comments Sodium Potassium Chloride Carbon Dioxide Anion Gap BUN Creatinine Estim Creat Clear Calc Estimated GFR POC Glucose 137 H 129 H 200 H Random Glucose Lactic Acid Calcium Total Bilirubin Direct Bilirubin AST ALT Alkaline Phosphatase Troponin I High Sens Total Protein Albumin Lipase Urine Color Urine Appearance Urine pH Ur Specific [place] Urine Protein Urine Glucose (UA) Urine Ketones Urine Blood Urine Nitrite Ur Leukocyte Esterase Urine RBC Urine WBC Ur Squamous Epith Cells Urine Bacteria Coronavirus (PCR) Influenza Type A (PCR) Influenza Type B (PCR) RSV RNA Qual (PCR) 07/24/20 07/24/20 07/24/20 11:59 11:59 12:36 WBC 5.9 RBC 3.15 L Hgb 9.5 L Hct 29.3 L MCV 93.0 MCH 30.2 MCHC 32.4 RDW 14.7 Plt Count 163 MPV 10.9 Immature Gran % (Auto) Cancelled Neut % (Auto) Cancelled Lymph % (Auto) Cancelled [place] % (Auto) Cancelled Eos % (Auto) Cancelled Baso % (Auto) Cancelled Lymph # (Auto) Cancelled [place] # (Auto) Cancelled Eos # (Auto) Cancelled Baso # (Auto) Cancelled Abs Immat Gran (auto) Cancelled Absolute Neuts (auto) Cancelled Absolute Nucleated RBC 0.000 Nucleated RBC % (auto) 0.0 Neutrophils % (Manual) 92 H Band Neutrophils % 0 L Lymphocytes % (Manual) 5 L Monocytes % (Manual) 1 L Eosinophils % (Manual) 1 Metamyelocytes % 1 Myelocytes % Abs Neuts (Manual) 5.4 Lymphocytes # (Manual) 0.3 L Monocytes # (Manual) 0.1 Eosinophils # (Manual) 0.1 Metamyelocytes # 0.1 Myelocytes # Platelet Estimate NORMAL Plt Morphology Comment NORMAL RBC Morphology NOTED Ovalocytes 1+ [place] Cells Smear Tech's Comments Sodium 151 H Potassium 3.8 Chloride 124 H Carbon Dioxide 16 L Anion Gap 15 BUN 101 H* Creatinine 3.58 H Estim Creat Clear Calc 8.3 Estimated GFR 12 POC Glucose 210 H Random Glucose 250 H Lactic Acid Calcium 6.7 L D Total Bilirubin Direct Bilirubin AST ALT Alkaline Phosphatase Troponin I High Sens Total Protein Albumin Lipase Urine Color Urine Appearance Urine pH Ur Specific [place] Urine Protein Urine Glucose (UA) Urine Ketones Urine Blood Urine Nitrite Ur Leukocyte Esterase Urine RBC Urine WBC Ur Squamous Epith Cells Urine Bacteria Coronavirus (PCR) Influenza Type A (PCR) Influenza Type B (PCR) RSV RNA Qual (PCR) 07/24/20 07/24/20 07/25/20 16:44 21:09 05:30 WBC 5.4 RBC 3.01 L Hgb 9.0 L Hct 27.7 L MCV 92.0 MCH 29.9 MCHC 32.5 RDW 14.6 Plt Count 155 L MPV 11.2 Immature Gran % (Auto) Cancelled Neut % (Auto) Cancelled Lymph % (Auto) Cancelled [place] % (Auto) Cancelled Eos % (Auto) Cancelled Baso % (Auto) Cancelled Lymph # (Auto) Cancelled [place] # (Auto) Cancelled Eos # (Auto) Cancelled Baso # (Auto) Cancelled Abs Immat Gran (auto) Cancelled Absolute Neuts (auto) Cancelled Absolute Nucleated RBC 0.000 Nucleated RBC % (auto) 0.0 Neutrophils % (Manual) 93 H Band Neutrophils % 0 L Lymphocytes % (Manual) 3 L Monocytes % (Manual) 2 Eosinophils % (Manual) Metamyelocytes % Myelocytes % 2 Abs Neuts (Manual) 5.0 Lymphocytes # (Manual) 0.2 L Monocytes # (Manual) 0.1 Eosinophils # (Manual) Metamyelocytes # Myelocytes # 0.1 Platelet Estimate NORMAL Plt Morphology Comment NORMAL RBC Morphology NOTED Ovalocytes 1+ [place] Cells 1+ Smear Tech's Comments Sodium Potassium Chloride Carbon Dioxide Anion Gap BUN Creatinine Estim Creat Clear Calc Estimated GFR POC Glucose 228 H 90 Random Glucose Lactic Acid Calcium Total Bilirubin Direct Bilirubin AST ALT Alkaline Phosphatase Troponin I High Sens Total Protein Albumin Lipase Urine Color Urine Appearance Urine pH Ur Specific [place] Urine Protein Urine Glucose (UA) Urine Ketones Urine Blood Urine Nitrite Ur Leukocyte Esterase Urine RBC Urine WBC Ur Squamous Epith Cells Urine Bacteria Coronavirus (PCR) Influenza Type A (PCR) Influenza Type B (PCR) RSV RNA Qual (PCR) 07/25/20 07/25/20 07/25/20 05:30 07:23 11:17 WBC RBC Hgb Hct MCV MCH MCHC RDW Plt Count MPV Immature Gran % (Auto) Neut % (Auto) Lymph % (Auto) [place] % (Auto) Eos % (Auto) Baso % (Auto) Lymph # (Auto) [place] # (Auto) Eos # (Auto) Baso # (Auto) Abs Immat Gran (auto) Absolute Neuts (auto) Absolute Nucleated RBC Nucleated RBC % (auto) Neutrophils % (Manual) Band Neutrophils % Lymphocytes % (Manual) Monocytes % (Manual) Eosinophils % (Manual) Metamyelocytes % Myelocytes % Abs Neuts (Manual) Lymphocytes # (Manual) Monocytes # (Manual) Eosinophils # (Manual) Metamyelocytes # Myelocytes # Platelet Estimate Plt Morphology Comment RBC Morphology Ovalocytes [place]ana Cells Smear Tech's Comments Sodium 151 H Potassium 3.3 Chloride 126 H Carbon Dioxide 16 L Anion Gap 12 BUN 84 H* Creatinine 3.19 H Estim Creat Clear Calc 9.4 Estimated GFR 14 POC Glucose 209 H 258 H Random Glucose 211 H Lactic Acid Calcium 6.4 L Total Bilirubin Direct Bilirubin AST ALT Alkaline Phosphatase Troponin I High Sens Total Protein Albumin Lipase Urine Color Urine Appearance Urine pH Ur Specific [place] Urine Protein Urine Glucose (UA) Urine Ketones Urine Blood Urine Nitrite Ur Leukocyte Esterase Urine RBC Urine WBC Ur Squamous Epith Cells Urine Bacteria Coronavirus (PCR) Influenza Type A (PCR) Influenza Type B (PCR) RSV RNA Qual (PCR) 07/25/20 07/25/20 07/26/20 16:16 19:41 05:30 WBC 7.0 RBC 3.18 L Hgb 9.6 L Hct 29.5 L MCV 92.8 MCH 30.2 MCHC 32.5 RDW 14.3 Plt Count 164 MPV 11.0 Immature Gran % (Auto) 3.7 H Neut % (Auto) 84.3 H Lymph % (Auto) 9.3 L [place] % (Auto) 2.7 Eos % (Auto) 0.0 Baso % (Auto) 0.0 Lymph # (Auto) 0.7 L [place] # (Auto) 0.2 Eos # (Auto) 0.0 Baso # (Auto) 0.0 Abs Immat Gran (auto) 0.26 H Absolute Neuts (auto) 5.9 Absolute Nucleated RBC 0.000 Nucleated RBC % (auto) 0.0 Neutrophils % (Manual) Band Neutrophils % Lymphocytes % (Manual) Monocytes % (Manual) Eosinophils % (Manual) Metamyelocytes % Myelocytes % Abs Neuts (Manual) Lymphocytes # (Manual) Monocytes # (Manual) Eosinophils # (Manual) Metamyelocytes # Myelocytes # Platelet Estimate Plt Morphology Comment RBC Morphology Ovalocytes Elana Cells Smear Tech's Comments VERIFIED Sodium Potassium Chloride Carbon Dioxide Anion Gap BUN Creatinine Estim Creat Clear Calc Estimated GFR POC Glucose 42 L* 63 Random Glucose Lactic Acid Calcium Total Bilirubin Direct Bilirubin AST ALT Alkaline Phosphatase Troponin I High Sens Total Protein Albumin Lipase Urine Color Urine Appearance Urine pH Ur Specific [place] Urine Protein Urine Glucose (UA) Urine Ketones Urine Blood Urine Nitrite Ur Leukocyte Esterase Urine RBC Urine WBC Ur Squamous Epith Cells Urine Bacteria Coronavirus (PCR) Influenza Type A (PCR) Influenza Type B (PCR) RSV RNA Qual (PCR) 07/26/20 07/26/20 07/26/20 05:30 07:12 11:10 WBC RBC Hgb Hct MCV MCH MCHC RDW Plt Count MPV Immature Gran % (Auto) Neut % (Auto) Lymph % (Auto) [place] % (Auto) Eos % (Auto) Baso % (Auto) Lymph # (Auto) [place] # (Auto) Eos # (Auto) Baso # (Auto) Abs Immat Gran (auto) Absolute Neuts (auto) Absolute Nucleated RBC Nucleated RBC % (auto) Neutrophils % (Manual) Band Neutrophils % Lymphocytes % (Manual) Monocytes % (Manual) Eosinophils % (Manual) Metamyelocytes % Myelocytes % Abs Neuts (Manual) Lymphocytes # (Manual) Monocytes # (Manual) Eosinophils # (Manual) Metamyelocytes # Myelocytes # Platelet Estimate Plt Morphology Comment RBC Morphology Ovalocytes [place] Cells Smear Tech's Comments Sodium 157 H Potassium 3.5 Chloride 128 H Carbon Dioxide 15 L Anion Gap 18 BUN 79 H Creatinine 3.15 H Estim Creat Clear Calc 9.4 Estimated GFR 14 POC Glucose 76 70 Random Glucose 70 D Lactic Acid Calcium 6.7 L Total Bilirubin Direct Bilirubin AST ALT Alkaline Phosphatase Troponin I High Sens Total Protein Albumin Lipase Urine Color Urine Appearance Urine pH Ur Specific [place] Urine Protein Urine Glucose (UA) Urine Ketones Urine Blood Urine Nitrite Ur Leukocyte Esterase Urine RBC Urine WBC Ur Squamous Epith Cells Urine Bacteria Coronavirus (PCR) Influenza Type A (PCR) Influenza Type B (PCR) RSV RNA Qual (PCR) Preliminary micro results at discharge 07/21/20 17:38 Blood Culture - Preliminary Blood - Venous No growth after 48 hours. Discharge Plan Discharge Patient Disposition: Hospice - Home Referrals: [facility] [Outside] Audra Perez MD [Primary Care Provider] - Discharge Medications: New morphine 20 mg/5 mL (4 mg/mL) solution 5 mg PO Q4H PRN (Reason: dyspnea) Qty: 100 RF: 0 Discontinued doxazosin 1 mg tablet 0.5 mg PO BEDTIME Qty: 15 RF: 3 insulin aspart U-100 [Novolog Flexpen U-100 Insulin] 100 unit/mL (3 mL) insulin pen 7 unit subcut TIDAC RF: 0 Veltassa 8.4 gram powder in packet 8.4 g PO DAILY RF: 0 Toujeo SoloStar U-300 Insulin 300 unit/mL (1.5 mL) insulin pen 8 unit subcut DAILY RF: 0 ondansetron HCl 4 mg Tablet 4 mg PO TID PRN (Reason: Nausea And Vomiting) RF: 0 ascorbic acid (vitamin C) 500 mg Tablet 500 mg PO BID RF: 0 ferrous sulfate 325 mg (65 mg iron) Tablet 325 mg PO BID RF: 0 bethanechol chloride 50 mg Tablet 25 mg PO BID RF: 0 Prolia 60 mg/mL syringe 60 mg subcut [id number] RF: 0 atorvastatin 10 mg tablet 10 mg PO BEDTIME RF: 0 Discharge Orders: Discharge Order (Routine); Ordered 07/26/20 Ordered By: Jeri Alarcon Activity on Discharge: As tolerated Print Language: Georgian Visit Report Forms: Patient Portal Discharge page Care Plan Goals: hospice Health Concerns: comfort care Plan of Treatment: follow up with pcp and hospice
[2020-07-26 15:16] VITALS: RESP 38
== END 2020-07-26 15:46 | disposition hospice, home (50) | DRG 690 ==
LOC: HO.ED 18:25 → HO.IMC 07-22 07:29
PROVIDERS: Emergency Medicine Emergency Medical Services; Internal Medicine; Nurse Practitioner Acute Care; Physician Assistant; Admitting Provider Internal Medicine; Emergency Provider Internal Medicine; PCP Family Medicine; Visit Provider Hospitalist
DX: N13.6 Pyonephrosis (principal); E44.1 Mild protein-calorie malnutrition; Z68.1 Body mass index [BMI] 19.9 or less, adult; E87.0 Hyperosmolality and hypernatremia; R31.9 Hematuria, unspecified; N18.4 Chronic kidney disease, stage 4 (severe); E11.22 Type 2 diabetes mellitus with diabetic chronic kidney disease; E78.5 Hyperlipidemia, unspecified; E86.0 Dehydration; F79 Unspecified intellectual disabilities; G20 Parkinson's disease; B95.2 Enterococcus as the cause of diseases classified elsewhere; F02.80 Dementia in other diseases classified elsewhere, unspecified severity, without behavioral disturbance, psychotic disturbance, mood disturbance, and anxiety; D63.1 Anemia in chronic kidney disease; N17.0 Acute kidney failure with tubular necrosis; Z20.828 Contact with and (suspected) exposure to other viral communicable diseases
CPT/HCPCS: 0241U; 36415; 70450; 71045; 74176; 80048; 80053; 80076; 81001; 82248; 82947; 83605; 83690; 84484; 85007; 85025; 85027; 87040; 87086; 87088; 87147; 87186; 87205; 93005; 96361; 96365; 99232; 99233; 99285; J0290; J2270; J2543